=== PATIENT | male | born 1950 | race Caucasian/White ===

== ENCOUNTER 2024-07-09 11:35 | Outpatient (REF) | payer MEDICARE, SELFPAY ==
--- OUTSIDE RECORDS SUMMARY | 2024-07-09 14:03 | XMS_ITS ---
Author Organization [facility] Address [address] [place] [address] Care Team Providers Care Superintendent Board Mill Name Role Phone ReederGuanakito sherwood Primary Care Provider UnavailSujit López Unavailable [phone] Vaibhav Gordon Unavailable [phone] Allergies No Known Allergies REASON FOR VISIT Painful nail(s) aggrevated by shoes and causing difficulty standing/walking., Ingrown nail(s) Medications Medication SIG (Take, Route, Frequency, Duration) Notes Start Date End Date Status Doxycycline Calcium Active Digoxin 125 MCG Orally Acti ve Furosemide 20 MG as directed Orally Active Eliquis 5 MG Orally Active Atorvastatin Calcium 40 MG 1 tablet Oral ly Once a day for 30 day(s) Active Acetaminophen 2 capsules at bedtime Active Aspirin 81 MG 1 tablet Orally Once a day for 30 day(s) Active Vitamin D3 2000 [place] A [place] Amiodarone HCl 200 MG 1 tablet Orally On ce a day Active Tamsulosin HCl Activ e Metoprolol Succinate ER 25 MG 1 tablet Orally Once a day for 30 day(s) Active Losartan Potassium 25 MG 1 tablet Orally Once a day for 30 day(s) Active Probiotic Active Montelukast Sodium 10 MG 1 tablet Orally Once a day for 30 day(s) Active Social History Tobacco Use: Social History Observation Description Date Details (start date - stop date) Current Smoker NA - NA Tobacco Use/Smoking Question Answer Notes Are you a: current smoker How many cigarettes a day do you smoke? 21-30 Additional Findings: Tobacco Non-User Current no n-smoker Tobacco use other than smoking: Question Answer Notes Are you an other tobacco user? No Vital Signs Height 5ft 10in in 02/08/2024 Weight 250 lbs 02/08/2024 BMI 35.87 kg/m2 02/08/2024 Encounters Encounter Location Date Provider Diagnosis [facility] [address] [address] 02/08/2024 Vaibhav Gordon Pain in left foot M79.672 ; Pain in right foot M79.671 ; Ingrowing nail L60.0 ; Primary osteoarthritis, right ankle and foot M19.071 ; Tinea unguium B35.1 ; Pain in right toe(s) M79.674 ; Pain in left toe(s) M79.675 ; Other hammer toe(s) (acquired), left foot M20.42 and Atherosclerosis of artery of both lower extremities I70.203 Assessments Encounter Date Diagnosis (ICD Code) Assessment Notes Treatment Notes Treatment Clinical Notes Section Notes 02/08/2024 Pain in left foot (ICD-10 - M79.672) 02/08/2024 Pain in right foot (ICD-10 - M79.671) 02/08/2024 Ingrowing nail (ICD-10 - L60.0) 02/08/2024 Primary osteoarthritis, right ankle and foot (ICD-10 - M19.071) 02/08/2024 Tinea unguium (ICD-10 - B35.1) 02/08/2024 Pain in right toe(s) (ICD-10 - M79.674) 02/08/2024 Pain in left toe(s) (ICD-10 - M79.675) 02/08/2024 Other hammer toe(s) (acquired), left foot (ICD-10 - M20.42) 02/08/2024 Atherosclerosis of artery of both lower extremities (ICD-10 - I70.203) Plan Of Treatment Next Appt Details Follow Up: 3 Months, Reason: Provider Name:Sujit Main , 08/13/2024 01:00:00 PM, [address] [place] [address], [place] [address], [place], [address], Procedure Notes * Category Sub-Category Detail Notes Debride Nail 6-10 Nail debridement Nail debridem ent performed extensively to reduce/remove overall nail length and girth, subungual debris, and necrotic tissue, by manual and electrical means with use of a nail nipper and/or dremel, to more viable healthy nail plate or bed tissue 6-10. Silver nitrate used for any petechial bleeding as necessary. Patient chooses, no pharmaceutical tx (92004) Keratoma Treatment Parring or Cutting o f Benign Hyperkeratotic Lesion(s) 06735 ( 2-4 Lesions ) - The Benign hyperkeratotic lesions, as described above were pared, and/or cut utilizing a sterile 15 blade, tissue nippers, and/or dremel, Q8 Progress Notes * Willie EHNDERSON LDOB:[birth year] (73 yo M)Acc No.[id number]:02/08/2024 Progress Note Patient:?Willie Henderson Provider:?Vaibhav Gordon DPM :1950???Age:73 Y???Sex:Male Antonino e:02/08/2024 Address:[address] [place], [place] [id number] Pcp:Guanakito Reeder Subjective: * Chief Complaints: * ??? 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.?Foot Pain:?Nature:?aching, stiffness, swelling.?Location:?RIGHT, Rearfoot, Top, Outside.?Duration:?several years.?Onset:?pt recalls getting injury age 10 getting injured in spokes of tractor while planting cabbage with his father.?Aggravated:?especially toward the end of the day.?Treatments:?cortisone injection, improves condition.?Painful Nails:?Pt States Last PCP Visit:?Date:?10/19/2023 * ROS:?General/Constitutional:?Nausea?denies.?Vomiting?denies.?Hunger Thirst?denies.?Loss appetite?denies.?Chills?denies.?Fatigue?denies.?Fever?denies.?Night Sweats?denies.?Unexplained weight loss?denies.?Unexplained weight gain?denies.?HEENTM:?Dentures?denies.?Dizziness?denies.?Glasses/contacts?denies.?Retinopathy?de nies.?Blurred/double vision?denies.?TMJ?denies.?Discharge/drainage?denies.?Implants?denies.?Sore throat?denies.?Dental implants?denies.?Hard of hearing ?admits.?Difficulty chewing/swallowing/speaking?denies.?Nose bleeds?denies.?Sore mouth?denies.?Respiratory:?On Oxygen?denies.?Pneumonia/pleurisy?denies.?Bronchitis?denies.?Emphysema?denies.?C oughing?denies.?Cough blood?denies.?Shortness of breath?denies.?Wheezing?denies.?Cardiovascular:?Pacemaker?denies.?MVP?denies.?WPW?denies.?CHF?denies.?Heart attack?denies.?Septal defect?denies.?Rapid beat?denies.?Chest pain ?denies.?Atrial Fib.?admits.?Murmur/Palpitations?denies.?Gastrointestinal:?Hemorrhoids?denies.?Stomach/Abdominal pain?denies.?Dark blood stool?denies.?Irritable bowel ?denies.?Constipation?denies.?Diarrhea?denies.?Hematology:?Swelling?denies.?Clots?denies.?Varicose Veins?denies.?Bruising?denies.?Bleeding problem?denies.?Genitourinary:?Blood urine?denies.?Frequent/Painfu/urination/bladder control?denies.?Kidney stones?denies.?Infection (UTI)?denies.?Nephropathy?denies.?sex trans dis (STD)?denies.?Prostate?denies.?Musculoskeletal:?Hammertoes?denies.?Bunions?denies.?Back Pain?denies.?Muscle Cramps/ Resting?denies.?Muscle cramps / walking?denies.?Generalized aches and pains?denies.?Weakness?denies.?Integ.:?Brown?denies.?Scars?denies.?Corns/calluses?denies.?Ingrown nails?admits.?Painful nails?admits.?Open Sores?denies.?Rashes?denies.?Neurologic:?Difficulty sleeping?denies.?Brain disorder?denies.?Numbness?denies.?Balance trouble?denies.?Confusion?denies.?Fainting/blackouts?denies.?Tingling?denies.?Tr emors?denies.? * Medical History:? * Surgical History:?Blood clot 04/15/19Hematoma 04/16/19 * Hospitalization/Major Diagno stic Procedure:?[facility] Blood clot left leg 16 days 04/2019[facility] diverticulitis 09/2021[facility] chest xray 07/2023 * Family History:?Mother: dece ased, heart attack, poor circulation, diagnosed with Unspecified essential hypertension.?Father: , heart attack, poor circulation, diagnosed with Unspecified essential hypertension.?Spouse: alive.? * Social History:?Tobacco Use:?Tobacco Use/Smoking?Are you a:?current smoker ?How many cigarettes a day do you smoke??21-30 ?Additional Findings: Tobacco Non-User?Current non-smoker ?Tobacco use other than smoking?Are you an other tobacco user??No ???Miscellaneous:?Caffeine: yes, frequency:, 1-2 cups per day. ?Exercise: yes. ?Marital status: . ?Occupation: [employer]. * Medications:?TakingAcetamino phen 2 capsules at bedtimeAmiodarone HCl 200 MG Tablet 1 tablet Orally Once a dayAspirin 81 MG Tablet Chewable 1 tablet Orally Once a dayAtorvastatin Calcium 40 MG Tablet 1 tablet Orally Once a dayDigoxin 125 MCG Tablet Orally Doxycycline Calcium Eliquis 5 MG Tablet Orally Furosemide 20 MG Tablet as directed Orally Losartan Potassium 25 MG Tablet 1 tablet Orally Once a dayMetoprolol Succinate ER 25 MG Tablet Extended Release 24 Hour 1 tablet Orally Once a dayMontelukast Sodium 10 MG Tablet 1 tablet Orally Once a dayProbiotic Tamsulosin HCl Vitamin D3 1999 Medication List reviewed and reconciled with the patientTaking Acetaminophen 2 capsules at bedtimeTaking Amiodarone HCl 200 MG Tablet 1 tablet Orally Once a dayTaking Aspirin 81 MG Tablet Chewable 1 tablet Orally Once a dayTaking Atorvastatin Calcium 40 MG Tablet 1 tablet Orally Once a dayTaking Digoxin 125 MCG Tablet Orally Taking Doxycycline Calcium Taking Eliquis 5 MG Tablet Orally Taking Furosemide 20 MG Tablet as directed Orally Taking Losartan Potassium 25 MG Tablet 1 tablet Orally Once a dayTaking Metoprolol Succinate ER 25 MG Tablet Extended Release 24 Hour 1 tablet Orally Once a dayTaking Montelukast Sodium 10 MG Tablet 1 tablet Orally Once a dayTaking Probiotic Taking Tamsulosin HCl Taking Vitamin D3 1999 Medication List reviewed and reconciled with the patient * Allergies:?N.K.D.A.yes[Aller gies Verified] Objective: * Vitals:?Ht: 5ft 10in, Wt:250 , BMI:35.87, Shoe size:12. * Examination: ???General Examination: ?GENERAL APPEARANCE:?pleasant, alert, well nourished, well developed, well hydrated, with good attention to hygene/body habitus, and in no acute distress.?ORIENTED:?person,place, and time.?Neurological: ?SENSORY:?Neurological exam reveals intact sensorium, pain sensation normal, vibration sensation intact, pinprick sensation is normal in the lower extremities, Pt denies, anesthesia, burning, paresthesia, tingling, B/L, Neurological exam demonstrates pop anterior--lateral right ankle .?Vascular: ?DP PULSES:? 0/4, B/L.?PT PULSES:? 1/4, B/L.?CAPILLARY FILL TIME:? delayed, all digits, B/L.?SKIN TEMPERTURE GRADIENT OF THE LOWER EXTERMITIES:? decreased, cool to cold, proximal to distal, B/L.?HAIR GROWTH/TEXTURE/ELASTICITY/TURGOR:? decreased, B/L.?PIGMENTATION:? cyanotic, B/L.?EDEMA:? 1/4, B/L, Feet, Ankle(s), Leg(s).?Orthopedic: ?MUSCLE STRENGTH:?5/5 all groups in a symmetrical fashion , B/L.?Nails: ?NAILS are:?elongated,overgrown,dystrophic,greater than 3mm thick,discolored and friable with crumbly malodorous subungual debris, with pain on palpation, 1-5 B/L .?Dermatologic: ?SKIN FINDINGS:? Skin exam reveals Keratotic lesion(s) located at, Medial plantar, IPJ, TA, T5, Skin shows sign(s) of dried hematoma plm t5 ipj.? Assessment: * Assessment: 1.?Pain in left foot - M79.6 72?2.?Pain in right foot - M79.671?3.?Ingrowing nail - L60.0 (Primary)?4.?Primary osteoarthritis, right ankle and foot - M19.071?5.?Tinea unguium - B35.1?6.?Pain in right toe(s) - M79.674?7.?Pain in left toe(s) - M79.675?8.?Other hammer toe(s) (acquired), left foot - M20.42?9.?Atherosclerosis of artery of both lower extremities - I70.203? Plan: * Treatment: * Procedures:?Debride Nail 6-10:?Nail debridement?Nail debridement performed extensively to reduce/remove overall nail length and girth, subungual debris, and necrotic tissue, by manual and electrical means with use of a nail nipper and/or dremel, to more viable healthy nail plate or bed tissue 6-10. Silver nitrate used for any petechial bleeding as necessary. Patient chooses, no pharmaceutical tx (31574).?Keratoma Treatment:?Parring or Cutting of Benign Hyperkeratotic Lesion(s)?91920 ( 2-4 Lesions ) - The Benign hyperkeratotic lesions, as described above were pared, and/or cut utilizing a sterile 15 blade, tissue nippers, and/or dremel, Q8.? * Procedure Codes:?44743 DEBRI DE NAIL, 6 OR MORE, Modifiers: XS 49457 TRIM SKIN LESIONS, 2 TO 4, Modifiers: Q8 * Follow Up:?3 Months * Images: * Sign off status: Completed true * Provider:?Vaibhav Gordon DPM Date:? 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 Foot Pain Nature: aching, stiffness, swelling Location: RIGHT, Rearfoot, Top , Outside Duration: several years Onset: pt recalls getting i njury age 10 getting injured in spokes of tractor while planting cabbage with his father Aggravated: especially toward th e end of the day Treatments: cortisone injection, improves condition Examination Category Sub-Category Detail Notes Category Not es Neurological SENSORY: Neurological exa m reveals intact sensorium, pain sensation normal, vibration sensation intact, pinprick sensation is normal in the lower extremities, Pt denies, anesthesia, burning, paresthesia, tingling, B/L, Neurological exam demonstrates pop anterior--lateral right ankle Dermatologic SKIN FINDINGS: Skin exam reveal s Keratotic lesion(s) located at, Medial plantar, IPJ, TA, T5, Skin shows sign(s) of dried hematoma plm t5 ipj Orthopedic MUSCLE STRENGTH: 5/5 all groups in a symmetrical fashion , B/L General Examination GENERAL APPEARANCE: pleasant , alert, well nourished, well developed, well hydrated, with good attention to hygene/body habitus, and in no acute distress ORIENTED: person,place, and ti me Vascular DP PULSES (B): 0/4, B/L PT PULSES (B): 1/4, B/L CAPILLARY FILL TIME: delayed, all digits , B/L TEMPERTURE GRADIENT (C): decreased, cool to cold, proximal to distal, B/L TROPHIC CONDITION-TEXTURE/ELASTICITY/TURGOR/HAIR GROWTH (B): decreased, B/L EDEMA (C): 1/4, B/L, Feet, Ankl e(s), Leg(s) PIGMENTATION: cyanotic, B/L Nails NAILS are: elongated,overgr own,dystrophic,greater than 3mm thick,discolored and friable with crumbly malodorous subungual debris, with pain on palpation, 1-5 B/L
--- OUTSIDE RECORDS SUMMARY | 2024-07-09 14:03 | XMS_ITS | Clinical Summary ---
Author Organization [facility] Address [address] [place] [address] Care Team Providers Care Commodities Broker Name Role Phone Guankaito Reeder MD Primary Care Provider [phone] Allergies No known active allergies Medications Medication Sig Dispensed Refills Start Date End Date Status losartan (COZAAR) 100 MG tablet Take 100 mg by mouth daily. 0 Active dabigatran etexilate (PRADAXA) 150 MG capsu Take 150 mg by mouth 2 (two) times a day. 0 Active sildenafil (VIAGRA) 100 MG tablet Take 100 mg by mouth daily as needed for erectile dysfunction. 0 Active metoprolol succinate (TOPROL-XL) 24 hr tablet 50 mg Take by mouth daily. 0 Active simvastatin (ZOCOR) tablet 5 mg Take 5 mg by mouth every night at bedtime. 0 Active Active Problems No known active problems Social History Tobacco Use Types Packs/Day Years Used Date Smoking Tobacco: Every Day Cigarettes 1 Smokeless Tobacco: Never Alcohol Use Standard Drinks/Week Comments No 0 (1 standard drink = 0.6 oz pur e alcohol) Sex and Gender Information Value Date Recorded Sex Assigned at Male 02/27/2024 3:58 PM EDT Gender Identity Not on file Sexual Orientation Not on file Last Filed Vital Signs Vital Sign Reading Time Taken Comments Blood Pressure 150/81 04/30/2017 8:49 AM EST Pulse 56 04/30/2017 8:49 AM EST Temperature - - Respiratory Rate - - Oxygen Saturation - - Inhaled Oxygen Concentration - - Weight 128.5 kg (283 lb 3.2 oz) 04/30/2017 8:49 AM EST Height 172.7 cm (5' 8 ) 04/30/2017 8:49 AM EST Body Mass Index 43.06 04/30/2017 8:49 AM EST Plan of Treatment Health Maintenance Due Date Last Done Comments Hepatitis C Screening 1950 COVID-19 Vaccine (#1) 1950 Pneumococcal Vaccine (1 of 2 - PCV) 1956 Depression Screening 1962 Preventative Health Evaluation 1968 DTap / Tdap / Td (1 - Tdap) 1969 Colon Cancer Screening (Colonoscopy) 1995 Shingrix-Zoster Vaccine (1 of 2) 2000 Fall Risk Assessment 2015 Influenza Vaccine (#1) 2024 RSV Adult > 60+ Yrs or Pregn ant (1 - 1-dose 75+ series) 2025 Hepatitis B Vaccines Aged Out No long er eligible based on patient's age to complete this topic RSV Ped < 20 months Aged Out No longe r eligible based on patient's age to complete this topic Care Teams Commodities Broker Relationship Specialty Start Date End Date Guanakito Reeder MD PCP - General Internal Medicine 04/30/17
--- OUTSIDE RECORDS SUMMARY | 2024-07-09 14:04 | XMS_ITS | Continuity of Care Document ---
Author Organization [facility] Address [address] [place] [address]- Care Team Providers Care Aws Software Development Engineer Name Role Phone Varinder ALBA, Guanakito Sewell Primary Care Physician [place] [facility] [place] 06/02/24 - 07/02/24 [facility] [address] [place] [id number] Encounter Type: Triage Allergies, Adverse Reactions, Alerts No Known Medication Allergies Immunizations Given and Recorded Vaccine Date Status Refusal Reason Influenza Virus Vaccine (oldterm) 03/11/19 Recorde d Medications albuterol CFC free 90 mcg/inh inhalation aerosol 2, puffs, Inhalation, Every 6 hours, PRN, # 9 Gm, Refills 0, Maintenance, 04/17/19 7:19:46 PM EST, Aerosol Start Date: 04/17/19 Status: Ordered Quantity: 9.0 Unit: g Repeat number: 1 atorvastatin 40 mg oral tablet 1 tablet = 40 mg, By Mouth, Daily at bedtime, # 30 tablet, 0 Refills, Maintenance, 04/30/19 11:05:36 AM EST, Tablet, [id number] Start Date: 04/30/19 Status: Ordered Quantity: 30.0 Unit: tablet Repeat number: 1 digoxin 0.125 mg oral tablet 0.125 mg, 1, tablet, By Mouth, Daily, # 30 tablet, Refills 0, Tot. Refills 0, Maintenance, 04/30/1911:05:46 AM EST, Route to Pharmacy Electronically, [facility] #[id number] Start Date: 04/30/19 Status: Ordered Quantity: 30.0 Unit: tablet Repeat number: 1 Eliquis Starter Pack 5 mg oral tablet 1 tablet = 5 mg, By Mouth, 2 times a day, 0 Refills, Maintenance, 06/02/24 1:22:00 PM EST, Partial fill upon patient request if the prescription is for a schedule II opioid drug. Start Date: 06/02/24 Status: Ordered Repeat number: 1 losartan 25 mg oral tablet 25 mg, 1, tablet, By Mouth, Daily, Refills 0, Maintenance, 07/10/19 11:04:00 AM EST Start Date: 07/10/19 Status: Ordered Repeat number: 1 metoprolol 50 mg oral tablet 50 mg, 1, tablet, By Mouth, 2 times a day, # 60 tablet, Refills 0, Tot. Refills 0, Maintenance, 04/30/19 11:05:59 AM EST, Route to Pharmacy Electronically, [facility] #[id number] Start Date: 04/30/19 Status: Ordered Quantity: 60.0 Unit: tablet Repeat number: 1 montelukast 10 mg oral tablet 10 mg, 1, tablet, By Mouth, Daily, Refills 0, Maintenance, 01/16/18 7:23:05 AM EDT Start Date: 01/16/18 Status: Ordered Repeat number: 1 Pantoprazole Daily, 0 Refills, Maintenance, 06/02/24 1:22:00 PM EST Start Date: 06/02/24 Status: Ordered Repeat number: 1 Probiotic Formula By Mouth, Daily, 0 Refills, Maintenance, 07/10/19 11:05:00 AM EST Start Date: 07/10/19 Status: Ordered Repeat number: 1 Tamsulosin 0.4 mg, By Mouth, Daily, Refills 0, Maintenance, 06/02/24 1:23:00 PM EST, Partial fill upon patientrequest if the prescription is for a schedule II opioid drug. Start Date: 06/02/24 Status: Ordered Repeat number: 1 Vitamin D3 = 2,000 International_Units, By Mouth, Daily, 0 Refills, Maintenance, 07/10/19 11:05:00 AM EST Start Date: 07/10/19 Status: Ordered Repeat number: 1 Problem List Condition Confirmation Course Effective Dates Status Health St atus Informant Obese class II Confirmed Active Social History Social History Type Response Smoking Status Former smoker, quit more than 30 days ago entered on: 07/10/19 Sex Sex Representation Male (finding) Patient Care team information Care Team Personnel Name: Ephraim Mendez RN Position: [facility] RN Member Role: Primary Care Nurse Name: Adry Avelar RN Position: [facility] AMB Nurse Member Role: Primary Care Nurse Name: Joslyn Butt NP Position: [facility] PCO Associate Professional Member Role: Primary Care Nurse Address: [address] [place] [address]- [place] [employer]: Name: Guanakito Reeder MD Position: [facility] Physician - Primary Care Member Role: PCP Address: [address], [address] Primary Care [place] [address]- [place] [employer]: Name: Amira Esteban RN Position: [facility] RN Member Role: Primary Care Nurse Name: Shannon Bnigham RN Position: [facility] ED RN W/OE and Tasks Member Role: Primary Care Nurse Name: Saray Grant Position: [facility] Outreach Member Role: Lifetime Consulting Physician Name: Gogo Barajas RN Position: [facility] Onco RN Member Role: Primary Care Nurse Name: Lavinia Hazel RN Position: [facility] RN Member Role: Primary Care Nurse Care Team Related Persons Name: BENNETT HENDERSON Name: LIOR HENDERSON Insurance Providers Guarantor name: ISABELLA HENDERSON Health Plan Information #: 1 Payer: MEDICARE PART B OUTPT Member Number: NA Policy Number: NA Group Number: NA Health Plan Information #: 2 Payer: MEDEX Member Number: NA Policy Number: NA Group Number: NA
--- OUTSIDE RECORDS SUMMARY | 2024-07-09 14:04 | XMS_ITS ---
Author Organization [facility] Address [address] [place] [address] Care Team Providers Care Magazine Writer Name Role Phone BRIDGET BENITEZ Primary Care Provider THANIA BAILEY Unavailable [phone] REASON FOR VISIT labs Encounters Encounter Location Date Provider Diagnosis [facility] [address] [address] 05/15/2024 THANIA LYNN Low platelet count D 69.6 and Elevated rheumatoid factor R76.8 ASSESSMENTS Encounter Date Diagnosis Assessment Notes Treatment Notes Treatment Clinical Notes Section Notes 05/15/2024 Low platelet count (ICD-10 - D69.6) 05/15/2024 Elevated rheumatoid factor (ICD-10 - R76.8) PLAN OF TREATMENT Pending Test Test Name Order Date LIPID PANEL, STANDARD 05/15/2024 COMPREHENSIVE METABOLIC PANEL 05/15/2024 BASIC METABOLIC PANEL 05/15/2024 CBC (INCLUDES DIFF/PLT) 05/15/2024 C-REACTIVE PROTEIN 05/15/2024 VITAMIN B12 05/15/2024 VITAMIN D,25-OH,TOTAL,IA 05/15/2024 DIGOXIN 05/15/2024 Next Appt Details Provider Name:THANIA BAILEY, 01:00:00 PM, [address] , [place], [address], Progress Notes * ISABELLA HENDERSON LDOB:[birth year] (74 yo M)Acc No.[id number]:05/15/2024 Patient:??ISABELLA HENDERSON :1950?Age:74 Y?Sex:Kristen springer Address:[address], [place] [address] Subjective: * Chief Complaints: * ?Labs * Medical History:?? * Surgical History:?? * Hospitalization/Major Diagno stic Procedure:?? * Medications:?? Objective: Assessment: * Assessment: 1.??Low platelet count - D69 .6??2.??Elevated rheumatoid factor - R76.8?? Plan: * Treatment: 2.??Elevated rheumatoid fact or?LAB: LIPID PANEL, STANDARD ?LAB: COMPREHENSIVE METABOLIC PANEL ?LAB: BASIC METABOLIC PANEL ?LAB: CBC (INCLUDES DIFF/PLT) ?LAB: C-REACTIVE PROTEIN ?LAB: VITAMIN B12 ?LAB: VITAMIN D,25-OH,TOTAL,IA ?LAB: DIGOXIN * Procedure Codes:?? * true * Date:??
--- OUTSIDE RECORDS SUMMARY | 2024-07-09 14:04 | XMS_ITS | Continuity of Care Document ---
Author Organization [facility] Address [address] [place] [address]- Care Team Providers Care Manager Infusion Name Role Phone Varinder ALBA, Guanakito Sewell Primary Care Physician [phone] [place] [facility] [place]): [place]19/24 - 06/18/24 [facility] [address] [place] [id number] Attending Physician: Ladarius Lr Admitting Physician: Ladarius Lr Referring Physician: Admtr ArFelicia Encounter Type: Triage Allergies, Adverse Reactions, Alerts [...] Refills, Maintenance, 04/30/19 11:05:36 AM EST, Tablet, [facility] #[id number] Start Date: 04/30/19 Status: Ordered Quantity: 30.0 Unit: tablet Repeat number: 1 digoxin 0.125 mg oral tablet 0.125 mg, 1, tablet, By Mouth, Daily, # 30 tablet, Refills 0, Tot. Refills 0, Maintenance, 04/30/1911:05:46 AM EST, Route to Pharmacy Electronically, [facility] #[id number] Start Date: 04/30/19 Status: Ordered Quantity: 30.0 [...] 11:05:59 AM EST, Route to Pharmacy Electronically, [facility] #[id number] Start Date: 04/30/19 Status: Ordered Quantity: 60.0 [...] Team Personnel Name: Ephraim Mendez RN Position: [facility] RN Member Role: Primary Care Nurse Name: Adry Avelar RN Position: [facility] AMB Nurse Member Role: Primary Care Nurse Name: Joslyn Butt NP Position: [facility] PCO Associate Professional Member Role: Primary Care Nurse Address: [address] [place] [id number]: Name: Guanakito Reeder MD Position: [facility] Physician - Primary Care Member Role: PCP Address: [address] [place] [address], [address] [facility] [place] [address]- [employer]: Name: Amira Esteban RN Position: [facility] RN Member Role: Primary Care Nurse Name: Shannon Bingham RN Position: [facility] ED RN W/OE and Tasks Member Role: Primary Care Nurse Name: aSray Grant Position: [facility] Outreach Member Role: Lifetime Consulting Physician Name: Lavinia Hazel RN Position: [facility] RN Member Role: Primary Care Nurse Care [...]
--- OUTSIDE RECORDS SUMMARY | 2024-07-09 14:04 | XMS_ITS ---
Author Organization [employer] [facility] [place] [place] [address] Care Team Providers Care Obstetrics And Gynecology Professor Name Role Phone BRIDGET BENITEZ Primary Care Provider THANIA BAILEY Unavailable [phone] REASON FOR VISIT abnormal results MEDICATIONS Medication SIG (Take, Route, Frequency, Duration) Notes Start Date End Date Status Atorvastatin Calcium 40 MG TAKE 1 TABLET BY MOUTH EVERY DAY for 90 Active Breo Ellipta 100-25 MCG/INH 1 Puff inhal ation once daily for 30 days PRN Active Digoxin 125 MCG TAKE 1 TABLET BY BANDAR TH EVERY DAY for 90 Active traMADol HCl 50 MG 1 tablet as needed Orally twice a day for 30 days PRN 01/30/2022 Unknown Gabapentin 300 MG TAKE 1 CAPSULE BY MO UTH EVERY DAY AT BEDTIME for 30 Unknown Montelukast Sodium 10 MG TAKE 1 TABLET B Y MOUTH EVERY EVENING for 90 Active Albuterol Sulfate HFA 108 (90 Base) MCG/ACT 1-2 puff as needed for sob Inhalation every 6 hrs for 30 days Active Sildenafil Citrate 100 MG 1 tablet as ne eded for sex Orally Once a day for 30 days 10/31/2023 Active Tamsulosin HCl 0.4 MG TAKE 1 CAPSULE BY MOUTH EVERY DAY for 90 Active Metoprolol Tartrate 50 MG 1 tablet with food Orally Twice a day for 90 days Active Eliquis 5 MG TAKE 1 TABLET BY BANDAR TH TWICE DAILY for 90 Active Pantoprazole Sodium 40 MG TAKE 1 TABLET BY MOUTH EVERY DAY for 90 Active Losartan Potassium 25 MG TAKE 1 TABLET B Y MOUTH EVERY DAY for 90 Active PROBLEMS Problem Type ICD Code Onset Dates Problem Status W/U Status Risk SNOMED Code Notes Problem Erythrocytosis (D75.1) Active confirmed 355140855 Problem Mixed hyperlipidemia (E78.2) Active confirmed 458173494 Problem Essential hypertension (I10) Active confirmed [id number] Encounters Encounter Location Date Provider Diagnosis [facility] [address] [place] [address] 05/15/2024 THANIA BAILEY Paroxysmal atrial fibrillation I48.0 ; Heart failure, unspecified I50.9 ; Thrombocytopenia D69.6 ; Hand pain, left M79.642 ; Hand pain, right M79.641 ; Erythrocytosis D75.1 ; Mixed hyperlipidemia E78.2 and Essential hypertension I10 ASSESSMENTS Encounter Date Diagnosis Assessment Notes Treatment Notes Treatment Clinical Notes Section Notes 05/15/2024 Paroxysmal atrial fibrillation (ICD-10 - I48.0) Emir is a pleasant 74-year-old medically complex male who presents via telehealth in regards to his abnormal lab results that were ordered by , a hand surgeon. #vascular surgery note from [facility]: Date of service 08/12/2020, plan stated he is a non-smoker he is on aspirin and apixaban as well as a statin. There has been no progression of the carotid plaque or symptoms, based on imaging end-diastolic velocity appears less than 80%. 11/03/2021 vascular note states, continue medical therapy, asymptomatic moderate right carotid stenosis, recommendation was to repeat scan in 1 year. At follow-up question why patient did not choose to follow-up with vascular. Patient would benefit from a repeat scan to assess patency of bilateral carotid arteries #Last hematology note: Patient was last seen by [facility] hematology on 07/30/2019, this states that the patient was hospitalized in April 2019 with sudden onset left foot pain with diminished pulses, patient was on Pradaxa at that time. Presented with a hemoglobin of 18.1 and hematocrit of 55.8, heparin drip was initiated and the patient went to the OR for surgical management. At this time testing during this hospitalization revealed an elevated erythropoietin level, negative JAK2 mutation and negative hypercoagulable panel. Imaging did not show hepatosplenomegaly, and the patient was discharged on warfarin but switched to apixaban. #Secondary erythrocytosis: Note from 2019 hematology suggests that this erythrocytosis is secondary to extensive smoking and suspected sleep apnea. #CBC conducted on 04/22/2024 demonstrated a red blood cell count of 6.14, H&H values of 18.9 and 57.6. Additionally platelet count demonstrated a decrease with a value of 50. Patient aware of these concerning findings at this time, and is in agreement to see hematology. Hematology referral will be placed. #Elevated rheumatoid factor: Rheumatoid factor ordered on 04/22/2024 demonstrated a value of 165, referral placed for rheumatology at this time. #Chronic A-fib on anticoagulation: Eliquis 5 mg p.o. twice daily on digoxin. Dig level should be obtained for follow-up visit in July. #Essential hypertension: Continue taking losartan, will reevaluate at the patient's follow-up. #Chronic tobacco use: Will discuss tobacco cessation at the follow-up visit, patient does admit to smoking daily. #Peripheral vascular disease: Consider referral to vascular surgery if the patient has any complaints about leg pain #Hyperlipidemia: Continue atorvastatin 40 mg tablets All questions have been answered to patient's satisfaction. Patient verbalized understanding of diagnosis and treatments explained. Advised to call sooner prior to next visit it any questions/concerns arise. Case discussed with Anna ALBA who reviewed the assessment and plan. Chart, medications, labs, vital signs reviewed. Dictation was accomplished with the use of [employer] voice recognition software, which is prone to medical misidentifications and grammatical errors. This are unintentional and the practitioner does try to identify and correct these, but some could still be present. Please do not hesitate to contact practitioner for clarification. 05/15/2024 Heart failure, unspecified (ICD-10 - I50.9) Emir is a pleasant 74-year-old medically complex male who presents via telehealth in regards to his abnormal lab results that were ordered by , a hand surgeon. #vascular surgery note from [facility]: Date of service 08/12/2020, plan stated he is a non-smoker he is on aspirin and apixaban as well as a statin. There has been no progression of the carotid plaque or symptoms, based on imaging end-diastolic velocity appears less than 80%. 11/03/2021 vascular note states, continue medical therapy, asymptomatic moderate right carotid stenosis, recommendation was to repeat scan in 1 year. At follow-up question why patient did not choose to follow-up with vascular. Patient would benefit from a repeat scan to assess patency of bilateral carotid arteries #Last hematology note: Patient was last seen by [facility] hematology on 07/30/2019, this states that the patient was hospitalized in April 2019 with sudden onset left foot pain with diminished pulses, patient was on Pradaxa at that time. Presented with a hemoglobin of 18.1 and hematocrit of 55.8, heparin drip was initiated and the patient went to the OR for surgical management. At this time testing during this hospitalization revealed an elevated erythropoietin level, negative JAK2 mutation and negative hypercoagulable panel. Imaging did not show hepatosplenomegaly, and the patient was discharged on warfarin but switched to apixaban. #Secondary erythrocytosis: Note from 2019 hematology suggests that this erythrocytosis is secondary to extensive smoking and suspected sleep apnea. #CBC conducted on 04/22/2024 demonstrated a red blood cell count of 6.14, H&H values of 18.9 and 57.6. Additionally platelet count demonstrated a decrease with a value of 50. Patient aware of these concerning findings at this time, and is in agreement to see hematology. Hematology referral will be placed. #Elevated rheumatoid factor: Rheumatoid factor ordered on 04/22/2024 demonstrated a value of 165, referral placed for rheumatology at this time. #Chronic A-fib on anticoagulation: Eliquis 5 mg p.o. twice daily on digoxin. Dig level should be obtained for follow-up visit in July. #Essential hypertension: Continue taking losartan, will reevaluate at the patient's follow-up. #Chronic tobacco use: Will discuss tobacco cessation at the follow-up visit, patient does admit to smoking daily. #Peripheral vascular disease: Consider referral to vascular surgery if the patient has any complaints about leg pain #Hyperlipidemia: Continue atorvastatin 40 mg tablets All questions have been answered to patient's satisfaction. Patient verbalized understanding of diagnosis and treatments explained. Advised to call sooner prior to next visit it any questions/concerns arise. Case discussed with Anna ALBA who reviewed the assessment and plan. Chart, medications, labs, vital signs reviewed. Dictation was accomplished with the use of [employer] voice recognition software, which is prone to medical misidentifications and grammatical errors. This are unintentional and the practitioner does try to identify and correct these, but some could still be present. Please do not hesitate to contact practitioner for clarification. 05/15/2024 Thrombocytopenia (ICD-10 - D69.6) Emir is a pleasant 74-year-old medically complex male who presents via telehealth in regards to his abnormal lab results that were ordered by , a hand surgeon. #vascular surgery note from [facility]: Date of service 08/12/2020, plan stated he is a non-smoker he is on aspirin and apixaban as well as a statin. There has been no progression of the carotid plaque or symptoms, based on imaging end-diastolic velocity appears less than 80%. 11/03/2021 vascular note states, continue medical therapy, asymptomatic moderate right carotid stenosis, recommendation was to repeat scan in 1 year. At follow-up question why patient did not choose to follow-up with vascular. Patient would benefit from a repeat scan to assess patency of bilateral carotid arteries #Last hematology note: Patient was last seen by [facility] hematology on 07/30/2019, this states that the patient was hospitalized in April 2019 with sudden onset left foot pain with diminished pulses, patient was on Pradaxa at that time. Presented with a hemoglobin of 18.1 and hematocrit of 55.8, heparin drip was initiated and the patient went to the OR for surgical management. At this time testing during this hospitalization revealed an elevated erythropoietin level, negative JAK2 mutation and negative hypercoagulable panel. Imaging did not show hepatosplenomegaly, and the patient was discharged on warfarin but switched to apixaban. #Secondary erythrocytosis: Note from 2019 hematology suggests that this erythrocytosis is secondary to extensive smoking and suspected sleep apnea. #CBC conducted on 04/22/2024 demonstrated a red blood cell count of 6.14, H&H values of 18.9 and 57.6. Additionally platelet count demonstrated a decrease with a value of 50. Patient aware of these concerning findings at this time, and is in agreement to see hematology. Hematology referral will be placed. #Elevated rheumatoid factor: Rheumatoid factor ordered on 04/22/2024 demonstrated a value of 165, referral placed for rheumatology at this time. #Chronic A-fib on anticoagulation: Eliquis 5 mg p.o. twice daily on digoxin. Dig level should be obtained for follow-up visit in July. #Essential hypertension: Continue taking losartan, will reevaluate at the patient's follow-up. #Chronic tobacco use: Will discuss tobacco cessation at the follow-up visit, patient does admit to smoking daily. #Peripheral vascular disease: Consider referral to vascular surgery if the patient has any complaints about leg pain #Hyperlipidemia: Continue atorvastatin 40 mg tablets All questions have been answered to patient's satisfaction. Patient verbalized understanding of diagnosis and treatments explained. Advised to call sooner prior to next visit it any questions/concerns arise. Case discussed with Anna ALBA who reviewed the assessment and plan. Chart, medications, labs, vital signs reviewed. Dictation was accomplished with the use of [employer] voice recognition software, which is prone to medical misidentifications and grammatical errors. This are unintentional and the practitioner does try to identify and correct these, but some could still be present. Please do not hesitate to contact practitioner for clarification. 05/15/2024 Hand pain, left (ICD-10 - M79.642) Emir is a pleasant 74-year-old medically complex male who presents via telehealth in regards to his abnormal lab results that were ordered by , a hand surgeon. #vascular surgery note from [facility]: Date of service 08/12/2020, plan stated he is a non-smoker he is on aspirin and apixaban as well as a statin. There has been no progression of the carotid plaque or symptoms, based on imaging end-diastolic velocity appears less than 80%. 11/03/2021 vascular note states, continue medical therapy, asymptomatic moderate right carotid stenosis, recommendation was to repeat scan in 1 year. At follow-up question why patient did not choose to follow-up with vascular. Patient would benefit from a repeat scan to assess patency of bilateral carotid arteries #Last hematology note: Patient was last seen by [facility] hematology on 07/30/2019, this states that the patient was hospitalized in April 2019 with sudden onset left foot pain with diminished pulses, patient was on Pradaxa at that time. Presented with a hemoglobin of 18.1 and hematocrit of 55.8, heparin drip was initiated and the patient went to the OR for surgical management. At this time testing during this hospitalization revealed an elevated erythropoietin level, negative JAK2 mutation and negative hypercoagulable panel. Imaging did not show hepatosplenomegaly, and the patient was discharged on warfarin but switched to apixaban. #Secondary erythrocytosis: Note from 2019 hematology suggests that this erythrocytosis is secondary to extensive smoking and suspected sleep apnea. #CBC conducted on 04/22/2024 demonstrated a red blood cell count of 6.14, H&H values of 18.9 and 57.6. Additionally platelet count demonstrated a decrease with a value of 50. Patient aware of these concerning findings at this time, and is in agreement to see hematology. Hematology referral will be placed. #Elevated rheumatoid factor: Rheumatoid factor ordered on 04/22/2024 demonstrated a value of 165, referral placed for rheumatology at this time. #Chronic A-fib on anticoagulation: Eliquis 5 mg p.o. twice daily on digoxin. Dig level should be obtained for follow-up visit in July. #Essential hypertension: Continue taking losartan, will reevaluate at the patient's follow-up. #Chronic tobacco use: Will discuss tobacco cessation at the follow-up visit, patient does admit to smoking daily. #Peripheral vascular disease: Consider referral to vascular surgery if the patient has any complaints about leg pain #Hyperlipidemia: Continue atorvastatin 40 mg tablets All questions have been answered to patient's satisfaction. Patient verbalized understanding of diagnosis and treatments explained. Advised to call sooner prior to next visit it any questions/concerns arise. Case discussed with Anna ALBA who reviewed the assessment and plan. Chart, medications, labs, vital signs reviewed. Dictation was accomplished with the use of [employer] voice recognition software, which is prone to medical misidentifications and grammatical errors. This are unintentional and the practitioner does try to identify and correct these, but some could still be present. Please do not hesitate to contact practitioner for clarification. 05/15/2024 Hand pain, right (ICD-10 - M79.641) Emir is a pleasant 74-year-old medically complex male who presents via telehealth in regards to his abnormal lab results that were ordered by , a hand surgeon. #vascular surgery note from [facility]: Date of service 08/12/2020, plan stated he is a non-smoker he is on aspirin and apixaban as well as a statin. There has been no progression of the carotid plaque or symptoms, based on imaging end-diastolic velocity appears less than 80%. 11/03/2021 vascular note states, continue medical therapy, asymptomatic moderate right carotid stenosis, recommendation was to repeat scan in 1 year. At follow-up question why patient did not choose to follow-up with vascular. Patient would benefit from a repeat scan to assess patency of bilateral carotid arteries #Last hematology note: Patient was last seen by [facility] hematology on 07/30/2019, this states that the patient was hospitalized in April 2019 with sudden onset left foot pain with diminished pulses, patient was on Pradaxa at that time. Presented with a hemoglobin of 18.1 and hematocrit of 55.8, heparin drip was initiated and the patient went to the OR for surgical management. At this time testing during this hospitalization revealed an elevated erythropoietin level, negative JAK2 mutation and negative hypercoagulable panel. Imaging did not show hepatosplenomegaly, and the patient was discharged on warfarin but switched to apixaban. #Secondary erythrocytosis: Note from 2019 hematology suggests that this erythrocytosis is secondary to extensive smoking and suspected sleep apnea. #CBC conducted on 04/22/2024 demonstrated a red blood cell count of 6.14, H&H values of 18.9 and 57.6. Additionally platelet count demonstrated a decrease with a value of 50. Patient aware of these concerning findings at this time, and is in agreement to see hematology. Hematology referral will be placed. #Elevated rheumatoid factor: Rheumatoid factor ordered on 04/22/2024 demonstrated a value of 165, referral placed for rheumatology at this time. #Chronic A-fib on anticoagulation: Eliquis 5 mg p.o. twice daily on digoxin. Dig level should be obtained for follow-up visit in July. #Essential hypertension: Continue taking losartan, will reevaluate at the patient's follow-up. #Chronic tobacco use: Will discuss tobacco cessation at the follow-up visit, patient does admit to smoking daily. #Peripheral vascular disease: Consider referral to vascular surgery if the patient has any complaints about leg pain #Hyperlipidemia: Continue atorvastatin 40 mg tablets All questions have been answered to patient's satisfaction. Patient verbalized understanding of diagnosis and treatments explained. Advised to call sooner prior to next visit it any questions/concerns arise. Case discussed with Anna ALBA who reviewed the assessment and plan. Chart, medications, labs, vital signs reviewed. Dictation was accomplished with the use of [employer] voice recognition software, which is prone to medical misidentifications and grammatical errors. This are unintentional and the practitioner does try to identify and correct these, but some could still be present. Please do not hesitate to contact practitioner for clarification. 05/15/2024 Erythrocytosis (ICD-10 - D75.1) Emir is a pleasant 74-year-old medically complex male who presents via telehealth in regards to his abnormal lab results that were ordered by , a hand surgeon. #vascular surgery note from [facility]: Date of service 08/12/2020, plan stated he is a non-smoker he is on aspirin and apixaban as well as a statin. There has been no progression of the carotid plaque or symptoms, based on imaging end-diastolic velocity appears less than 80%. 11/03/2021 vascular note states, continue medical therapy, asymptomatic moderate right carotid stenosis, recommendation was to repeat scan in 1 year. At follow-up question why patient did not choose to follow-up with vascular. Patient would benefit from a repeat scan to assess patency of bilateral carotid arteries #Last hematology note: Patient was last seen by [facility] hematology on 07/30/2019, this states that the patient was hospitalized in April 2019 with sudden onset left foot pain with diminished pulses, patient was on Pradaxa at that time. Presented with a hemoglobin of 18.1 and hematocrit of 55.8, heparin drip was initiated and the patient went to the OR for surgical management. At this time testing during this hospitalization revealed an elevated erythropoietin level, negative JAK2 mutation and negative hypercoagulable panel. Imaging did not show hepatosplenomegaly, and the patient was discharged on warfarin but switched to apixaban. #Secondary erythrocytosis: Note from 2019 hematology suggests that this erythrocytosis is secondary to extensive smoking and suspected sleep apnea. #CBC conducted on 04/22/2024 demonstrated a red blood cell count of 6.14, H&H values of 18.9 and 57.6. Additionally platelet count demonstrated a decrease with a value of 50. Patient aware of these concerning findings at this time, and is in agreement to see hematology. Hematology referral will be placed. #Elevated rheumatoid factor: Rheumatoid factor ordered on 04/22/2024 demonstrated a value of 165, referral placed for rheumatology at this time. #Chronic A-fib on anticoagulation: Eliquis 5 mg p.o. twice daily on digoxin. Dig level should be obtained for follow-up visit in July. #Essential hypertension: Continue taking losartan, will reevaluate at the patient's follow-up. #Chronic tobacco use: Will discuss tobacco cessation at the follow-up visit, patient does admit to smoking daily. #Peripheral vascular disease: Consider referral to vascular surgery if the patient has any complaints about leg pain #Hyperlipidemia: Continue atorvastatin 40 mg tablets All questions have been answered to patient's satisfaction. Patient verbalized understanding of diagnosis and treatments explained. Advised to call sooner prior to next visit it any questions/concerns arise. Case discussed with Anna ALBA who reviewed the assessment and plan. Chart, medications, labs, vital signs reviewed. Dictation was accomplished with the use of [employer] voice recognition software, which is prone to medical misidentifications and grammatical errors. This are unintentional and the practitioner does try to identify and correct these, but some could still be present. Please do not hesitate to contact practitioner for clarification. 05/15/2024 Mixed hyperlipidemia (ICD-10 - E78.2) Emir is a pleasant 74-year-old medically complex male who presents via telehealth in regards to his abnormal lab results that were ordered by , a hand surgeon. #vascular surgery note from [facility]: Date of service 08/12/2020, plan stated he is a non-smoker he is on aspirin and apixaban as well as a statin. There has been no progression of the carotid plaque or symptoms, based on imaging end-diastolic velocity appears less than 80%. 11/03/2021 vascular note states, continue medical therapy, asymptomatic moderate right carotid stenosis, recommendation was to repeat scan in 1 year. At follow-up question why patient did not choose to follow-up with vascular. Patient would benefit from a repeat scan to assess patency of bilateral carotid arteries #Last hematology note: Patient was last seen by [facility] hematology on 07/30/2019, this states that the patient was hospitalized in April 2019 with sudden onset left foot pain with diminished pulses, patient was on Pradaxa at that time. Presented with a hemoglobin of 18.1 and hematocrit of 55.8, heparin drip was initiated and the patient went to the OR for surgical management. At this time testing during this hospitalization revealed an elevated erythropoietin level, negative JAK2 mutation and negative hypercoagulable panel. Imaging did not show hepatosplenomegaly, and the patient was discharged on warfarin but switched to apixaban. #Secondary erythrocytosis: Note from 2019 hematology suggests that this erythrocytosis is secondary to extensive smoking and suspected sleep apnea. #CBC conducted on 04/22/2024 demonstrated a red blood cell count of 6.14, H&H values of 18.9 and 57.6. Additionally platelet count demonstrated a decrease with a value of 50. Patient aware of these concerning findings at this time, and is in agreement to see hematology. Hematology referral will be placed. #Elevated rheumatoid factor: Rheumatoid factor ordered on 04/22/2024 demonstrated a value of 165, referral placed for rheumatology at this time. #Chronic A-fib on anticoagulation: Eliquis 5 mg p.o. twice daily on digoxin. Dig level should be obtained for follow-up visit in July. #Essential hypertension: Continue taking losartan, will reevaluate at the patient's follow-up. #Chronic tobacco use: Will discuss tobacco cessation at the follow-up visit, patient does admit to smoking daily. #Peripheral vascular disease: Consider referral to vascular surgery if the patient has any complaints about leg pain #Hyperlipidemia: Continue atorvastatin 40 mg tablets All questions have been answered to patient's satisfaction. Patient verbalized understanding of diagnosis and treatments explained. Advised to call sooner prior to next visit it any questions/concerns arise. Case discussed with Anna ALBA who reviewed the assessment and plan. Chart, medications, labs, vital signs reviewed. Dictation was accomplished with the use of [employer] voice recognition software, which is prone to medical misidentifications and grammatical errors. This are unintentional and the practitioner does try to identify and correct these, but some could still be present. Please do not hesitate to contact practitioner for clarification. 05/15/2024 Essential hypertension (ICD-10 - I10) Emir is a pleasant 74-year-old medically complex male who presents via telehealth in regards to his abnormal lab results that were ordered by , a hand surgeon. #vascular surgery note from [facility]: Date of service 08/12/2020, plan stated he is a non-smoker he is on aspirin and apixaban as well as a statin. There has been no progression of the carotid plaque or symptoms, based on imaging end-diastolic velocity appears less than 80%. 11/03/2021 vascular note states, continue medical therapy, asymptomatic moderate right carotid stenosis, recommendation was to repeat scan in 1 year. At follow-up question why patient did not choose to follow-up with vascular. Patient would benefit from a repeat scan to assess patency of bilateral carotid arteries #Last hematology note: Patient was last seen by [facility] hematology on 07/30/2019, this states that the patient was hospitalized in April 2019 with sudden onset left foot pain with diminished pulses, patient was on Pradaxa at that time. Presented with a hemoglobin of 18.1 and hematocrit of 55.8, heparin drip was initiated and the patient went to the OR for surgical management. At this time testing during this hospitalization revealed an elevated erythropoietin level, negative JAK2 mutation and negative hypercoagulable panel. Imaging did not show hepatosplenomegaly, and the patient was discharged on warfarin but switched to apixaban. #Secondary erythrocytosis: Note from 2019 hematology suggests that this erythrocytosis is secondary to extensive smoking and suspected sleep apnea. #CBC conducted on 04/22/2024 demonstrated a red blood cell count of 6.14, H&H values of 18.9 and 57.6. Additionally platelet count demonstrated a decrease with a value of 50. Patient aware of these concerning findings at this time, and is in agreement to see hematology. Hematology referral will be placed. #Elevated rheumatoid factor: Rheumatoid factor ordered on 04/22/2024 demonstrated a value of 165, referral placed for rheumatology at this time. #Chronic A-fib on anticoagulation: Eliquis 5 mg p.o. twice daily on digoxin. Dig level should be obtained for follow-up visit in July. #Essential hypertension: Continue taking losartan, will reevaluate at the patient's follow-up. #Chronic tobacco use: Will discuss tobacco cessation at the follow-up visit, patient does admit to smoking daily. #Peripheral vascular disease: Consider referral to vascular surgery if the patient has any complaints about leg pain #Hyperlipidemia: Continue atorvastatin 40 mg tablets All questions have been answered to patient's satisfaction. Patient verbalized understanding of diagnosis and treatments explained. Advised to call sooner prior to next visit it any questions/concerns arise. Case discussed with Anna ALBA who reviewed the assessment and plan. Chart, medications, labs, vital signs reviewed. Dictation was accomplished with the use of [employer] voice recognition software, which is prone to medical misidentifications and grammatical errors. This are unintentional and the practitioner does try to identify and correct these, but some could still be present. Please do not hesitate to contact practitioner for clarification. PLAN OF TREATMENT Next Appt Details Provider Name:THANIA LYNN, 01:00:00 PM, [address], [place], [address], Progress Notes * ISABELLA HENDERSON LDOB:[birth year] (74 yo M)Acc No.[id number]:05/15/2024 Patient:??ISABELLA HENDERSON Provider:??THANIA BAILEY PA-C :1950?Age:74 Y?Sex:Kristen le Date:05/15/2024 Address:[address] , [facility] Pcp:BRIDGET BENITEZ Subjective: * Chief Complaints: * ?1. Abnormal results. * HPI: ?Constitutional:? Emir is a pleasant 74-year-old complex male, with a past medical history significant for atrial fibrillation on anticoagulation, hypertension, hyperlipidemia, GERD, asthma, heart failure, prediabetes, obesity, PVD, nicotine abuse who presents via telehealth in regards to lab work that was ordered by a referring physician. Patient was seen recently by Dr. Patricio, who works in hand surgery through [facility]. Patient CBC demonstrated a red blood cell count of 6.14, H&H 18.9 and 57.6 as well as a platelet count of 50. His previous CBC demonstrated an red blood cell count of 6.17, hemoglobin and hematocrit of 19.6 and 59.3 as well as a platelet count of 70. Due to the platelet count decreasing by 20 at this time patient agrees to be seen by hematology for his chronic thrombocytopenia. Additionally the patient's Lyme panel notable for an abnormal IgG panel, as well as a rheumatoid factor with a value of 165. At this time the patient is in agreement to see rheumatology, for further evaluation of his consistent bilateral hand pain. * ROS:?Constitutional: Patient denies any excessive fatigue with exercise, no weight loss, no fever and no night sweats ???Eyes: No eye discharge, no itching, no redness. Advised the significance of regular eye exams to screen for glaucoma and other eye problems ???Ear nose throat: No sore throat, postnasal drip, runny nose, Sneezing ???Cardiovascular: No chest pain, no shortness of breath, no dyspnea on exertion, no PND, no orthopnea, no irregular pulse ???Respiratory: No chronic cough, no hemoptysis, no sputum, no wheezing ???GI, no diarrhea, no constipation no blood in the stools, no pain associated with eating, no indigestion ???Genitourinary: No painful urination no hesitancy no blood in the urine ???Musculoskeletal, + bilateral hand pain ,no limitations to walking and running, no joint deformity,no chronic back pain, no noise with joint movement ???Integumentary, no new skin rash. No new changes in skin moles ???Neurological: No history of seizures, memory loss, No language dysfunction, No inability to concentrate, no localized weakness, no sensation loss, no confusion ???Psychiatric: No depression, no suicidal thoughts, no anxiety ???Endocrine: No polyuria no polyphagia or polydipsia, no heat intolerance no cold intolerance ???Hematological: No easy bruising or Lymph node swelling. * Medical History:?? * Medications:??Taking Eliquis 5 MG Tablet TAKE 1 TABLET BY MOUTH TWICE DAILY , Taking Losartan Potassium 25 MG Tablet TAKE 1 TABLET BY MOUTH EVERY DAY , Taking Pantoprazole Sodium 40 MG Tablet Delayed Release TAKE 1 TABLET BY MOUTH EVERY DAY , Taking Sildenafil Citrate 100 MG Tablet 1 tablet as needed for sex Orally Once a day , Taking Albuterol Sulfate HFA 108 (90 Base) MCG/ACT Aerosol Solution 1-2 puff as needed for sob Inhalation every 6 hrs , Taking Metoprolol Tartrate 50 MG Tablet 1 tablet with food Orally Twice a day , Taking Tamsulosin HCl 0.4 MG Capsule TAKE 1 CAPSULE BY MOUTH EVERY DAY , Taking Montelukast Sodium 10 MG Tablet TAKE 1 TABLET BY MOUTH EVERY EVENING , Taking Atorvastatin Calcium 40 MG Tablet TAKE 1 TABLET BY MOUTH EVERY DAY , Taking Digoxin 125 MCG Tablet TAKE 1 TABLET BY MOUTH EVERY DAY , Taking Breo Ellipta 100-25 MCG/INH Aerosol Powder Breath Activated 1 Puff inhalation once daily , Notes to Pharmacist: PRN, Unknown traMADol HCl 50 MG Tablet 1 tablet as needed Orally twice a day , Notes to Pharmacist: PRN, Unknown Gabapentin 300 MG Capsule TAKE 1 CAPSULE BY MOUTH EVERY DAY AT BEDTIME Objective: * Examination: ?General Examination: ?Unable to perform. Assessment: * Assessment: 1.??Paroxysmal atrial fibril lation - I48.0 (Primary)??2.??Heart failure, unspecified - I50.9??3.??Thrombocytopenia - D69.6??4.??Hand pain, left - M79.642??5.??Hand pain, right - M79.641??6.??Erythrocytosis - D75.1??7.??Mixed hyperlipidemia - E78.2??8.??Essential hypertension - I10?? Emir is a pleasant 74-ye ar-old medically complex male who presents via telehealth in regards to his abnormal lab results that were ordered by , a hand surgeon. #vascular surgery note from [facility]: Date of service 08/12/2020, plan stated he is a non-smoker he is on aspirin and apixaban as well as a statin. There has been no progression of the carotid plaque or symptoms, based on imaging end-diastolic velocity appears less than 80%. 11/03/2021 vascular note states, continue medical therapy, asymptomatic moderate right carotid stenosis, recommendation was to repeat scan in 1 year. At follow-up question why patient did not choose to follow-up with vascular. Patient would benefit from a repeat scan to assess patency of bilateral carotid arteries #Last hematology note: Patient was last seen by [facility] hematology on 07/30/2019, this states that the patient was hospitalized in April 2019 with sudden onset left foot pain with diminished pulses, patient was on Pradaxa at that time. Presented with a hemoglobin of 18.1 and hematocrit of 55.8, heparin drip was initiated and the patient went to the OR for surgical management. At this time testing during this hospitalization revealed an elevated erythropoietin level, negative JAK2 mutation and negative hypercoagulable panel. Imaging did not show hepatosplenomegaly, and the patient was discharged on warfarin but switched to apixaban. #Secondary erythrocytosis: Note from 2019 hematology suggests that this erythrocytosis is secondary to extensive smoking and suspected sleep apnea. #CBC conducted on 04/22/2024 demonstrated a red blood cell count of 6.14, H&H values of 18.9 and 57.6. Additionally platelet count demonstrated a decrease with a value of 50. Patient aware of these concerning findings at this time, and is in agreement to see hematology. Hematology referral will be placed. #Elevated rheumatoid factor: Rheumatoid factor ordered on 04/22/2024 demonstrated a value of 165, referral placed for rheumatology at this time. #Chronic A-fib on anticoagulation: Eliquis 5 mg p.o. twice daily on digoxin. Dig level should be obtained for follow-up visit in July. #Essential hypertension: Continue taking losartan, will reevaluate at the patient's follow-up. #Chronic tobacco use: Will discuss tobacco cessation at the follow-up visit, patient does admit to smoking daily. #Peripheral vascular disease: Consider referral to vascular surgery if the patient has any complaints about leg pain #Hyperlipidemia: Continue atorvastatin 40 mg tablets All questions have been answered to patient's satisfaction. Patient verbalized understanding of diagnosis and treatments explained. Advised to call sooner prior to next visit it any questions/concerns arise. Case discussed with Anna ALBA who reviewed the assessment and plan. Chart, medications, labs, vital signs reviewed. Dictation was accomplished with the use of Jew[employer] voice recognition software, which is prone to medical misidentifications and grammatical errors. This are unintentional and the practitioner does try to identify and correct these, but some could still be present. Please do not hesitate to contact practitioner for clarification. Plan: * Treatment: * Images: Billing Information: * Visit Code:?? 73224 Office Visit, Est Pt., Level 4. Modifiers: GT * Procedure Codes:?? * Sign off status: Completed true * Provider:??THANIA BAILEY PA-C Date:??05/15 History and Physical Notes * HPI (History of Present Illness) Category Sub-Category Detail Notes Category Not es Constitutional Emir is a pleasant 74-year-old complex male, with a past medical history significant for atrial fibrillation on anticoagulation, hypertension, hyperlipidemia, GERD, asthma, heart failure, prediabetes, obesity, PVD, nicotine abuse who presents via telehealth in regards to lab work that was ordered by a referring physician. Patient was seen recently by Dr. Patricio, who works in hand surgery through [facility]. Patient CBC demonstrated a red blood cell count of 6.14, H&H 18.9 and 57.6 as well as a platelet count of 50. His previous CBC demonstrated an red blood cell count of 6.17, hemoglobin and hematocrit of 19.6 and 59.3 as well as a platelet count of 70. Due to the platelet count decreasing by 20 at this time patient agrees to be seen by hematology for his chronic thrombocytopenia. Additionally the patient's Lyme panel notable for an abnormal IgG panel, as well as a rheumatoid factor with a value of 165. At this time the patient is in agreement to see rheumatology, for further evaluation of his consistent bilateral hand pain. Examination Category Sub-Category Detail Notes Category Not es General Examination Unable t o perform
--- OUTSIDE RECORDS SUMMARY | 2024-07-09 14:04 | XMS_ITS | Patient Health Record ---
Author Organization [facility] Address [address] [place] [address] Care Team Providers Care Houseman Name Role Phone Guanakito Reeder Primary Care Provider Sujit Abdul Unavailable [phone] Vaibhav Gordon Unavailable [phone] Allergies No Known Allergies Reason For Referral No Information Medications Medication SIG (Take, Route, Frequency, Duration) Notes Start Date End Date Status Vitamin D3 1999 [place] A [place] Atorvastatin Calcium 40 MG 1 tablet Oral ly Once a day for 30 day(s) Active Montelukast Sodium 10 MG 1 tablet Orally Once a day for 30 day(s) Active Acetaminophen 2 capsules at bedtime Active Probiotic Active Losartan Potassium 25 MG 1 tablet Orally Once a day for 30 day(s) Active Metoprolol Succinate ER 25 MG 1 tablet Orally Once a day for 30 day(s) Active Eliquis 5 MG Orally Active Furosemide 20 MG as directed Orally Active Digoxin 125 MCG Orally Acti ve Doxycycline Calcium Active Amiodarone HCl 200 MG 1 tablet Orally On ce a day Active Tamsulosin HCl Activ e Aspirin 81 MG 1 tablet Orally Once a day for 30 day(s) Active Immunizations Vaccine Route Administration Date Status Comme nts COVID-19 Pfizer BioNTech Vaccine Unknown 03/30/2021 Administered 08/13/20, 09/03/20 Social History Tobacco Use: Social History Observation Description Date Details (start date - stop date) Current Smoker NA - NA Tobacco Use/Smoking Question Answer Notes Are you a: current smoker How many cigarettes a day do you smoke? - Additional Findings: Tobacco Non-User Current no n-smoker Alcohol Screen Question Answer Notes Did you have a drink containing alcohol in the p ast year? No Points 0 Interpretation Negative Tobacco use other than smoking: Question Answer Notes Are you an other tobacco user? No Problems Problem Type SNOMED Code ICD Code Onset Dates Problem Status W/U Status Risk Notes Problem Atherosclerosis of yuhaaviatam arteries of the extremities ([id number]) Atherosclerosis of yuhaaviatam artery of both lower extremities, with unspecified presence of clinical manifestation (I70.203) Active confirmed Q7(A), Q8(2B), Q9(1B,2 C) Vital Signs Height 5ft 10 in in 05/05/2024 Weight 260 lbs 05/05/2024 BMI 37.3 kg/m2 05/05/2024 Procedures Procedure Date Ordered Date Performed Result Body Sit e , J0702- INJECT or DRAI N, JOINT/BURSA 11/09/2023 N/A [id number] NAIL, 6 OR MORE 05/05/2024 N/A 42924-QHID SKIN LESIONS, OVER 4 05/05/2024 N/A Encounters Encounter Location Date Provider Diagnosis [address] [address] 08/10/2023 Vaibhav Grodon Pain in left foot M79.672 ; Pain in right foot M79.671 ; Ingrowing nail L60.0 ; Primary osteoarthritis, right ankle and foot M19.071 ; Tinea unguium B35.1 ; Pain in right toe(s) M79.674 ; Pain in left toe(s) M79.675 ; Other hammer toe(s) (acquired), left foot M20.42 and Atherosclerosis of artery of both lower extremities I70.[address] [address] 11/09/2023 Vaibhav Gordon Pain in left foot M79.672 ; Pain in right foot M79.671 ; Ingrowing nail L60.0 ; Primary osteoarthritis, right ankle and foot M19.071 ; Tinea unguium B35.1 ; Pain in right toe(s) M79.674 ; Pain in left toe(s) M79.675 ; Other hammer toe(s) (acquired), left foot M20.42 and Atherosclerosis of artery of both lower extremities I70.[address] [place] [address] 02/08/2024 Vaibhav Gordon Pain in left foot M79.672 ; Pain in right foot M79.671 ; Ingrowing nail L60.0 ; Primary osteoarthritis, right ankle and foot M19.071 ; Tinea unguium B35.1 ; Pain in right toe(s) M79.674 ; Pain in left toe(s) M79.675 ; Other hammer toe(s) (acquired), left foot M20.42 and Atherosclerosis of artery of both lower extremities I70.[address] [address] 05/05/2024 Sujit Main Atherosclerosis of yuhaaviatam artery of both lower extremities, with unspecified presence of clinical manifestation I70.203 ; Tinea unguium B35.1 ; Pain in right toe(s) M79.674 and Pain in left toe(s) M79.[address] [facility] [address] 05/05/2024 Sujit Main Assessments Encounter Date Diagnosis (ICD Code) Assessment Notes Treatment Notes Treatment Clinical Notes Section Notes 08/10/2023 Pain in left foot (ICD-10 - M79.672) 11/09/2023 Pain in left foot (ICD-10 - M79.672) 02/08/2024 Pain in left foot (ICD-10 - M79.672) 05/05/2024 Atherosclerosis of yuhaaviatam artery of both lower extremities, with unspecified presence of clinical manifestation (ICD-10 - I70.203) Q7(A), Q8(2B), Q9(1B,2C) 05/05/2024 Tinea unguium (ICD-10 - B35.1) 02/08/2024 Pain in right foot (ICD-10 - M79.671) 11/09/2023 Pain in right foot (ICD-10 - M79.671) 08/10/2023 Pain in right foot (ICD-10 - M79.671) 08/10/2023 Ingrowing nail (ICD-10 - L60.0) 11/09/2023 Ingrowing nail (ICD-10 - L60.0) 08/10/2023 Primary osteoarthritis, right ankle and foot (ICD-10 - M19.071) 02/08/2024 Ingrowing nail (ICD-10 - L60.0) 05/05/2024 Pain in right toe(s) (ICD-10 - M79.674) 02/08/2024 Primary osteoarthritis, right ankle and foot (ICD-10 - M19.071) 05/05/2024 Pain in left toe(s) (ICD-10 - M79.675) 02/08/2024 Tinea unguium (ICD-10 - B35.1) 11/09/2023 Primary osteoarthritis, right ankle and foot (ICD-10 - M19.071) 08/10/2023 Tinea unguium (ICD-10 - B35.1) 08/10/2023 Pain in right toe(s) (ICD-10 - M79.674) 02/08/2024 Pain in right toe(s) (ICD-10 - M79.674) 11/09/2023 Tinea unguium (ICD-10 - B35.1) 11/09/2023 Pain in right toe(s) (ICD-10 - M79.674) 02/08/2024 Pain in left toe(s) (ICD-10 - M79.675) 08/10/2023 Pain in left toe(s) (ICD-10 - M79.675) 11/09/2023 Pain in left toe(s) (ICD-10 - M79.675) 08/10/2023 Other hammer toe(s) (acquired), left foot (ICD-10 - M20.42) 02/08/2024 Other hammer toe(s) (acquired), left foot (ICD-10 - M20.42) 02/08/2024 Atherosclerosis of artery of both lower extremities (ICD-10 - I70.203) 08/10/2023 Atherosclerosis of artery of both lower extremities (ICD-10 - I70.203) 11/09/2023 Other hammer toe(s) (acquired), left foot (ICD-10 - M20.42) 11/09/2023 Atherosclerosis of artery of both lower extremities (ICD-10 - I70.203) Plan Of Treatment Pending Test Test Name Order Date X ray : Foot, left 3V 07/22/2021 [id number] NAIL, 6 OR MORE 05/05/2024, J0702- INJECT or DRAIN, JOINT/BUR SA 05/11/2023, J0702- INJECT or DRAIN, JOINT/BUR SA 11/09/2023, J0702- INJECT or DRAIN, JOINT/BUR SA 11/04/2021, J0702- INJECT or DRAIN, JOINT/BUR SA 07/05/2021 [id number] SKIN LESIONS, OVER 4 05/05/20 24 25100-[id number] SKIN LESIONS, 2 TO 4 02/03/20 X ray : Ankle, right 3V 11/25/2019 Next Appt Details Provider Name:Sujit Main , 08/13/2024 01:00:00 PM, [address] [facility], [address], [place], [address], Insurance Providers Payer Name Payer Address Payer Phone Subscriber Number Group Number Insured Name Patient Relationship to Insured Coverage Start Date Coverage End Date Medicare National Govt [employer] [address] [place] [address] [id number] Willie Morrison Self - patient is the insured [employer] [address] [place] [address] [id number] Willie Morrison Self - patient is the insured Medical (General) History Medical History History ICD Code Arthritis Back,Hip,and Knee pain CAD (Cholesterol) Heart disease Vascular phlebitis (clots) Chicken pox Transfusions AFib 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
--- OUTSIDE RECORDS SUMMARY | 2024-07-09 14:04 | XMS_ITS ---
Author Organization [facility] Address [address] [place] [address] Care Team Providers Care Manager Project Management Name Role Phone Guanakito Reeder Primary Care Provider Unavailnaomi wade Sujit Main Unavailable [phone] REASON FOR VISIT At Risk Footcare, Painful Nail(s) aggravated by shoes and causing difficulty standing/walking. Medications Medication SIG (Take, Route, Frequency, Duration) Notes Start Date End Date Status Vitamin D3 1999 UT A ctive Tamsulosin HCl Activ e Montelukast Sodium 10 MG 1 tablet Orally Once a day for 30 day(s) Active Probiotic Active Metoprolol Succinate ER 25 MG 1 tablet Orally Once a day for 30 day(s) Active Losartan Potassium 25 MG 1 tablet Orally Once a day for 30 day(s) Active Eliquis 5 MG Orally Active Furosemide 20 MG as directed Orally Active Digoxin 125 MCG Orally Acti ve Doxycycline Calcium Active Atorvastatin Calcium 40 MG 1 tablet Oral ly Once a day for 30 day(s) Active Amiodarone HCl 200 MG 1 tablet Orally On ce a day Active Aspirin 81 MG 1 tablet Orally Once a day for 30 day(s) Active Acetaminophen 2 capsules at bedtime Active Social History Tobacco Use: Social History [...] W/U Status Risk Notes Problem Atherosclerosis of [place] arteries of the extremities ([id number]) Atherosclerosis of [place] artery of both lower extremities, with unspecified presence of clinical manifestation (I70.203) Active confirmed Q7(A), Q8(2B), Q9(1B,2 C) Vital Signs Height 5ft 10 in in 05/05/2024 Weight 260 lbs 05/05/2024 BMI 37.3 kg/m2 05/05/2024 Procedures Procedure Date Ordered Date Performed Result Body Sit e 43585-YLRLFUD NAIL, 6 OR MORE 05/05/2024 N/A 51092-WSDE SKIN LESIONS, OVER 4 05/05/2024 N/A Encounters Encounter Location Date Provider Diagnosis [facility] [place] [address] [place] [phone] 05/05/2024 Sujit Main Atherosclerosis of [place] artery of both lower extremities, with unspecified presence of clinical manifestation I70.203 ; Tinea unguium B35.1 ; Pain in right toe(s) M79.674 and Pain in left toe(s) M79.675 Assessments Encounter Date Diagnosis (ICD Code) Assessment Notes Treatment Notes Treatment Clinical Notes Section Notes 05/05/2024 Atherosclerosis of [place] artery of both lower extremities, with unspecified presence of clinical manifestation (ICD-10 - I70.203) Q7(A), Q8(2B), Q9(1B,2C) 05/05/2024 Tinea unguium (ICD-10 - B35.1) 05/05/2024 Pain in right toe(s) (ICD-10 - M79.674) 05/05/2024 Pain in left toe(s) (ICD-10 - M79.675) Plan Of Treatment Pending Test Test Name Order Date 42026-QVBQOPJ NAIL, 6 OR MORE 05/05/2024 47749-GDXD SKIN LESIONS, OVER 4 05/05/20 24 Next Appt Details Follow Up: prn, Reason: Provider Name:Sujit Main , 08/13/2024 01:00:00 PM, [address] [facility], [address] [facility], [place], [address], Procedure Notes * Category Sub-Category Detail Notes Debride Nail 6-10 Nail debridement Performance o f this nail treatment by a nonprofessional would put this patients foot and overall health at risk. Therefore, debridement to affected nail(s), as described in exam, was performed extensively to reduce/remove overall nail length, girth, thickness, subungual debris, and necrotic tissue, by manual and/or electrical means through the use of a nail nipper and/or dremel-type spice grinder, to a more viable healthy nail plate or bed tissue 6-10 nails in total. Silver nitrate was used for any petechial bleeding as necessary. Definitive antifungal treatment options, both pharmaceutical and surgical, have been reviewed and discussed with the patient. The patient solely prefers the use of intermittent/as needed professional debridement services for their nail condition and understands the need for additional periodic treatments to maintain effectiveness in symptomatic relief - 79698 Keratoma Treatment Parring or Cutting o f Benign Hyperkeratotic Lesion(s) (-57) More than 4 Lesions - The Benign hyperkeratotic lesions, ( 6) in total, locations as stated and described in exam, were pared, and/or cut utilizing a sterile 15 blade, tissue nippers, and/or power dremel instrumentation - 29056, Q8 Progress Notes * Willie HENDERSON LDOB:[birth year] (74 yo M)Acc No.[id number]:05/05/2024 Progress Note Patient:?Willie HENDERSON Provider:?Sujit Main DPM :1950???Age:74 Y???Sex:Male Antonino e:05/05/2024 Address:[address] [place], [place] [id number] Pcp:Guanakito Reeder Subjective: * Chief Complaints: * ???At Risk FootcarePainful N ail(s) aggravated by shoes and causing difficulty standing/walking. * HPI: ???At Risk footcare:?Pt States Last PCP Visit:?Date?04/14/2024 * ROS:?General/Constitutional:?Nausea?denies.?Vomiting?denies.?Hunger Thirst?denies.?Loss appetite?denies.?Chills?denies.?Fatigue?denies.?Fever?denies.?Night Sweats?denies.?Unexplained weight loss?denies.?Unexplained weight gain?denies.?HEENTM:?Dentures?denies.?Dizziness?denies.?Glasses/contacts?denies.?Retinopathy?de nies.?Blurred/double vision?denies.?TMJ?denies.?Discharge/drainage?denies.?Implants?denies.?Sore throat?denies.?Dental implants?denies.?Hard of hearing ?admits.?Difficulty chewing/swallowing/speaking?denies.?Nose bleeds?denies.?Sore mouth?denies.?Respiratory:?On Oxygen?denies.?Pneumonia/pleurisy?denies.?Bronchitis?denies.?Emphysema?denies.?C oughing?denies.?Cough blood?denies.?Shortness of breath?denies.?Wheezing?denies.?Cardiovascular:?Pacemaker?denies.?MVP?denies.?WPW?denies.?CHF?denies.?Heart attack?denies.?Septal defect?denies.?Rapid beat?denies.?Chest pain ?denies.?Atrial Fib.?admits.?Murmur/Palpitations?denies.?Gastrointestinal:?Hemorrhoids?denies.?Stomach/Abdominal pain?denies.?Dark blood stool?denies.?Irritable bowel ?denies.?Constipation?denies.?Diarrhea?denies.?Hematology:?Swelling?denies.?Clots?denies.?Varicose Veins?denies.?Bruising?denies.?Bleeding problem?denies.?Genitourinary:?Blood urine?denies.?Frequent/Painfu/urination/bladder control?denies.?Kidney stones?denies.?Infection (UTI)?denies.?Nephropathy?denies.?sex trans dis (STD)?denies.?Prostate?denies.?Musculoskeletal:?Hammertoes?denies.?Bunions?denies.?Back Pain?denies.?Muscle Cramps/ Resting?denies.?Muscle cramps / walking?denies.?Generalized aches and pains?denies.?Weakness?denies.?Integ.:?Brown?denies.?Scars?denies.?Corns/calluses?admits.?Ingrown nails?admits.?Painful nails?admits.?Open Sores?denies.?Rashes?denies.?Neurologic:?Difficulty sleeping?denies.?Brain disorder?denies.?Numbness?denies.?Balance trouble?denies.?Confusion?denies.?Fainting/blackouts?denies.?Tingling?denies.?Tr emors?denies.? [...] than smoking?Are you an other tobacco user??No ???Drugs/Alcohol:?Drugs?Have you used drugs other than those for medical reasons in the past 12 months??No ?Alcohol Screen?Did you have a drink containing alcohol in the past year??No ?Points?0 ?Interpretation?Negative ???Miscellaneous:?Caffeine: yes, frequency:, 1-2 cups per day. ?Exercise: yes. ?Marital status: . ?Occupation: [employer]. * Medications:?TakingAcetamino phen 2 capsules at bedtime Amiodarone HCl 200 MG Tablet 1 tablet Orally Once a day Aspirin 81 MG Tablet Chewable 1 tablet Orally Once a day Atorvastatin Calcium 40 MG Tablet 1 tablet Orally Once a day Digoxin 125 MCG Tablet Orally Doxycycline Calcium Eliquis 5 MG Tablet Orally Furosemide 20 MG Tablet as directed Orally Losartan Potassium 25 MG Tablet 1 tablet Orally Once a day Metoprolol Succinate ER 25 MG Tablet Extended Release 24 Hour 1 tablet Orally Once a day Montelukast Sodium 10 MG Tablet 1 tablet Orally Once a day Probiotic Tamsulosin HCl Vitamin D3 1999 Medication List reviewed and reconciled with the patientTaking Acetaminophen 2 capsules at bedtime Taking Amiodarone HCl 200 MG Tablet 1 tablet Orally Once a day Taking Aspirin 81 MG Tablet Chewable 1 tablet Orally Once a day Taking Atorvastatin Calcium 40 MG Tablet 1 tablet Orally Once a day Taking Digoxin 125 MCG Tablet Orally Taking Doxycycline Calcium Taking Eliquis 5 MG Tablet Orally Taking Furosemide 20 MG Tablet as directed Orally Taking Losartan Potassium 25 MG Tablet 1 tablet Orally Once a day Taking Metoprolol Succinate ER 25 MG Tablet Extended Release 24 Hour 1 tablet Orally Once a day Taking Montelukast Sodium 10 MG Tablet 1 tablet Orally Once a day Taking Probiotic Taking Tamsulosin HCl Taking Vitamin D3 1999 Medication List reviewed and reconciled with the patient * Allergies:?yes[Allergies Truong ified] Objective: * Vitals:?Ht:5ft 10 in, Wt:260 , BMI:37.3, Shoe size:12, Ht-cm: 177.8 cm, Wt-k.93 kg. * Examination: ???Vascular: ?DP PULSES(B):? 0/4, B/L.?PT PULSES(B):? 0/4, B/L.?CAPILLARY FILL TIME:? delayed, all digits, B/L.?TROPHIC CONDITION-TEXTURE/ELASTICITY/TURGOR/HAIR GROWTH(B):? decreased, fragile, thin, shiny skin, with sparse to absent hair growth, B/L.?TEMPERTURE GRADIENT(C):? decreased, cool to cool, proximal to distal, B/L.?PIGMENTATION:?cyanotic, B/L.?EDEMA(C):?1/4, non-pitting, without aching pain, Leg(s), Ankle(s), Foot, B/L.?CLAUDICATION(C):?denies, B/L.?REST PAIN:?denies, B/L.?PARESTHESIA(C):?absent, B/L.?BURNING(C):?absent, B/L.?Nails: ?NAILS are:? Elongated, overgrown, dystrophic, lytic, greater than 3mm thick, discolored and friable with crumbly malodorous subungual debris, with pain on palpation,1-5 B/L.?Dermatologic: ?SKIN FINDINGS:?Skin exam reveals Keratotic lesion(s) located at, SUB MTH (s), 1, B/L, SUB MTH (s), 5, B/L, Plantar Heel(s), B/L.?Orthopedic: ?MUSCLE STRENGTH:?5/5 all groups in a symmetrical fashion, B/L.?Neurological: ?SENSORY:?Neurological exam reveals intact sensorium, pain sensation normal, vibration sensation intact, pinprick sensation is normal in the lower extremities, Pt denies, anesthesia, burning, paresthesia, tingling, B/L.?General Examination: ?GENERAL APPEARANCE:?Reveals a pleasant, alert, well nourished, well- developed, well hydrated individual, who demonstrates proper attention to hygiene/body habitus, and is in no acute distress, Pt serves as own historian for office visit today.?ORIENTED:?person, place, and time.? Assessment: * Assessment: 1.?Atherosclerosis of [place] artery of both lower extremities, with unspecified presence of clinical manifestation - I70.203 (Primary)???Notes :Q7(A), Q8(2B), Q9(1B,2C)???2.?Tinea unguium - B35.1???3.?Pain in right toe(s) - M79.674???4.?Pain in left toe(s) - M79.675??? Plan: * Treatment: 2.?Tinea unguium?Procedure: 37091-KDIRTVC NAIL, 6 OR MORE * Procedures:?Debride Nail 6-10:?Nail debridement?Performance of this nail treatment by a nonprofessional would put this patients foot and overall health at risk. Therefore, debridement to affected nail(s), as described in exam, was performed extensively to reduce/remove overall nail length, girth, thickness, subungual debris, and necrotic tissue, by manual and/or electrical means through the use of a nail nipper and/or dremel-type spice grinder, to a more viable healthy nail plate or bed tissue 6-10 nails in total. Silver nitrate was used for any petechial bleeding as necessary. Definitive antifungal treatment options, both pharmaceutical and surgical, have been reviewed and discussed with the patient. The patient solely prefers the use of intermittent/as needed professional debridement services for their nail condition and understands the need for additional periodic treatments to maintain effectiveness in symptomatic relief - 17199.?Keratoma Treatment:?Parring or Cutting of Benign Hyperkeratotic Lesion(s)?(-57) More than 4 Lesions - The Benign hyperkeratotic lesions, ( 6) in total, locations as stated and described in exam, were pared, and/or cut utilizing a sterile 15 blade, tissue nippers, and/or power dremel instrumentation - 38497, Q8.? * Procedure Codes:?73020 DEBRI DE NAIL, 6 OR MORE, Modifiers: XS 75109 TRIM SKIN LESIONS, OVER 4, Modifiers: XS , Q8 * Preventive Medicine:? ??Counseling:?Tobacco use:?Type of Tobacco Use Cessation Counseling provided?Smoking effects education I gotta have something. My 2 years ago and I don't drink * Follow Up:?prn * Images: * Sign off status: Completed true * Provider:?Sujit Main DPM Date:?2023 Generated for Ayaka parrish/Kimberly/Sumaya on:?07/09/2024 02:04 PM EST History and Physical Notes * HPI (History of Present Illness) Category Sub-Category Detail Notes Category Not es At Risk footcare Pt States Last PCP Visit: Date: 4 Examination Category Sub-Category Detail Notes Category Not es Neurological SENSORY: Neurological exa m reveals intact sensorium, pain sensation normal, vibration sensation intact, pinprick sensation is normal in the lower extremities, Pt denies, anesthesia, burning, paresthesia, tingling, B/L Dermatologic SKIN FINDINGS: Skin exam reveal s Keratotic lesion(s) located at, SUB MTH (s), 1, B/L, SUB MTH (s), 5, B/L, Plantar Heel(s), B/L Orthopedic MUSCLE STRENGTH: 5/5 all groups in a symmetrical fashion, B/L General Examination GENERAL APPEARANCE: Reveals a pleasant, alert, well nourished, well-developed, well hydrated individual, who demonstrates proper attention to hygiene/body habitus, and is in no acute distress, Pt serves as own historian for office visit today ORIENTED: person, place, and t rdyer Vascular DP PULSES (B): 0/4, B/L PT PULSES (B): 0/4, B/L CAPILLARY FILL TIME: delayed, all digits , B/L TEMPERTURE GRADIENT (C): decreased, cool to cool, proximal to distal, B/L TROPHIC CONDITION-TEXTURE/ELASTICITY/TURGOR/HAIR GROWTH (B): decreased, fragile, thin, shiny skin, wi th sparse to absent hair growth, B/L EDEMA (C): 1/4, non-pitting, wi thout aching pain, Leg(s), Ankle(s), Foot, B/L CLAUDICATION (C): denies, B/L REST PAIN: denies, B/L PIGMENTATION: cyanotic, B/L PARESTHESIA (C): absent, B/L BURNING (C): absent, B/L Nails NAILS are: Elongated, overg rown, dystrophic, lytic, greater than 3mm thick, discolored and friable with crumbly malodorous subungual debris, with pain on palpation,1-5 B/L
--- OUTSIDE RECORDS SUMMARY | 2024-07-09 14:05 | XMS_ITS ---
Author Organization [facility] Address [address] [place] [phone] Care Team Providers Care Direct Marketing Coordinator Name Role Phone Guanakito Reeder Primary Care Provider Sujit Abdul Unavailable [phone] REASON FOR VISIT ns 1pm 05/05 Encounters Encounter Location Date Provider Diagnosis [address] [phone] 05/05/2024 Sujit Main Plan Of Treatment Next Appt Details Provider Name:Sujit Main , 08/13/2024 01:00:00 PM, [address] [facility], [address], [phone], Progress Notes * Willie HENDERSON LDOB:[birth year] (74 yo M)Acc No.[id number]:05/05/2024 Patient:?Willie HENDERSON :1950???Age:74 Y???Sex:Male Address:[address] [place] [address], [phone] * true * Date:? Generated for Ayaka parrish/Kimberly/eTransmitting on:?07/09/2024 02:04 PM EST
--- OUTSIDE RECORDS SUMMARY | 2024-07-09 14:05 | XMS_ITS ---
Author Organization [facility] Address [address] [place] [address] Care Team Providers Care Pick Up Driver Name Role Phone BRIDGET BENITEZ Primary Care Provider [phone] THANIA BAILEY Unavailable [phone] REASON FOR VISIT CCM Encounters Encounter Location Date Provider Diagnosis [facility] [address] [address] 05/23/2024 BRIDGET BENITEZ PLAN OF TREATMENT Next Appt Details Provider Name:THANIA BAILEY, 01:00:00 PM, [address], [place], [address], Progress Notes * ISABELLA HENDERSON LDOB:[birth year] (74 yo M)Acc No.[id number]:05/23/2024 Patient:??ISABELLA HENDERSON :1950?Age:74 Y?Sex:Kristen racheal Address:[address], [place] [address] * true * Date:??
== END 2024-07-09 11:36 | disposition home or self-care (01) ==
LOC: HO.BBR 11:35
PROVIDERS: Visit Provider Physician Assistant Medical
DX: D75.1 Secondary polycythemia (principal)
CPT/HCPCS: 85014; 85018; 99195

== ENCOUNTER 2024-10-09 11:32 | Outpatient (REF) | payer MEDICARE, SELFPAY ==
--- OUTSIDE RECORDS SUMMARY | 2024-10-09 13:41 | XMS_ITS ---
Author Organization [facility] [place] Address [address] [place] [address] Care Team Providers Care [employer] Teacher Name Role Phone Reeder, Husseinkm Primary Care Provider Sujit Abdul Unavailable [phone] Allergies No Known Allergies REASON FOR VISIT At Risk Footcare, Painful Nail(s) aggravated by shoes and causing difficulty standing/walking, Toe Irritation Medications Medication SIG (Take, Route, Frequency, Duration) Notes Start Date End Date Status Montelukast Sodium 10 MG 1 tablet Orally Once a day for 30 day(s) Active Probiotic Active Tamsulosin HCl Activ e Vitamin D3 2000 UT A ctive metFORMIN HCl ER 500 MG TAKE 2 TABLETS B Y MOUTH DAILY IN THE EVENING Oral for 90 Days Active Eliquis 5 MG Orally Active Furosemide 20 MG as directed Orally Active Losartan Potassium 25 MG 1 tablet Orally Once a day for 30 day(s) Active Extra Depth Orthopedic Shoes, (1) Pair With (3) Pair Custom Heat Molded Multidensity Innersoles Dx: NIDDM/PVD(E11.51), Hammertoe Foot Deformity(M20.41,M20.42), Preulcerative Skin Lesion(s)(L85.1) Wear Daily for 365 days 08/13/2024 Active Metoprolol Succinate ER 25 MG 1 tablet Orally Once a day for 30 day(s) Active Amiodarone HCl 200 MG 1 tablet Orally Once a day Active Aspirin 81 MG 1 tablet Orally Once a day for 30 day(s) Active Atorvastatin Calcium 40 MG 1 tablet Oral ly Once a day for 30 day(s) Active Digoxin 125 MCG Orally Acti ve Doxycycline Calcium Active Acetaminophen 2 capsules at bedtime Active Social History Tobacco Use: Social History Observation Description Date Details (start date - stop date) Current Smoker 08/18/2014 - NA Tobacco use other than smoking: Question Answer Notes Are you an other tobacco user? No Tobacco Control (Standard) Question Answer Notes Tobacco use: Current smoker When did you start smoking? 08/18/2014 How often do you smoke cigarettes? Every day How many cigarettes a day do you smoke? 6-10 How soon after you wake up d o you smoke your first cigarette? After 60 minutes Are you interested in quitting? Not ready to obed t Additional Findings: Tobacco user Modera te cigarette smoker (10-19 cigs/day) AUDIT-C (Standard) Question Answer Notes Did you have a drink contain ing alcohol in the past year? Yes How often did you have a dri nk containing alcohol in the past year? Monthly or less (1 point) How many drinks did you have on a typical day when you were drinking in the past year? 1 or 2 drinks (0 point) How often did you have six o r more drinks on one occasion in the past year? Less than monthly (1 point) Points 2 Interpretation Negative Problems Problem Type SNOMED Code ICD Code Onset Dates Problem Status W/U Status Risk Notes Problem Type 2 diabetes mellitus with peripheral angiopathy (331286487) Type 2 diabetes mellitus with diabetic peripheral angiopathy without gangrene (E11.51) Active confirmed Q7(A), Q8(2B), Q9(1B,2C) Problem Acquired hammer toe of right foot (7812917767299 105) Other hammer toe(s) (acquired), right foot (M20.41) Active confirmed Problem Acquired hammer toe of left foot (8095642930470 103) Other hammer toe(s) (acquired), left foot (M20.42) Active confirmed Vital Signs Height 5ft 10in in 08/13/2024 Weight 260 lbs 08/13/2024 BMI 37.3 kg/m2 08/13/2024 Blood pressure systolic 133 mm Hg 08/14/19 25 Blood pressure diastolic 65 mm Hg 025 Procedures Procedure Date Ordered Date Performed Result Body Sit e 65068-PKJDIFN NAIL, 6 OR MORE 08/13/2024 N/A 26374-SDUD SKIN LESIONS, OVER 4 08/13/2024 N/A Encounters Encounter Location Date Provider Diagnosis [facility] [place] [address] [place] [address] 08/13/2024 Sujit Main Type 2 diabetes mellitus with diabetic peripheral angiopathy without gangrene E11.51 ; Tinea unguium B35.1 ; Pain in right toe(s) M79.674 ; Pain in left toe(s) M79.675 ; Other hammer toe(s) (acquired), left foot M20.42 and Other hammer toe(s) (acquired), right foot M20.41 Assessments Encounter Date Diagnosis (ICD Code) Assessment Notes Treatment Notes Treatment Clinical Notes Section Notes 08/13/2024 Type 2 diabetes mellitus with diabetic peripheral angiopathy without gangrene (ICD-10 - E11.51) Q7(A), Q8(2B), Q9(1B,2C) 08/13/2024 Tinea unguium (ICD-10 - B35.1) 08/13/2024 Pain in right toe(s) (ICD-10 - M79.674) 08/13/2024 Pain in left toe(s) (ICD-10 - M79.675) 08/13/2024 Other hammer toe(s) (acquired), left foot (ICD-10 - M20.42) 08/13/2024 Other hammer toe(s) (acquired), right foot (ICD-10 - M20.41) Patient Educated with: DIABETIC FOOT CARE INSTRUCTIONS.p df (DIABETIC FOOT CARE INSTRUCTIONS.p df) Plan Of Treatment Medication Medication Name Sig Start Date Stop Date Notes Extra Depth Orthopedic Shoes , (1) Pair With (3) Pair Custom Heat Molded Multidensity Innersoles Dx: NIDDM/PVD(E11.51), Hammertoe Foot Deformity(M20.41,M20.42), Preulcerative Skin Lesion(s)(L85.1) Wear Daily for 365 days 08/13/2024 Treatment Notes Assessment Notes Other hammer toe(s) (acquired), right fo ot Patient Educated with: DIABETIC FOOT CARE INSTRUCTIONS.pdf (DIABETIC FOOT CARE INSTRUCTIONS.pdf) Pending Test Test Name Order Date 01649-AIHRBRC NAIL, 6 OR MORE 08/13/2024 30468-VWMK SKIN LESIONS, OVER 4 08/14/19 Next Appt Details Follow Up: prn, Reason: Provider Name:uSjit Main , 11/13/2024 01:00:00 PM, [address] , [address], [place], [address], Procedure Notes * Category Sub-Category Detail Notes Debride Nail 6-10 Nail debridement Due to the cl inical pathology outlined in the exam findings, performance of this nail treatment is medically necessary as its management by an unskilled/untrained nonprofessional would put this patients foot and overall health at risk. Therefore, debridement to affected nail(s), as described in exam ( TA, T1, T2, T3, T4, T5, T6, T7, T8, T9 ), was performed exclusively by the physician of record to reduce/remove overall nail length, girth, thickness, subungual debris, and necrotic tissue, by manual and/or electrical means through the use of a nail nipper and/or dremel-type tool grinder set up operator gear, to a more viable healthy nail plate [...] to maintain effectiveness in symptomatic relief - 11150 Keratoma Treatment Parring or Cutting o f Benign Hyperkeratotic Lesion(s) (-57) More than 4 Lesions - Due to the at risk nature of the patients medical condition as documented in the exam findings, performance of this keratoderma treatment is medically necessary as its management by an unskilled/untrained nonprofessional would put this patients foot and overall health at risk. Therefore, the benign hyperkeratotic lesions, ( 6 ) in total, locations as stated and described in the exam ( SUB MTH (s), 1, B/L, SUB MTH (s), 5, B/L, Plantar Heel(s), B/L ), were pared, and/or cut utilizing a sterile 15 blade, tissue nippers, and/or power dremel instrumentation by the physician of record - 23147, Q8 Progress Notes * Willie HENDERSON LDOB:[birth year] (74 yo M)Acc No.[id number]:08/13/2024 Progress Note Patient:?Willie HENDERSON Provider:?Sujit Main DPM :1950???Age:74 Y???Sex:Male Antonino e:08/13/2024 Address:[address] [place], [place] [id number] Pcp:Guanakito Reeder Subjective: * Chief Complaints: * ???At Risk FootcarePainful N ail(s) aggravated by shoes and causing difficulty standing/walkingToe Irritation * HPI: ???At Risk footcare:?Pt States Last PCP Visit:?Date?07/16/2024 ???Toe pain:?Location:?B/L feet.?Duration:?several years.?Course:?worse.?Aggravated by:?shoes, any pressure.?Treatments:?change in shoes.? * ROS:?General/Constitutional:?Nausea?denies.?Vomiting?denies.?Hunger Thirst?denies.?Loss appetite?denies.?Chills?denies.?Fatigue?denies.?Fever?denies.?Night Sweats?denies.?Unexplained weight loss?denies.?Unexplained weight gain?denies.?HEENTM:?Dentures?denies.?Dizziness?denies.?Glasses/contacts?denies.?Retinopathy?den ies.?Blurred/double vision?denies.?TMJ?denies.?Discharge/drainage?denies.?Implants?denies.?Sore throat?denies.?Dental implants?denies.?Hard of hearing ?admits.?Difficulty chewing/swallowing/speaking?denies.?Nose bleeds?denies.?Sore mouth?denies.?Respiratory:?On O xygen?denies.?Pneumonia/pleurisy?denies.?Bronchitis?denies.?Emphysema?denies.?Co ughing?denies.?Cough blood?denies.?Shortness of breath?denies.?Wheezing?denies.?Cardiovascular:?Pacemaker?denies.?MVP?denies.?WPW?denies.?CHF?denies.?Heart attack?denies.?Septal defect?denies.?Rapid beat?denies.?Chest pain ?denies.?Atrial Fib.?admits.?Murmur/Palpitations?denies.?Gastrointestinal:?Hemorrhoids?denies.?Stomach/Abdominal pain?denies.?Dark blood stool?denies.?Irritable bowel ?denies.?Constipation?denies.?Diarrhea?denies.?Hematology:?Swelling?denies.?Clots?denies.?Varicose Veins?denies.?Bruising?denies.?Bleeding problem?denies.?Genitourinary:?Blood urine?denies.?Frequent/Painfu/urination/bladder control?denies.?Kidney stones?denies.?Infection (UTI)?denies.?Nephropathy?denies.?sex trans dis (STD)?denies.?Prostate?denies.?Musculoskeletal:?Hammertoes?admits.?Bunions?denies.?Back Pain?denies.?Muscle Cramps/ Resting?denies.?Muscle cramps / walking?denies.?Generalized aches and pains?denies.?Weakness?denies.?Integ.:?Brown?denies.?Scars?denies.?Corns/calluses?admits.?Ingrown nails?admits.?Painful nails?admits.?Open Sores?denies.?Rashes?denies.?Neurologic:?Difficulty sleeping?denies.?Brain disorder?denies.?Numbness?denies.?Balance t rouble?denies.?Confusion?denies.?Fainting/blackouts?denies.?Tingling?denies.?Kleber mors?denies.? * Medical History:? * Surgical History:?Blood clot 04/15/19Hematoma 04/16/19 * Hospitalization/Major Diagno stic Procedure:?[facility] Blood clot left leg 16 days 04/2019[facility]- diverticulitis 09/2021[facility]- chest xray 07/2023 * Family History:?Mother: dece ased, heart attack, poor circulation, diagnosed with Unspecified essential hypertension.?Father: , heart attack, poor circulation, diagnosed with Unspecified essential hypertension.?Spouse: alive.? * Social History:?Tobacco Use:?Tobacco use other than smoking?Are you an other tobacco user??No ?Tobacco Control (Standard)?Tobacco use:?Current smoker ?When did you start smoking??08/18/2014 ?How often do you smoke cigarettes??Every day ?How many cigarettes a day do you smoke??6-10 ?How soon after you wake up do you smoke your first cigarette??After 60 minutes ?Are you interested in quitting??Not ready to quit ?Additional Findings: Tobacco user?Moderate cigarette smoker (10-19 cigs/day) ???Drugs/Alcohol:?Drugs?Have you used drugs other than those for medical reasons in the past 12 months??No ???Miscellaneous:?Caffeine: yes, frequency:, 1-2 cups per day. ?Exercise: yes. ?Marital status: . ?Occupation: [employer]. ???Drug/Alcohol:?AUDIT-C (Standard)?Did you have a drink containing alcohol in the past year??Yes ?How often did you have a drink containing alcohol in the past year??Monthly or less (1 point) ?How many drinks did you have on a typical day when you were drinking in the past year??1 or 2 drinks (0 point) ?How often did you have six or more drinks on one occasion in the past year??Less than monthly (1 point) ?Points?2 ?Interpretation?Negative * Medications:?TakingAcetamino phen 2 capsules at bedtime [...] a day Probiotic Tamsulosin HCl Vitamin D3 2000 UT metFORMIN HCl ER 500 MG Tablet Extended Release 24 Hour TAKE 2 TABLETS BY MOUTH DAILY IN THE EVENING Oral Medication List reviewed and reconciled with the [...] Probiotic Taking Tamsulosin HCl Taking Vitamin D3 2000 UT Taking metFORMIN HCl ER 500 MG Tablet Extended Release 24 Hour TAKE 2 TABLETS BY MOUTH DAILY IN THE EVENING Oral Medication List reviewed and reconciled with the patient * Allergies:?N.K.D.A.yes[Aller gies Verified] Objective: * Vitals:?Ht: 5ft 10in, Wt:260 , BMI:37.3, Shoe size: 12, BP:133/65mm Hg, BS: not taken, Ht-cm: 177.8 cm, Wt-k.94 kg. * ???Past Orders: ???Lab:HEMOGLOBIN A1C (GLYCO HEMOGLOBIN) (Order Date - 03/07/2024) (Collection Date & Time - 03/10/2024 01:12 PM) ? Value Reference Range ?HEMOGLOBIN A1C % (HH) 7.0 * Examination: ???Ophthalmology Referral: ?DIABETES EYE EXAM?Procedure Performed:?Yes ?Date of Exam Performed?07/22/2024 ?Diabetic Retinopathy Screening:?Yes ?Retinal Screening Performed:?Yes ?Findings of Diabetic Eye Exam:?no retinopathy?Vascular: ?DP PULSES (B):? 0/4, B/L.?PT PULSES (B):? 0/4, B/L.?CAPILLARY FILL TIME:? delayed, all digits, B/L.?TROPHIC CONDITION-TEXTURE/ELASTICITY/TURGOR/HAIR GROWTH (B):? decreased, fragile, thin, shiny skin, with sparse to absent hair growth, B/L.?TEMPERTURE GRADIENT (C):? decreased, cool to cool, proximal to distal, B/L.?PIGMENTATION:?cyanotic, B/L.?EDEMA (C):?1/4, non-pitting, without aching pain, Leg(s), Ankle(s), Foot, B/L.?CLAUDICATION (C):?denies, B/L.?REST PAIN:?denies, B/L.?PARESTHESIA (C):?absent, B/L.?BURNING (C):?absent, B/L.?Nails: ?NAILS are:? Elongated, overgrown, dystrophic, lytic, greater than 3mm thick, discolored and friable with crumbly malodorous subungual debris, with pain on palpation, TA, T1, T2, T3, T4, T5, T6, T7, T8, T9.?Dermatologic: ?SKIN FINDINGS:?Skin exam reveals Keratotic lesion(s) located at, SUB MTH (s), 1, B/L, SUB MTH (s), 5, B/L, Plantar Heel(s), B/L.?Orthopedic: ?MUSCLE STRENGTH:?5/5 all groups in a symmetrical fashion, B/L.?FOOT MORPHOLOGY:?Pes Cavus structure, (-) Charcot collapse/destruction noted at MTJ.?DIGITAL DEFORMITIES:?Digital contracture, PIPJ, 2-5 B/L, incompl-reducible to push-up test, no over, nor underlapping,?there is?evidence of shoe producing skin irritation.?FOOTWEAR:?worn, non-supportive, shoe gear properties exacerbate patient's foot/toe deformity.?Neurological: ?SENSORY:?Neurological exam reveals intact sensorium, pain sensation normal, vibration sensation intact, pinprick sensation is normal in the lower extremities, 5.07 monofilament test performed at plantar aspects of 5 varied sites per foot shows sensation, normal, B/L, Pt denies, anesthesia, burning, paresthesia, tingling, B/L.?General Examination: ?GENERAL APPEARANCE:?Reveals a pleasant, alert, well nourished, well- developed, well hydrated individual, who demonstrates proper attention to hygiene/body habitus, and is in no acute distress, Pt serves as own historian for office visit today.?ORIENTED:?person, place, and time.?FOOT EXAM:?Lower Extremity Neurological Exam performed:?Yes Date ?Visual exam of foot performed:?Yes ?Date?08/13/2024 ?Footwear Evaluation?Footwear Evaluation performed:?Yes??? Assessment: * Assessment: 1.?Type 2 diabetes mellitus with diabetic peripheral angiopathy without gangrene - E11.51???Notes :Q7(A), Q8(2B), Q9(1B,2C)???2.?Tinea unguium - B35.1???3.?Pain in right toe(s) - M79.674???4.?Pain in left toe(s) - M79.675???5.?Other hammer toe(s) (acquired), left foot - M20.42???Specify :Chronic problem, Worse (4),Rx Management (4)???6.?Other hammer toe(s) (acquired), right foot - M20.41 (Primary)???Specify :Chronic problem, Worse (4),Rx Management (4)??? Plan: * Treatment: 2.?Type 2 diabetes mellitus with diabetic peripheral angiopathy without gangrene?Procedure: 43955-RMZP SKIN LESIONS, OVER 4 3.?Tinea unguium?Procedure: 73866-YNXAOIH NAIL, 6 OR MORE * Procedures:?Debride Nail 6-10:?Nail debridement?Due to the clinical pathology outlined in the exam findings, performance of this nail treatment is medically necessary as its management by an unskilled/untrained nonprofessional would put this patients foot and overall health at risk. Therefore, debridement to affected nail(s), as described in exam (??TA, T1, T2, T3, T4, T5, T6, T7, T8, T9?), was performed exclusively by the physician of record to reduce/remove overall nail length, girth, thickness, subungual debris, and necrotic tissue, by manual and/or electrical means through the use of a nail nipper and/or dremel-type tool grinder set up operator gear, to a more viable healthy nail plate or bed tissue 6- 10 nails in total. Silver nitrate was used for any petechial bleeding as necessary. Definitive antifungal treatment options, both pharmaceutical and surgical, have been reviewed and discussed with the patient. The patient solely prefers the use of intermittent/as needed professional debridement services for their nail condition and understands the need for additional periodic treatments to maintain effectiveness in symptomatic relief - 69996.?Keratoma Treatment:?Parring or Cutting of Benign Hyperkeratotic Lesion(s)?(-57) More than 4 Lesions - Due to the at risk nature of the patients medical condition as documented in the exam findings, performance of this keratoderma treatment is medically necessary as its management by an unskilled/untrained nonprofessional would put this patients foot and overall health at risk. Therefore, the benign hyperkeratotic lesions, ( 6 ) in total, locations as stated and described in the exam (??SUB MTH (s),?1,?B/L,?SUB MTH (s),?5,?B/L,?Plantar Heel(s),?B/L?), were pared, and/or cut utilizing a sterile 15 blade, tissue nippers, and/or power dremel instrumentation by the physician of record - 88669, Q8.? * Procedure Codes:?90047 DEBRI DE NAIL, 6 OR MORE, Modifiers: XS 92597 TRIM SKIN LESIONS, OVER 4, Modifiers: XS , Q8 * Preventive Medicine:? ??Counseling:?Tobacco use:?Patient counseled on the dangers of smoking and urged to quit:?08/13/2024 ?Discussion:?-14: Office or other outpatient visit for the evaluation and management of an established patient, which required a medically appropriate history and/or examination and MODERATE level of DECISION MAKING for: 1 OR MORE CHRONIC PROBLEM(S) THATS WORSENING, 2 STABLE CHRONIC PROBLEMS, A NEWLY DIAGNOSED PROBLEM WITH UNCERTAIN PROGNOSIS, AN ACUTE COMPLICATED INJURY WITH MULTIPLE TREATMENT OPTIONS, OR AN ACUTE PROBLEM WITH ACCOMPANYING SYSTEMIC SYMPTOMS, THAT POSE(S) A MODERATE RISK OF MORBIDITY. THIS CONDITION MAY ALSO INCLUDE RX DRUG MANAGEMENT, OR A DECISON FOR MINOR SURGERY. The visit on the day of the encounter encompassed interpreting the data and educating the patient as to the nature of their condition, treatment options available according to their individual PMH, meds, allergies, and overall health/living conditions, as well as any potential risks or complications that may occur from a failure to adhere to, and participate in, the recommended course of therapy. The discussion included a complete verbal, and/or written explanation of the examination results, any x-rays taken, the proposed diagnosis, and outline of the treatment plan. A schedule for future care needs was also explained. The patient verbalized an understanding of the instructions at this time and agreed to be an active participant in their treatment. If the patient should think of any questions or concerns after the visit, I have encouraged the patient to call the office.?Digital Surgery:?Digital surgery was discussed with the patient, We elected to try conservative treatment at the present time, due to the patients medical history and increased asssociated post-operative risks.?Digital Treatment:?HT- I explained to the patient the possible etiologies of Hammertoes, including genetics/foot type/shoegear/activity level/exercise routine and the risks/benefits of all the different treatment options for their pain including: No treatment at all, Rest, Ice, New/supportive/wider/deeper Shoegear, Digital Padding/Strapping/Taping/Bracing/Gel protective sleeves, Foot/Ankle AFO Bracing, Stretching exercises, Deep Tissue Massage, Arch support/shoe inserts with splay metatarsal padding, and Custom orthoses. I insisted that any digital devices be removed daily and not worn overnight for safety. The patient is to carefully examine the toes daily for any skin irritation while using any splinting or padding device. The advantages and disadvantages of each option were discussed and the patients questions re: shoegear, padding, custom vs prefabricated inserts, activity level, and consistency in home treatment regimens for optimal success were answered to their verbally confirmed satisfaction.?Shoe Gear Counseling:?SHOE Rx - The patient was counseled in great detail on their muscoloskeletal foot and toe deformities which coincided with the dermatological presentations visualized on exam. We discussed how their deformities put the integrity of their feet at risk for potential pedal complications which makes the accomidative diabetic shoes and cutomizable inserts medically necessary. We discussed the different shoe and insert treatment types and options, as well as the important advantages for adhering to regularly wearing these accomidative devices daily. The patient was made aware of the fact that a failure to abide by these recommedations may be deleterious to their foot health as they are able to prevent many pedal complications such as skin irritation, skin ulceration, infection, and even loss of toe/foot/leg/or life. Time was also spent with the patient dispensing and discussing proper diabetic footcare techniques including daily skin moisturization, daily foot inspection for any interruption in skin integrity including open lesions, or sign of infection such as redness/malodor/drainage/swelling. Also discussed and recommended were procedures regarding daily shoe inspection for the presence of internal foreign bodies as well as any visualized irregular shoe or insert wear. Patient questions re: shoes, inserts, and self foot inspections were answered to their satisfaction as the patient verbally confirmed a full understanding of the above information. A Rx for Extra Depth Orthopedic Shoes with 3 pair of custom heat-molded inserts was dispensed.? ??Screening/Special Tests:?Fall Risk?Screening:?No falls in the past year ?FALLS: Screening for Future Fall Risk?Have you had any falls with injury in the past year??No * Follow Up:?prn * Images: * Sign off status: Completed true * Provider:?Sujit Main DPM Date:?2024 Generated for Ayaka parrish/Kimberly/Edytasmmert on:?10/09/2024 01:40 PM EDT History and Physical Notes * HPI (History of Present Illness) Category Sub-Category Detail Notes Category Not es Toe pain Location: B/L feet Duration: several years Course: worse Aggravated by: shoes, any pressure Treatments: change in shoes At Risk footcare Pt States Last PCP Visit: Date: Examination Category Sub-Category Detail Notes Category Not es Neurological SENSORY: Neurological exa m reveals intact sensorium, pain sensation normal, vibration sensation intact, pinprick sensation is normal in the lower extremities, 5.07 monofilament test performed at plantar aspects of 5 varied sites per foot shows sensation, normal, B/L, Pt denies, anesthesia, burning, paresthesia, tingling, B/L Dermatologic SKIN FINDINGS: Skin exam reveal s Keratotic lesion(s) located at, SUB MTH (s), 1, B/L, SUB MTH (s), 5, B/L, Plantar Heel(s), B/L Orthopedic FOOT MORPHOLOGY: Pes Cavus struc ture, (-) Charcot collapse/destruction noted at MTJ FOOTWEAR EVALUATION: worn, non-supportiv e, shoe gear properties exacerbate patient's foot/toe deformity DIGITAL DEFORMITIES: Digital contracture , PIPJ, 2-5 B/L, incompl-reducible to push-up test, no over, nor underlapping, there is evidence of shoe producing skin irritation MUSCLE STRENGTH: 5/5 all groups in a symmetrical fashion, B/L General Examination GENERAL APPEARANCE: Reveals a pleasant, alert, well nourished, well-developed, well hydrated individual, who demonstrates proper attention to hygiene/body habitus, and is in no acute distress, Pt serves as own historian for office visit today FOOT EXAM: Lower Extremity Neurological Exa m performed:: Yes Date Visual exam of foot performed:: Yes Date: 08/13/2024 ORIENTED: person, place, and t ryder Footwear Evaluation Footwear Evaluation performe d:: Yes Ophthalmology Referral DIABETES EYE EXAM Procedure Perform ed:: Yes ?Date of Exam Performed: 07/22/2024 Diabetic Retinopathy Screening:: Yes Retinal Screening Performed:: Yes Findings of Diabetic Eye Exam:: no retin opathy Vascular DP PULSES (B): 0/4, B/L PT [...] malodorous subungual debris, with pain on palpation, TA, T1, T2, T3, T4, T5, T6, T7, T8, T9
--- OUTSIDE RECORDS SUMMARY | 2024-10-09 13:42 | XMS_ITS | Clinical Summary ---
Author Organization [facility] Address [address] [place] [address] Care Team Providers Care Hand Alterations Tailor Name Role Phone Guanakito Reeder MD Primary Care Provider [phone] Allergies No known active allergies Medications Medication [...] age to complete this topic Care Teams Hand Alterations Tailor Relationship Specialty Start Date End Date Guanakito Reeder MD PCP - General Internal Medicine 04/30/17
--- OUTSIDE RECORDS SUMMARY | 2024-10-09 13:43 | XMS_ITS ---
Author Organization [facility] Address [address] [place] [address] Care Team Providers Care Culinary Art Teacher Name Role Phone MICHELLE BAILEYIA Unavailable [phone] BRIDGET BENITEZ Unavailable [phone] REASON FOR VISIT CCM - colo, dexa Encounters Encounter Location Date Provider Diagnosis [facility] [address] [place] [address] 08/29/2024 BRIDGET BENITEZ Screening for osteoporosis Z13.820 and Osteopenia, unspecified location M85.80 ASSESSMENTS Encounter Date Diagnosis Assessment Notes Treatment Notes Treatment Clinical Notes Section Notes 08/29/2024 Screening for osteoporosis (ICD-10 - Z13.820) 08/29/2024 Osteopenia, unspecified location (ICD-10 - M85.80) PLAN OF TREATMENT Pending Test Test Name Order Date DEXA 08/29/2024 Next Appt Details Provider Name:THANIA ROMANR, 01:45:00 PM, [address] [place], [address], Provider Name:THANIA LYNN, 01:00:00 PM, [address] [place], [address], Progress Notes * ISABELLA HENDERSON LDOB:[birth year] (74 yo M)Acc No.[id number]:08/29/2024 Patient:??ISABELLA HENDERSON :1950?Age:74 Y?Sex:Kristen springer Address:[address], [place] [address] Subjective: * Chief Complaints: * ?CCM - colo, dexa * Medical History:?? * Surgical History:?? * Hospitalization/Major Diagno stic Procedure:?? * Medications:?? Objective: Assessment: * Assessment: 1.??Screening for osteoporos is - Z13.820??2.??Osteopenia, unspecified location - M85.80?? Plan: * Treatment: 2.??Osteopenia, unspecified location?Imaging: DEXA * Procedure Codes:?? * true * Date:??
--- OUTSIDE RECORDS SUMMARY | 2024-10-09 13:43 | XMS_ITS | Patient Health Record ---
Author Organization [facility] Address [address] [place] [address] Care Team Providers Care Pharmaceutical Scientist Name Role Phone THANIA BAILEY Unavailable [phone] GUANAKITO REEDER Unavailable [phone] ALLERGIES No Known Allergies RESULTS Component Value Reference Range Notes Hemoglobin [id number] Reviewed date:03/16/2024 09:26:37 PM Interpretation: Performing Lab:[facility], [address] [place] [address], Phone - [phone], Director - Maria Luisay Notes/Report: Hemoglobin A1c 7.2 4.8-5.6 % . Prediabetes: 5.7 - 6.4 Diabetes: >6.4 Glycemic control for adults with diabetes: <7.0 Rachell Gaspar CMP14 Default A hand-written panel/profile was received from your office. In accordance with the [facility] Amb[facility] Code Policy dated December 2002, we have completed your order by using the closest currently or formerly recognized AMA panel. We have assigned Comprehensive Metabolic Panel (14), Test Code #[id number] to this request. If this is not the testing you wished to receive on this specimen, please contact the [facility] Client Inquiry/Technical Services Department to clarify the test order. We appreciate your business. Urinalysis, Complete-[id number] Reviewed date:03/16/2024 08:44:36 PM Interpretation: Performing Lab:[facility], [address] [facility], [place], Phone - [phone], Director - MDJodry Notes/Report: Specific [place] 1.024 1.005-1.030 pH 6.5 5.0-7.5 Urine-Color Yellow Yellow Appearance Clear Clear WBC Esterase Negative Negative Protein Trace Negative/Trace Glucose Negative Negative Ketones Negative Negative Occult Blood Negative Negative Bilirubin Negative Negative Urobilinogen,Semi-Qn 1.0 0.2-1.0 mg/dL Nitrite, Urine Negative Negative Microscopic Examination Micr oscopic follows if indicated. Microscopic Examination See below: Micr oscopic was indicated and was performed. WBC None seen 0 - 5 /hpf RBC 0-2 0 - 2 /hpf Epithelial Cells (non renal) None seen 0 - 10 /hpf Epithelial Cells (renal) Casts None seen None seen /lpf Cast Type Crystals Crystal Type Mucus Threads Bacteria None seen None seen/Few Yeast Trichomonas Comment CBC With Differential/Platel et-[id number] Reviewed date:03/16/2024 09:27:02 PM Interpretation: Performing Lab:[facility], [address] [facility], [place], Phone - [phone], Director - Alia Notes/Report: WBC 7.3 3.4-10.8 x10E3/uL RBC 6.17 4.14-5.80 x10E6/uL Hemoglobin 19.6 13.0-17.7 g/dL Hematocrit 59.3 37.5-51.0 % MCV 96 79-97 fL MCH 31.8 26.6-33.0 pg MCHC 33.1 31.5-35.7 g/dL RDW 13.5 11.6-15.4 % Platelets 70 150-450 x10E3/uL Neutrophils 69 Not Estab. % Lymphs 19 Not Estab. % Monocytes 6 Not Estab. % Eos 4 Not Estab. % Basos 2 Not Estab. % Immature Cells Neutrophils (Absolute) 5.0 1.4-7.0 x10E3/uL Lymphs (Absolute) 1.4 0.7-3.1 x10E3/uL Monocytes(Absolute) 0.4 0.1-0.9 x10E3/uL Eos (Absolute) 0.3 0.0-0.4 x10E3/uL Baso (Absolute) 0.1 0.0-0.2 x10E3/uL Immature Granulocytes Immature Grans (Abs) NRBC Hematology Comments: Note: Manual differential was performed. Lipid Panel-[id number] Reviewed date:03/16/2024 09:26:42 PM Interpretation: Performing Lab:[facility] Salazar, [address] [facility], [place], Phone - [phone], Director - MDJodry Notes/Report: Cholesterol, Total 137 100-199 mg/dL Triglycerides 94 0-149 mg/dL HDL Cholesterol 35 >39 mg/dL VLDL Cholesterol [place] 18 5-40 mg/dL LDL Chol Calc ([facility]) 84 0-99 mg/dL LDL Calc Comment: Comp. Metabolic Panel (14)-3 Reviewed date:03/16/2024 09:26:50 PM Interpretation: Performing [facility], [address] [facility], Phone - [phone], Director - MDJigary Notes/Report: Glucose 152 70-99 mg/dL BUN 20 8-27 mg/dL Creatinine 1.31 0.76-1.27 mg/dL eGFR 57 >59 mL/min/1.73 BUN/Creatinine Ratio 15 10-24 Sodium 140 134-144 mmol/L Potassium 4.6 3.5-5.2 mmol/L Chloride 101 96-106 mmol/L Carbon Dioxide, Total 21 20-29 mmol/L Calcium 9.2 8.6-10.2 mg/dL Protein, Total 7.1 6.0-8.5 g/dL Albumin 4.0 3.8-4.8 g/dL Globulin, Total 3.1 1.5-4.5 g/dL Bilirubin, Total 0.8 0.0-1.2 mg/dL Alkaline Phosphatase 78 44-121 IU/L AST (SGOT) 48 0-40 IU/L ALT (SGPT) 47 0-44 IU/L Rachell Gaspar LP Default Reviewed date:03/16/2024 09:26:23 PM Interpretation: Performing Lab:[facility], [address] [facility], [place], Phone - [phone], Director - FLLivan Notes/Report: Rachell Gaspar LP Default A hand-written panel/profile was received from your office. In accordance with the [facility] Ambiguous Test Code Policy dated December 2002, we have completed your order by using the closest currently or formerly recognized AMA panel. We have assigned Lipid Panel, Test Code #091339 to this request. If this is not the testing you wished to receive on this specimen, please contact the [facility] Client Inquiry/Technical Services Department to clarify the test order. We appreciate your business. BD BONE DENSITY DXA AXIAL SK [facility] Reviewed date:10/06/2024 03:57:27 PM Interpretation: Performing Lab: Notes/Report: Note See Note [facility], a member of [employer] Patient Name: ISABELLA HENDERSON Date of : 1950 Reason for Exam: OSTEOPENIA OSTEOPOROSIS SCREENING Exam Date: 09/30/2024 [id number] EST Report Status: Final Ordering Provider: GUANAKITO REEDER PCP: GUANAKITO REEDER History: 74-year-old white male with arthritis. Current smoker. Comparison: No comparison study at this institution. Findings: Bone densitometry is performed utilizing dual energy x-ray absorptiometry (DXA) in the [employer] unit. The lumbar spine and proximal femora are evaluated in the AP projection. The FRAX questionaire was completed. The results indicate a Z score of -0.2 (left total femur), indicating bone mineral density within the range of normal for age. The detailed DEXA report will be mailed to the referring physician's office. DualFemur FRAX: 10-y ear Probability of Fracture: Major Osteoporotic 5.1 percent Hip 1.7 percent. IMPRESSION: Bone mineral density within the range of normal for age. [place] ([id number]) -------- FINAL REPOR T -------- Dictated By: Eli Quintanilla i Dictated Date: 09/30/2024 15:59 ET Assigned Physician: Eli Meléndez Reviewed and Electronically Signed By: Eli Meléndez Signed Date: 025 16:00 ET Workstation ID: [id number] Transcribed By: Self Edit Transcribed Date: 09/30/2024 15:59 ET REASON FOR REFERRAL Reason Polycythemia with Dr Max Garcia Diagnosis 1 Polycythemia (D75.1) Referral Organization [facility] Referring Provider First Name GUANAKITO Referring Provider Last Name EMMANUEL Referring Provider Speciality Internal M edicine Referred Provider Specialty Hematology General Notes [facility], [address] [place], [place] [address], P , F [phone] Clinical Notes Saray Grant 2023 10:53:06 AM >all referral info sent to Dr. Garcia, Juan Mckinley 02/04/2024 03:53:05 PM > Talked to Nitrisha and she asked to send over the patient demographics, insurance, last 3 notes: history and physical, and last 3 sets of labs., Saray Grant 02/14/2024 02:45:05 PM > Referral info including notes, labs, insurance, and demo faxed to [facility]. TY., Juan Mckinley 02/19/2024 01:55:34 PM > No referral received - Beat[facility]. Refaxed today twice., Juan Mckinley 02/26/2024 03:19:59 PM > LVM to new patient coordinator., Juan Mckinley 02/28/2024 02:00:48 PM >LVM to new patient coordinator again, Saray Grnat 02/29/2024 09:22:09 AM >Note from Dr. Garcia's office states pt declined appt and will Fu with TK. Referral Priority Routine Reason Dr pollard Diagnosis 1 Low platelet count ( D69.6) Referral Organization [facility] Referring Provider First Name THANIA Referring Provider Last Name LYNN Referring Provider Speciality Internal M edicine Referred Provider Jose Bain Referred Provider Specialty Hematology General Notes ZOË HARTLEY 1 07/15/2023 01:39:52 PM >[address] [facility] [address], 2 mi from Patient's Address, [phone], [phone] Clinical Notes Michelle Torres 03:12:41 PM > Patient was seen on 06/02/24 Referral Priority Routine Reason [facility] Diagnosis 1 Elevated rheumatoid factor (R76.8) Referral Organization [facility] Referring Provider First Name THANIA Referring Provider Last Name LYNN Referring Provider Speciality Internal M edicine Referred Provider Specialty Rheumatology General Notes [address] [facility], [facility] [address], 4 [address] from Patient's Address, [phone], [phone] Clinical Notes ZOË HARTLEY 0 07/15/2024 01:07:19 PM >Patient has not heard anything from dr veras office- Will try to send this over to ODILIA MENJIVAR KIERSTEN 07/15/2024 01:08:16 PM >faxed over [phone] fax: [phone], Michelle Torres 07/18/2024 04:08:44 PM > Scheduled for 11/04 at 1 pm. Pt aware Referral Priority Routine MEDICATIONS Medication SIG (Take, Route, Frequency, Duration) Notes Start Date End Date Status Eliquis 5 MG TAKE 1 TABLET BY BANDAR TH TWICE DAILY for 90 Active Montelukast Sodium 10 MG TAKE 1 TABLET B Y MOUTH EVERY EVENING for 90 Active Tamsulosin HCl 0.4 MG TAKE 1 CAPSULE BY MOUTH EVERY DAY Orally Once a day for 90 days Active Atorvastatin Calcium 40 MG TAKE 1 TABLET BY MOUTH EVERY DAY Orally Once a day for 90 days Active metFORMIN HCl ER 500 MG TAKE 2 TABLETS B Y MOUTH DAILY IN THE EVENING for 90 Active Digoxin 125 MCG TAKE 1 TABLET BY BANDAR TH EVERY DAY Orally Once a day for 90 days Active Losartan Potassium 25 MG TAKE 1 TABLET B Y MOUTH EVERY DAY for 90 Active Breo Ellipta 100-25 MCG/INH 1 Puff inhal ation once daily for 30 days PRN Active Albuterol Sulfate HFA 108 (90 Base) MCG/ACT 1-2 puff as needed for sob Inhalation every 6 hrs for 30 days Active Metoprolol Tartrate 50 MG 1 tablet with food Orally Twice a day for 90 days Active Pantoprazole Sodium 40 MG TAKE 1 TABLET BY MOUTH EVERY DAY for 90 Active Sildenafil Citrate 100 MG 1 tablet as ne eded for sex Orally Once a day for 30 days 10/31/2023 Active IMMUNIZATIONS Vaccine Route Administration Date Status Comme nts influenza IM Intramuscular 03/03/2021 Administered Influenza, high dose seasonal IM Intramuscular 03/19/2019 Administered Influenza, high dose seasonal IM Intramuscular 03/26/2023 Administered SOCIAL HISTORY Tobacco Use: Social History Observation Description Date Details (start date - stop date) Current Smoker NA - NA Sex Assigned At : Social History Observation Description Sex Assigned At Unknown Tobacco Use/Smoking Question Answer Notes Are you a current smoker How often do you smoke cigarettes? every day How many cigarettes a day do you smoke? 6-10 PROBLEMS Problem Type ICD Code Onset Dates Problem Status W/U Status Risk SNOMED Code Notes Problem Type 2 diabetes mellitus with unspecified complications (E11.8) Active confirmed 70770544 Problem Mixed hyperlipidemia (E78.2) Active confirmed 498693035 Problem Essential (primary) hypertension (I10) Active confirmed Essential hypertension (32205774) Problem Paroxysmal atrial fibrillation (I48.0) Active confirmed Paroxys mal atrial fibrillation (708574310) Problem Heart failure, unspecified (I50.9) Active confirmed Heart fa ilure (06474108) Problem Occlusion and stenosis of unspecified carotid artery (I65.29) Active confirmed Carotid perry ry occlusion (158276569) Problem Chronic sinusitis, unspecified (J32.9) Active confirmed Chronic sinusitis (35498423) Problem Encounter for genera l adult medical examination without abnormal findings (Z00.00) Active confirmed 739687588 Problem Essential hypertension (I10) Active confirmed 38703935 Problem Diverticulitis (K57.92) Active confirmed 024312385 Problem Type 2 diabetes mellitus with complication, unspecified whether intermodal dispatcher insulin use (E11.8) Active confirmed Disorder due to type 2 diabetes mellitus (332872829) Problem Acquired hyperlipoproteinemia (E78.5) Active confirmed Hyperlipoprotei nemia (8440499) Problem Pneumonia of lower lobe due to infectious organism, unspecified laterality (J18.9) Active confirmed 675413630 Problem Obesity (BMI 30-39.9 ) (E66.9) Active confirmed Obesity (527105478) Problem Cigarette nicotine dependence with nicotine-induced disorder (F17.219) Active confirmed 11807911 Problem Thrombocytopenia (D69.6) Active confirmed 187094741 Problem Adult-onset obesity (E66.9) Active confirmed 865567588 Problem Cough (R05.9) Active confirmed Cough (4 6182591) Problem Low platelet count (D69.6) Active confirmed 204223072 Problem Erythrocytosis (D75.1) Active confirmed 898321650 VITAL SIGNS Heart Rate 76 /min 07/15/2024 Blood pressure diastolic 80 mm Hg 07/15/2024 Oximetry 98 % 07/15/2024 Height 67 in 07/15/2024 Blood pressure systolic 128 mm Hg 07/15/2024 Weight 271.4 lbs 07/15/2024 BMI 42.5 kg/m2 07/15/2024 Encounters Encounter Location Date Provider Diagnosis [facility] [address] [place] [address] 10/31/2023 GUANAKITO REEDER Paroxysmal atrial fibrillation I48.0 ; Essential (primary) hypertension I10 ; Chronic sinusitis, unspecified J32.9 ; Acquired hyperlipoproteinemia E78.5 ; Heart failure, unspecified I50.9 ; Type 2 diabetes mellitus with complication, unspecified whether alf insulin use E11.8 ; Cough R05 and Cigarette nicotine dependence with nicotine-induced disorder F17.219 [facility] [address] [place] [address] 03/12/2024 THANIA LYNN Adult-onset obesity E66.9 ; Medicare annual wellness visit, subsequent Z00.00 ; Depression screening Z13.31 ; Encounter for screening for other disorder Z13.89 ; Advance care planning Z71.89 ; Paroxysmal atrial fibrillation I48.0 ; Essential (primary) hypertension I10 ; Heart failure, unspecified I50.9 and Cough R05.9 [facility] [address] [place] [address] 04/21/2024 THANIA LYNN Paroxysmal atrial fibrillation I48.0 ; Cough R05.9 ; Essential (primary) hypertension I10 and Heart failure, unspecified I50.9 [facility] [address] [place] [address] 05/15/2024 THANIA LYNN Paroxysmal atrial fibrillation I48.0 ; Heart failure, unspecified I50.9 ; Thrombocytopenia D69.6 ; Hand pain, left M79.642 ; Hand pain, right M79.641 ; Erythrocytosis D75.1 ; Mixed hyperlipidemia E78.2 and Essential hypertension I10 [facility] [address] [place] [address] 07/15/2024 THANIA LYNN Type 2 diabetes janey itus with unspecified complications E11.8 ; Paroxysmal atrial fibrillation I48.0 ; Cough R05.9 ; Essential (primary) hypertension I10 and Heart failure, unspecified I50.[address] [facility] [address] [place] [address] 11/02/2023 TALLUZ REEDER [facility] [address] [place] [address] 01/25/20[facility] [address] [facility] [address] [place] [address] 02/13/20[facility] [address] [place] [address] 03/21/2024 GUANAKITO REEDER [facility] [address] [place] [address] 03/25/2024 [facility]O [facility]ED[facility] [address] [address] 05/14/2024 THANIA LYNN [facility] [address] [address] 05/15/2024 THANIA LYNN Low platelet count D 69.6 and Elevated rheumatoid factor R76.8 [facility] [address] 05/23/2024 GUANAKITO REEDER [facility] [address] [place] [address] 08/29/2024 GUANAKITO REEDER Screening for osteop orosis Z13.820 and Osteopenia, unspecified location M85.80 [facility] [address] [place] [phone] 09/18/2024 THANIA LYNN ASSESSMENTS Encounter Date Diagnosis Assessment Notes Treatment Notes Treatment Clinical Notes Section Notes 10/31/2023 Essential (primary) hypertension (ICD-10 - I10) Discussed patien t's labs from 06/2023 with him. For the most part labs are looking good however CBC is showing increased production of RBCs which could be due to primary or secondary polcythemia. We will continue to monitor these levels however should they consider to rise we may have to do more testing or have patient return to doing periodic phlebotomy. Will consult with Dr. Garcia who is a specialist regarding this. Patient states he is otherwise doing ok. We will send in a script for a Sildenafil refill to his pharmacy of choice. F/u in February of 2024. Patient aware and agreeable to assessment and plan. Patient given opportunity to ask any questions. All questions answered to patient's satisfaction. 10/31/2023 Paroxysmal atrial fibrillation (ICD-10 - I48.0) Discussed patien t's labs from 06/2023 with him. For the most part labs are looking good however CBC is showing increased production of RBCs which could be due to primary or secondary polcythemia. We will continue to monitor these levels however should they consider to rise we may have to do more testing or have patient return to doing periodic phlebotomy. Will consult with Dr. Garcia who is a specialist regarding this. Patient states he is otherwise doing ok. We will send in a script for a Sildenafil refill to his pharmacy of choice. F/u in February of 2024. Patient aware and agreeable to assessment and plan. Patient given opportunity to ask any questions. All questions answered to patient's satisfaction. 03/12/2024 Medicare annual wellness visit, subsequent (ICD-10 - Z00.00) Wellness visit: # Erythrocytosis: : CBC conducted in June 2023 that showed a red blood cell count of 6.65 and a hemoglobin of 20.9, hematocrit was 60.4 and platelet count of 45. Recent labs on 03/08 CBC showed RBC of 6.17, Hemoglobin of 19.6, hematocrit of 59.3 and platelet count of 70. Patient declined hematology referral placed. Suspect possible secondary polycythemia due to COPD. # Chronic A Fib. On NOAC , Eliquis 5 mg po BID. On Digoxin. Level not obtained. Will obtain EKG at next visit. Dig level will also be checked. #Immunzation: In office recommended obtaining the Prevnar 20 vaccine, flu vaccine and COVID booster # Chronic Cough: Suspect underlying COPD. Patient presents the office with a productive white sputum cough for the past month. Spoke to the patient about potential lung cancer surveillance with ordering a CT scan, patient admits he will think about this and we will discuss this at follow-up visit in 1 month. At this time a chest x-ray has been ordered to rule out any potential respiratory infections, due to rhonci heard on exam. Will treat accordingly to the chest x-ray results. Patient is to continue to utilize his inhaler daily. # Essential HTN:Blood pressure in office today is 156/76. Patient is to continue taking his losartan, will recheck blood pressure at follow-up visit in 1 month. May need to increase Losartan dose, or add on Ca channel ngoc. Cessation with smoking, low salt diet and weight loss would also benefit in antihypertensive treatment # Hyperlipidemia: Only abnormal value found on the labs from 03/08 was an HDL cholesterol of 35. Patient is to continue with his current cholesterol medications that include atorvastatin 40 mg. Will continue to monitor patient and encourage healthier fats in the diet. # Peripheral vascular disease: Patient is to call the office if there are any significant changes to his legs bilaterally. Patient notes that his left lower leg the scar is slowly healing and he applies moisturizer on it daily # Nicotine abuse: Patient has no interest in smoking cessation today. He admits that he continues to smoke 1 pack daily. Will discuss lung cancer surveillance at follow-up as he has been educated on the benefits of performing a CT scan. # Screenings: Declines colon cancer screening Physical Men Patient seen and examined. Comprehensive discussion was done on the following. 1. Nutrition: It is important to follow a healthy diet based on lots of vegetables and legumes and good fat. Avoid processed food and processed carbohydrates. Learn to prepare your own meals. Learn to read labels and avoid high fructose corn syrup, processed chemicals added to increase shelf life and preprepared meals. Avoid fast foods. Learn to eat slowly and plan meals for a week. Try to count calories and be mindful off daily calorie intake. Get into the habit of keeping an eye on your weight by using an appropriate scale. Learn to log exercise and discussed fitness Apps like [employer] which can help keep log off calories taken versus calories burned. Local food should be preferred. Discussed Dirty Dozen Versus Clean Fifteen. Discussed healthy supplements like fish oil, Tumeric, Curcumin, Melatonin, Resveratrol, Probiotics, Vitamin-D, Alpha-Lipoic acid, Vitamin-D and coconut oil. 2. It is important to exercise regularly. Is a good habit to walk at least 30-45 minutes a day. Gentle weightlifting with standard precautions to protect the back. Finding activity like cycling or hiking and get into the habit of engaging in it. Stretching before and after the exercises important. It is also important to contact me if there are any problems like shortness of breath, chest pain, back pain and joint or muscle pain associated with the exercise. 3. Discussed age appropriate screening guidelines. Colonoscopy needs to start at age 50 with stool for occult blood as appropriate. There is a new test that can test for genetic abnormalities in the stool sample. This would not replace a colonoscopy but could be used as a screening tool for patients who do not want a colonoscopy. We discussed the importance of early detection of colon cancer. 4. Discussed current PSA screening. PSA screening can be done in most patients between age 50 and 65. However early detection of prostate cancer needs to carefully be balanced with complications with treatment. These include incontinence, impotence etc. Each patient should decide if they would like to have this test. 5. Discussed safe driving and no use of smart phone while driving 6. Age-appropriate immunizations were discussed. A tetanus booster is needed every 10 years. Flu vaccine is recommended every year just before the start of the flu season. Shingles vaccine is recommended after age 50 but not all insurances cover it. Pneumonia vaccine is given after age 65 unless there are certain comorbidities for which it is started earlier. 7. Diagnostic labs were discussed. These could include CBC CMP and lipids with fasting blood glucose and insulin levels. Vitamin D and hemoglobin A1c testing might be appropriate. Patient is here for a Medicare wellness visit. Complete paperwork was reviewed and updated and has been filed and scan. Depression screen completed. Alcohol AUDIT SCREEN completed. Obesity screen completed. Cardiovascular risk stratification screen completed. Cognition assessed and within reasonable limits Fall risk assessed Discussed healthcare proxy. Discussed [place] order for life sustaining treatment, end-of-life issues, intubation and resuscitation dialysis artificial nutrition and hydration is appropriate. Case was discussed with Dr. Guanakito Reeder. Please note, that there may be dictation errors. All questions were answered to the patient's satisfaction. 03/12/2024 Adult-onset obesity (ICD-10 - E66.9) Wellness visit: # Erythrocytosis: : CBC conducted in June 2023 that showed a red blood cell count of 6.65 and a hemoglobin of 20.9, hematocrit was 60.4 and platelet count of 45. Recent labs on 03/08 CBC showed RBC of 6.17, Hemoglobin of 19.6, hematocrit of 59.3 and platelet count of 70. Patient declined hematology referral placed. Suspect possible secondary polycythemia due to COPD. # Chronic A Fib. On NOAC , Eliquis 5 mg po BID. On Digoxin. Level not obtained. Will obtain EKG at next visit. Dig level will also be checked. #Immunzation: In office recommended obtaining the Prevnar 20 vaccine, flu vaccine and COVID booster # Chronic Cough: Suspect underlying COPD. Patient presents the office with a productive white sputum cough for the past month. Spoke to the patient about potential lung cancer surveillance with ordering a CT scan, patient admits he will think about this and we will discuss this at follow-up visit in 1 month. At this time a chest x-ray has been ordered to rule out any potential respiratory infections, due to rhonci heard on exam. Will treat accordingly to the chest x-ray results. Patient is to continue to utilize his inhaler daily. # Essential HTN:Blood pressure in office today is 156/76. Patient is to continue taking his losartan, will recheck blood pressure at follow-up visit in 1 month. May need to increase Losartan dose, or add on Ca channel ngoc. Cessation with smoking, low salt diet and weight loss would also benefit in antihypertensive treatment # Hyperlipidemia: Only abnormal value found on the labs from 03/08 was an HDL cholesterol of 35. Patient is to continue with his current cholesterol medications that include atorvastatin 40 mg. Will continue to monitor patient and encourage healthier fats in the diet. # Peripheral vascular disease: Patient is to call the office if there are any significant changes to his legs bilaterally. Patient notes that his left lower leg the scar is slowly healing and he applies moisturizer on it daily # Nicotine abuse: Patient has no interest in smoking cessation today. He admits that he continues to smoke 1 pack daily. Will discuss lung cancer surveillance at follow-up as he has been educated on the benefits of performing a CT scan. # Screenings: Declines colon cancer screening Physical Men Patient seen and examined. Comprehensive discussion was done on the following. 1. Nutrition: It is important to follow a healthy diet based on lots of vegetables and legumes and good fat. Avoid processed food and processed carbohydrates. Learn to prepare your own meals. Learn to read labels and avoid high fructose corn syrup, processed chemicals added to increase shelf life and preprepared meals. Avoid fast foods. Learn to eat slowly and plan meals for a week. Try to count calories and be mindful off daily calorie intake. Get into the habit of keeping an eye on your weight by using an appropriate scale. Learn to log exercise and discussed fitness Apps like [employer] which can help keep log off calories taken versus calories burned. Local food should be preferred. Discussed Dirty Dozen Versus Clean Fifteen. Discussed healthy supplements like fish oil, Tumeric, Curcumin, Melatonin, Resveratrol, Probiotics, Vitamin-D, Alpha-Lipoic acid, Vitamin-D and coconut oil. 2. It is important to exercise regularly. Is a good habit to walk at least 30-45 minutes a day. Gentle weightlifting with standard precautions to protect the back. Finding activity like cycling or hiking and get into the habit of engaging in it. Stretching before and after the exercises important. It is also important to contact me if there are any problems like shortness of breath, chest pain, back pain and joint or muscle pain associated with the exercise. 3. Discussed age appropriate screening guidelines. Colonoscopy needs to start at age 50 with stool for occult blood as appropriate. There is a new test that can test for genetic abnormalities in the stool sample. This would not replace a colonoscopy but could be used as a screening tool for patients who do not want a colonoscopy. We discussed the importance of early detection of colon cancer. 4. Discussed current PSA screening. PSA screening can be done in most patients between age 50 and 65. However early detection of prostate cancer needs to carefully be balanced with complications with treatment. These include incontinence, impotence etc. Each patient should decide if they would like to have this test. 5. Discussed safe driving and no use of smart phone while driving 6. Age-appropriate immunizations were discussed. A tetanus booster is needed every 10 years. Flu vaccine is recommended every year just before the start of the flu season. Shingles vaccine is recommended after age 50 but not all insurances cover it. Pneumonia vaccine is given after age 65 unless there are certain comorbidities for which it is started earlier. 7. Diagnostic labs were discussed. These could include CBC CMP and lipids with fasting blood glucose and insulin levels. Vitamin D and hemoglobin A1c testing might be appropriate. Patient is here for a Medicare wellness visit. Complete paperwork was reviewed and updated and has been filed and scan. Depression screen completed. Alcohol AUDIT SCREEN completed. Obesity screen completed. Cardiovascular risk stratification screen completed. Cognition assessed and within reasonable limits Fall risk assessed Discussed healthcare proxy. Discussed [place] order for life sustaining treatment, end-of-life issues, intubation and resuscitation dialysis artificial nutrition and hydration is appropriate. Case was discussed with Dr. Guanakito Reeder. Please note, that there may be dictation errors. All questions were answered to the patient's satisfaction. 04/21/2024 Paroxysmal atrial fibrillation (ICD-10 - I48.0) Emir is a pleasant 74-year-old male who presents today for a 1 month follow-up, patient had a chronic cough at last visit, x-ray was clear of any abnormalities. States that he is overall feeling well, states that he coughs at baseline however is not interested in smoking cessation at this time. # Erythrocytosis: : CBC conducted in June 2023 that showed a red blood cell count of 6.65 and a hemoglobin of 20.9, hematocrit was 60.4 and platelet count of 45. Recent labs on 03/08 CBC showed RBC of 6.17, Hemoglobin of 19.6, hematocrit of 59.3 and platelet count of 70. Patient declined hematology referral placed. Suspect possible secondary polycythemia due to COPD. # Chronic A Fib. On NOAC , Eliquis 5 mg po BID. On Digoxin. Level not obtained. Dig level should be obtained. #Immunzation: Obtained the recommended obtaining the Prevnar 20 vaccine, flu vaccine and COVID booster # Chronic Cough: Suspect underlying COPD. Patient presents the office with a productive white sputum cough for the past month. Spoke to the patient about potential lung cancer surveillance with ordering a CT scan, patient admits he will think about this. At this time a chest x-ray is negative, potential respiratory infections, due to rhonci heard on exam. Patient is to continue to utilize his inhaler daily. # Essential HTN: Patient is to continue taking his losartan. May need to increase Losartan dose, or add on Ca channel ngoc. Cessation with smoking, low salt diet and weight loss would also benefit in antihypertensive treatment # Hyperlipidemia: Only abnormal value found on the labs from 03/08 was an HDL cholesterol of 35. Patient is to continue with his current cholesterol medications that include atorvastatin 40 mg. Will continue to monitor patient and encourage healthier fats in the diet. # Peripheral vascular disease: Patient is to call the office if there are any significant changes to his legs bilaterally. Patient notes that his left lower leg the scar is slowly healing and he applies moisturizer on it daily # Nicotine abuse: Patient has no interest in smoking cessation today. He admits that he continues to smoke 1 pack daily. Will discuss lung cancer surveillance at follow-up as he has been educated on the benefits of performing a CT scan. # Screenings: Declines colon cancer screening All questions have been answered to patient's satisfaction. Patient verbalized understanding of diagnosis and treatments explained. Advised to call sooner prior to next visit it any questions/concerns arise. Case discussed with Vick ALBA who reviewed the assessment and plan. Chart, medications, labs, vital signs reviewed. Dictation was accomplished with the use of [employer] voice recognition software, which is prone to medical misidentifications and grammatical errors. This are unintentional and the practitioner does try to identify and correct these, but some could still be present. Please do not hesitate to contact practitioner for clarification. 04/21/2024 Cough (ICD-10 - R05.9) Emir is a pleasant 74-year-old male who presents today for a 1 month follow-up, patient had a chronic cough at last visit, x-ray was clear of any abnormalities. States that he is overall feeling well, states that he coughs at baseline however is not interested in smoking cessation at this time. # Erythrocytosis: : CBC conducted in June 2023 that showed a red blood cell count of 6.65 and a hemoglobin of 20.9, hematocrit was 60.4 and platelet count of 45. Recent labs on 03/08 CBC showed RBC of 6.17, Hemoglobin of 19.6, hematocrit of 59.3 and platelet count of 70. Patient declined hematology referral placed. Suspect possible secondary polycythemia due to COPD. # Chronic A Fib. On NOAC , Eliquis 5 mg po BID. On Digoxin. Level not obtained. Dig level should be obtained. #Immunzation: Obtained the recommended obtaining the Prevnar 20 vaccine, flu vaccine and COVID booster # Chronic Cough: Suspect underlying COPD. Patient presents the office with a productive white sputum cough for the past month. Spoke to the patient about potential lung cancer surveillance with ordering a CT scan, patient admits he will think about this. At this time a chest x-ray is negative, potential respiratory infections, due to rhonci heard on exam. Patient is to continue to utilize his inhaler daily. # Essential HTN: Patient is to continue taking his losartan. May need to increase Losartan dose, or add on Ca channel ngoc. Cessation with smoking, low salt diet and weight loss would also benefit in antihypertensive treatment # Hyperlipidemia: Only abnormal value found on the labs from 03/08 was an HDL cholesterol of 35. Patient is to continue with his current cholesterol medications that include atorvastatin 40 mg. Will continue to monitor patient and encourage healthier fats in the diet. # Peripheral vascular disease: Patient is to call the office if there are any significant changes to his legs bilaterally. Patient notes that his left lower leg the scar is slowly healing and he applies moisturizer on it daily # Nicotine abuse: Patient has no interest in smoking cessation today. He admits that he continues to smoke 1 pack daily. Will discuss lung cancer surveillance at follow-up as he has been educated on the benefits of performing a CT scan. # Screenings: Declines colon cancer screening All questions have been answered to patient's satisfaction. Patient verbalized understanding of diagnosis and treatments explained. Advised to call sooner prior to next visit it any questions/concerns arise. Case discussed with Vick ALBA who reviewed the assessment and plan. Chart, medications, labs, vital signs reviewed. Dictation was accomplished with the use of [employer] voice recognition software, which is prone to medical misidentifications and grammatical errors. This are unintentional and the practitioner does try to identify and correct these, but some could still be present. Please do not hesitate to contact practitioner for clarification. 05/15/2024 Paroxysmal atrial fibrillation (ICD-10 - I48.0) Emir is a pleasant 74-year-old medically complex male who presents via telehealth in regards to his abnormal lab results that were ordered by , a hand surgeon. #vascular surgery note from [facility]: Date of service 08/12/2020, plan stated [...] hematology note: Patient was last seen by [facility] hematology on 07/30/2019, this states that [...] Dictation was accomplished with the use of [employer] voice recognition software, which is prone to [...] a hand surgeon. #vascular surgery note from [facility]: Date of service 08/12/2020, plan stated [...] hematology note: Patient was last seen by [facility] hematology on 07/30/2019, this states that [...] Dictation was accomplished with the use of [employer] voice recognition software, which is prone to medical misidentifications and grammatical errors. This are unintentional and the practitioner does try to identify and correct these, but some could still be present. Please do not hesitate to contact practitioner for clarification. 05/15/2024 Low platelet count (ICD-10 - D69.6) 07/15/2024 Type 2 diabetes mellitus with unspecified complications (ICD-10 - E11.8) Emir is a pleasant 74-year-old male who presents today for a follow up. #Diabetes: Metformin 500 BID added to regimen today #Recent hematology note: 74-year-old male with erythrocytosis last seen in our office in 2019. Patient states he used to have phlebotomy, stopped going for 5 years ago. Smokes a pack of cigarettes a day, has asthma, question COPD, has inhalers but does not use them. Patient did have a CT of the abdomen and pelvis with IV contrast on June 18, 2024 that demonstrated spleen is normal in size and appearance, possible aneurysmal dilation of the left circumflex coronary artery, correlation with cardiac imaging is suggested. The overall assessment was to order a carboxyhemoglobin, CBC with differential,'s citrated platelet count, JAK2, reticulocyte count. Plan is to obtain lab work, patient will start phlebotomy at [facility], obtaining smear for further evaluation of thrombocytopenia. 3-month follow-up recommended. # Erythrocytosis: : CBC conducted in June 2023 that showed a red blood cell count of 6.65 and a hemoglobin of 20.9, hematocrit was 60.4 and platelet count of 45. Recent labs on 03/08 CBC showed RBC of 6.17, Hemoglobin of 19.6, hematocrit of 59.3 and platelet count of 70. # Chronic A Fib. On NOAC , Eliquis 5 mg po BID. On Digoxin, Digoxin level should be obtained. #Immunzation: Obtained the recommended obtaining the Prevnar 20 vaccine, flu vaccine and COVID booster # Chronic Cough: Suspect underlying COPD. Patient presents the office with a productive white sputum cough for the past month. Spoke to the patient about potential lung cancer surveillance with ordering a CT scan, patient admits he will think about this. At this time a chest x-ray is negative, potential respiratory infections, due to rhonci heard on exam. Patient is to continue to utilize his inhaler daily. # Essential HTN: Patient is to continue taking his losartan. May need to increase Losartan dose, or add on Ca channel ngoc. Cessation with smoking, low salt diet and weight loss would also benefit in antihypertensive treatment # Hyperlipidemia: Only abnormal value found on the labs from 03/08 was an HDL cholesterol of 35. Patient is to continue with his current cholesterol medications that include atorvastatin 40 mg. Will continue to monitor patient and encourage healthier fats in the diet. # Peripheral vascular disease: Patient is to call the office if there are any significant changes to his legs bilaterally. Patient notes that his left lower leg the scar is slowly healing and he applies moisturizer on it daily # Nicotine abuse: Patient has no interest in smoking cessation today. He admits that he continues to smoke 1 pack daily. Will discuss lung cancer surveillance at follow-up as he has been educated on the benefits of performing a CT scan. # Screenings: Declines colon cancer screening All questions have been answered to patient's satisfaction. Patient verbalized understanding of diagnosis and treatments explained. Advised to call sooner prior to next visit it any questions/concerns arise. Case discussed with Vick ALBA who reviewed the assessment and plan. Chart, medications, labs, vital signs reviewed. Dictation was accomplished with the use of [employer] voice recognition software, which is prone to medical misidentifications and grammatical errors. This are unintentional and the practitioner does try to identify and correct these, but some could still be present. Please do not hesitate to contact practitioner for clarification. 08/29/2024 Screening for osteoporosis (ICD-10 - Z13.820) 08/29/2024 Osteopenia, unspecified location (ICD-10 - M85.80) 07/15/2024 Paroxysmal atrial fibrillation (ICD-10 - I48.0) Emir is a pleasant 74-year-old male who presents today for a follow up. #Diabetes: Metformin 500 BID added to regimen today #Recent hematology note: 74-year-old male with erythrocytosis last seen in our office in 2019. Patient states he used to have phlebotomy, stopped going for 5 years ago. Smokes a pack of cigarettes a day, has asthma, question COPD, has inhalers but does not use them. Patient did have a CT of the abdomen and pelvis with IV contrast on June 18, 2024 that demonstrated spleen is normal in size and appearance, possible aneurysmal dilation of the left circumflex coronary artery, correlation with cardiac imaging is suggested. The overall assessment was to order a carboxyhemoglobin, CBC with differential,'s citrated platelet count, JAK2, reticulocyte count. Plan is to obtain lab work, [facility] obtaining smear for further evaluation of thrombocytopenia. 3-month follow-up recommended. # Erythrocytosis: : CBC conducted in June 2023 that showed a red blood cell count of 6.65 and a hemoglobin of 20.9, hematocrit was 60.4 and platelet count of 45. Recent labs on 03/08 CBC showed RBC of 6.17, Hemoglobin of 19.6, hematocrit of 59.3 and platelet count of 70. # Chronic A Fib. On NOAC , Eliquis 5 mg po BID. On Digoxin, Digoxin level should be obtained. #Immunzation: Obtained the recommended obtaining the Prevnar 20 vaccine, flu vaccine and COVID booster # Chronic Cough: Suspect underlying COPD. Patient presents the office with a productive white sputum cough for the past month. Spoke to the patient about potential lung cancer surveillance with ordering a CT scan, patient admits he will think about this. At this time a chest x-ray is negative, potential respiratory infections, due to rhonci heard on exam. Patient is to continue to utilize his inhaler daily. # Essential HTN: Patient is to continue taking his losartan. May need to increase Losartan dose, or add on Ca channel ngoc. Cessation with smoking, low salt diet and weight loss would also benefit in antihypertensive treatment # Hyperlipidemia: Only abnormal value found on the labs from 03/08 was an HDL cholesterol of 35. Patient is to continue with his current cholesterol medications that include atorvastatin 40 mg. Will continue to monitor patient and encourage healthier fats in the diet. # Peripheral vascular disease: Patient is to call the office if there are any significant changes to his legs bilaterally. Patient notes that his left lower leg the scar is slowly healing and he applies moisturizer on it daily # Nicotine abuse: Patient has no interest in smoking cessation today. He admits that he continues to smoke 1 pack daily. Will discuss lung cancer surveillance at follow-up as he has been educated on the benefits of performing a CT scan. # Screenings: Declines colon cancer screening All questions have been answered to patient's satisfaction. Patient verbalized understanding of diagnosis and treatments explained. Advised to call sooner prior to next visit it any questions/concerns arise. Case discussed with Vick ALBA who reviewed the assessment and plan. Chart, medications, labs, vital signs reviewed. Dictation was accomplished with the use of [employer] voice recognition software, which is prone to medical misidentifications and grammatical errors. This are unintentional and the practitioner does try to identify and correct these, but some could still be present. Please do not hesitate to contact practitioner for clarification. 05/15/2024 Elevated rheumatoid factor (ICD-10 - R76.8) 05/15/2024 Thrombocytopenia (ICD-10 - D69.6) Emir is a pleasant 74-year-old medically complex male who presents via telehealth in regards to his abnormal lab results that were ordered by , a hand surgeon. #vascular surgery note from [facility]: Date of service 08/12/2020, plan stated [...] hematology note: Patient was last seen by [facility] hematology on 07/30/2019, this states that [...] Dictation was accomplished with the use of [employer] voice recognition software, which is prone to medical misidentifications and grammatical errors. This are unintentional and the practitioner does try to identify and correct these, but some could still be present. Please do not hesitate to contact practitioner for clarification. 03/12/2024 Depression screening (ICD-10 - Z13.31) Wellness visit: # Erythrocytosis: : CBC conducted in June 2023 that showed a red blood cell count of 6.65 and a hemoglobin of 20.9, hematocrit was 60.4 and platelet count of 45. Recent labs on 03/08 CBC showed RBC of 6.17, Hemoglobin of 19.6, hematocrit of 59.3 and platelet count of 70. Patient declined hematology referral placed. Suspect possible secondary polycythemia due to COPD. # Chronic A Fib. On NOAC , Eliquis 5 mg po BID. On Digoxin. Level not obtained. Will obtain EKG at next visit. Dig level will also be checked. #Immunzation: In office recommended obtaining the Prevnar 20 vaccine, flu vaccine and COVID booster # Chronic Cough: Suspect underlying COPD. Patient presents the office with a productive white sputum cough for the past month. Spoke to the patient about potential lung cancer surveillance with ordering a CT scan, patient admits he will think about this and we will discuss this at follow-up visit in 1 month. At this time a chest x-ray has been ordered to rule out any potential respiratory infections, due to rhonci heard on exam. Will treat accordingly to the chest x-ray results. Patient is to continue to utilize his inhaler daily. # Essential HTN:Blood pressure in office today is 156/76. Patient is to continue taking his losartan, will recheck blood pressure at follow-up visit in 1 month. May need to increase Losartan dose, or add on Ca channel ngoc. Cessation with smoking, low salt diet and weight loss would also benefit in antihypertensive treatment # Hyperlipidemia: Only abnormal value found on the labs from 03/08 was an HDL cholesterol of 35. Patient is to continue with his current cholesterol medications that include atorvastatin 40 mg. Will continue to monitor patient and encourage healthier fats in the diet. # Peripheral vascular disease: Patient is to call the office if there are any significant changes to his legs bilaterally. Patient notes that his left lower leg the scar is slowly healing and he applies moisturizer on it daily # Nicotine abuse: Patient has no interest in smoking cessation today. He admits that he continues to smoke 1 pack daily. Will discuss lung cancer surveillance at follow-up as he has been educated on the benefits of performing a CT scan. # Screenings: Declines colon cancer screening Physical Men Patient seen and examined. Comprehensive discussion was done on the following. 1. Nutrition: It is important to follow a healthy diet based on lots of vegetables and legumes and good fat. Avoid processed food and processed carbohydrates. Learn to prepare your own meals. Learn to read labels and avoid high fructose corn syrup, processed chemicals added to increase shelf life and preprepared meals. Avoid fast foods. Learn to eat slowly and plan meals for a week. Try to count calories and be mindful off daily calorie intake. Get into the habit of keeping an eye on your weight by using an appropriate scale. Learn to log exercise and discussed fitness Apps like [employer] which can help keep log off calories taken versus calories burned. Local food should be preferred. Discussed [employer] Versus [employer]teen. Discussed healthy supplements like fish oil, Tumeric, Curcumin, Melatonin, Resveratrol, Probiotics, Vitamin-D, Alpha-Lipoic acid, Vitamin-D and coconut oil. 2. It is important to exercise regularly. Is a good habit to walk at least 30-45 minutes a day. Gentle weightlifting with standard precautions to protect the back. Finding activity like cycling or hiking and get into the habit of engaging in it. Stretching before and after the exercises important. It is also important to contact me if there are any problems like shortness of breath, chest pain, back pain and joint or muscle pain associated with the exercise. 3. Discussed age appropriate screening guidelines. Colonoscopy needs to start at age 50 with stool for occult blood as appropriate. There is a new test that can test for genetic abnormalities in the stool sample. This would not replace a colonoscopy but could be used as a screening tool for patients who do not want a colonoscopy. We discussed the importance of early detection of colon cancer. 4. Discussed current PSA screening. PSA screening can be done in most patients between age 50 and 65. However early detection of prostate cancer needs to carefully be balanced with complications with treatment. These include incontinence, impotence etc. Each patient should decide if they would like to have this test. 5. Discussed safe driving and no use of smart phone while driving 6. Age-appropriate immunizations were discussed. A tetanus booster is needed every 10 years. Flu vaccine is recommended every year just before the start of the flu season. Shingles vaccine is recommended after age 50 but not all insurances cover it. Pneumonia vaccine is given after age 65 unless there are certain comorbidities for which it is started earlier. 7. Diagnostic labs were discussed. These could include CBC CMP and lipids with fasting blood glucose and insulin levels. Vitamin D and hemoglobin A1c testing might be appropriate. Patient is here for a Medicare wellness visit. Complete paperwork was reviewed and updated and has been filed and scan. Depression screen completed. Alcohol AUDIT SCREEN completed. Obesity screen completed. Cardiovascular risk stratification screen completed. Cognition assessed and within reasonable limits Fall risk assessed Discussed healthcare proxy. Discussed [place] order for life sustaining treatment, end-of-life issues, intubation and resuscitation dialysis artificial nutrition and hydration is appropriate. Case was discussed with Dr. Guanakito Reeder. Please note, that there may be dictation errors. All questions were answered to the patient's satisfaction. 04/21/2024 Essential (primary) hypertension (ICD-10 - I10) Emir is a pleasant 74-year-old male who presents today for a 1 month follow-up, patient had a chronic cough at last visit, x-ray was clear of any abnormalities. States that he is overall feeling well, states that he coughs at baseline however is not interested in smoking cessation at this time. # Erythrocytosis: : CBC conducted in June 2023 that showed a red blood cell count of 6.65 and a hemoglobin of 20.9, hematocrit was 60.4 and platelet count of 45. Recent labs on 03/08 CBC showed RBC of 6.17, Hemoglobin of 19.6, hematocrit of 59.3 and platelet count of 70. Patient declined hematology referral placed. Suspect possible secondary polycythemia due to COPD. # Chronic A Fib. On NOAC , Eliquis 5 mg po BID. On Digoxin. Level not obtained. Dig level should be obtained. #Immunzation: Obtained the recommended obtaining the Prevnar 20 vaccine, flu vaccine and COVID booster # Chronic Cough: Suspect underlying COPD. Patient presents the office with a productive white sputum cough for the past month. Spoke to the patient about potential lung cancer surveillance with ordering a CT scan, patient admits he will think about this. At this time a chest x-ray is negative, potential respiratory infections, due to rhonci heard on exam. Patient is to continue to utilize his inhaler daily. # Essential HTN: Patient is to continue taking his losartan. May need to increase Losartan dose, or add on Ca channel ngoc. Cessation with smoking, low salt diet and weight loss would also benefit in antihypertensive treatment # Hyperlipidemia: Only abnormal value found on the labs from 03/08 was an HDL cholesterol of 35. Patient is to continue with his current cholesterol medications that include atorvastatin 40 mg. Will continue to monitor patient and encourage healthier fats in the diet. # Peripheral vascular disease: Patient is to call the office if there are any significant changes to his legs bilaterally. Patient notes that his left lower leg the scar is slowly healing and he applies moisturizer on it daily # Nicotine abuse: Patient has no interest in smoking cessation today. He admits that he continues to smoke 1 pack daily. Will discuss lung cancer surveillance at follow-up as he has been educated on the benefits of performing a CT scan. # Screenings: Declines colon cancer screening All questions have been answered to patient's satisfaction. Patient verbalized understanding of diagnosis and treatments explained. Advised to call sooner prior to next visit it any questions/concerns arise. Case discussed with Vick ALBA who reviewed the assessment and plan. Chart, medications, labs, vital signs reviewed. Dictation was accomplished with the use of [employer] voice recognition software, which is prone to medical misidentifications and grammatical errors. This are unintentional and the practitioner does try to identify and correct these, but some could still be present. Please do not hesitate to contact practitioner for clarification. 10/31/2023 Chronic sinusitis, unspecified (ICD-10 - J32.9) Discussed patien t's labs from 06/2023 with him. For the most part labs are looking good however CBC is showing increased production of RBCs which could be due to primary or secondary polcythemia. We will continue to monitor these levels however should they consider to rise we may have to do more testing or have patient return to doing periodic phlebotomy. Will consult with Dr. Garcia who is a specialist regarding this. Patient states he is otherwise doing ok. We will send in a script for a Sildenafil refill to his pharmacy of choice. F/u in February of 2024. Patient aware and agreeable to assessment and plan. Patient given opportunity to ask any questions. All questions answered to patient's satisfaction. 10/31/2023 Acquired hyperlipoproteinemia (ICD-10 - E78.5) Discussed renay diann's labs from 06/2023 with him. For the most part labs are looking good however CBC is showing increased production of RBCs which could be due to primary or secondary polcythemia. We will continue to monitor these levels however should they consider to rise we may have to do more testing or have patient return to doing periodic phlebotomy. Will consult with Dr. Garcia who is a specialist regarding this. Patient states he is otherwise doing ok. We will send in a script for a Sildenafil refill to his pharmacy of choice. F/u in February of 2024. Patient aware and agreeable to assessment and plan. Patient given opportunity to ask any questions. All questions answered to patient's satisfaction. 03/12/2024 Encounter for screening for other disorder (ICD-10 - Z13.89) Wellness visit: # Erythrocytosis: : CBC conducted in June 2023 that showed a red blood cell count of 6.65 and a hemoglobin of 20.9, hematocrit was 60.4 and platelet count of 45. Recent labs on 03/08 CBC showed RBC of 6.17, Hemoglobin of 19.6, hematocrit of 59.3 and platelet count of 70. Patient declined hematology referral placed. Suspect possible secondary polycythemia due to COPD. # Chronic A Fib. On NOAC , Eliquis 5 mg po BID. On Digoxin. Level not obtained. Will obtain EKG at next visit. Dig level will also be checked. #Immunzation: In office recommended obtaining the Prevnar 20 vaccine, flu vaccine and COVID booster # Chronic Cough: Suspect underlying COPD. Patient presents the office with a productive white sputum cough for the past month. Spoke to the patient about potential lung cancer surveillance with ordering a CT scan, patient admits he will think about this and we will discuss this at follow-up visit in 1 month. At this time a chest x-ray has been ordered to rule out any potential respiratory infections, due to rhonci heard on exam. Will treat accordingly to the chest x-ray results. Patient is to continue to utilize his inhaler daily. # Essential HTN:Blood pressure in office today is 156/76. Patient is to continue taking his losartan, will recheck blood pressure at follow-up visit in 1 month. May need to increase Losartan dose, or add on Ca channel ngoc. Cessation with smoking, low salt diet and weight loss would also benefit in antihypertensive treatment # Hyperlipidemia: Only abnormal value found on the labs from 03/08 was an HDL cholesterol of 35. Patient is to continue with his current cholesterol medications that include atorvastatin 40 mg. Will continue to monitor patient and encourage healthier fats in the diet. # Peripheral vascular disease: Patient is to call the office if there are any significant changes to his legs bilaterally. Patient notes that his left lower leg the scar is slowly healing and he applies moisturizer on it daily # Nicotine abuse: Patient has no interest in smoking cessation today. He admits that he continues to smoke 1 pack daily. Will discuss lung cancer surveillance at follow-up as he has been educated on the benefits of performing a CT scan. # Screenings: Declines colon cancer screening Physical Men Patient seen and examined. Comprehensive discussion was done on the following. 1. Nutrition: It is important to follow a healthy diet based on lots of vegetables and legumes and good fat. Avoid processed food and processed carbohydrates. Learn to prepare your own meals. Learn to read labels and avoid high fructose corn syrup, processed chemicals added to increase shelf life and preprepared meals. Avoid fast foods. Learn to eat slowly and plan meals for a week. Try to count calories and be mindful off daily calorie intake. Get into the habit of keeping an eye on your weight by using an appropriate scale. Learn to log exercise and discussed fitness Apps like [employer] which can help keep log off calories taken versus calories burned. Local food should be preferred. Discussed [employer]. Discussed healthy supplements like fish oil, Tumeric, Curcumin, Melatonin, Resveratrol, Probiotics, Vitamin-D, Alpha-Lipoic acid, Vitamin-D and coconut oil. 2. It is important to exercise regularly. Is a good habit to walk at least 30-45 minutes a day. Gentle weightlifting with standard precautions to protect the back. Finding activity like cycling or hiking and get into the habit of engaging in it. Stretching before and after the exercises important. It is also important to contact me if there are any problems like shortness of breath, chest pain, back pain and joint or muscle pain associated with the exercise. 3. Discussed age appropriate screening guidelines. Colonoscopy needs to start at age 50 with stool for occult blood as appropriate. There is a new test that can test for genetic abnormalities in the stool sample. This would not replace a colonoscopy but could be used as a screening tool for patients who do not want a colonoscopy. We discussed the importance of early detection of colon cancer. 4. Discussed current PSA screening. PSA screening can be done in most patients between age 50 and 65. However early detection of prostate cancer needs to carefully be balanced with complications with treatment. These include incontinence, impotence etc. Each patient should decide if they would like to have this test. 5. Discussed safe driving and no use of smart phone while driving 6. Age-appropriate immunizations were discussed. A tetanus booster is needed every 10 years. Flu vaccine is recommended every year just before the start of the flu season. Shingles vaccine is recommended after age 50 but not all insurances cover it. Pneumonia vaccine is given after age 65 unless there are certain comorbidities for which it is started earlier. 7. Diagnostic labs were discussed. These could include CBC CMP and lipids with fasting blood glucose and insulin levels. Vitamin D and hemoglobin A1c testing might be appropriate. Patient is here for a Medicare wellness visit. Complete paperwork was reviewed and updated and has been filed and scan. Depression screen completed. Alcohol AUDIT SCREEN completed. Obesity screen completed. Cardiovascular risk stratification screen completed. Cognition assessed and within reasonable limits Fall risk assessed Discussed healthcare proxy. Discussed [place] order for life sustaining treatment, end-of-life issues, intubation and resuscitation dialysis artificial nutrition and hydration is appropriate. Case was discussed with Dr. Guanakito Reeder. Please note, that there may be dictation errors. All questions were answered to the patient's satisfaction. 04/21/2024 Heart failure, unspecified (ICD-10 - I50.9) Emir is a pleasant 74-year-old male who presents today for a 1 month follow-up, patient had a chronic cough at last visit, x-ray was clear of any abnormalities. States that he is overall feeling well, states that he coughs at baseline however is not interested in smoking cessation at this time. # Erythrocytosis: : CBC conducted in June 2023 that showed a red blood cell count of 6.65 and a hemoglobin of 20.9, hematocrit was 60.4 and platelet count of 45. Recent labs on 03/08 CBC showed RBC of 6.17, Hemoglobin of 19.6, hematocrit of 59.3 and platelet count of 70. Patient declined hematology referral placed. Suspect possible secondary polycythemia due to COPD. # Chronic A Fib. On NOAC , Eliquis 5 mg po BID. On Digoxin. Level not obtained. Dig level should be obtained. #Immunzation: Obtained the recommended obtaining the Prevnar 20 vaccine, flu vaccine and COVID booster # Chronic Cough: Suspect underlying COPD. Patient presents the office with a productive white sputum cough for the past month. Spoke to the patient about potential lung cancer surveillance with ordering a CT scan, patient admits he will think about this. At this time a chest x-ray is negative, potential respiratory infections, due to rhonci heard on exam. Patient is to continue to utilize his inhaler daily. # Essential HTN: Patient is to continue taking his losartan. May need to increase Losartan dose, or add on Ca channel ngoc. Cessation with smoking, low salt diet and weight loss would also benefit in antihypertensive treatment # Hyperlipidemia: Only abnormal value found on the labs from 03/08 was an HDL cholesterol of 35. Patient is to continue with his current cholesterol medications that include atorvastatin 40 mg. Will continue to monitor patient and encourage healthier fats in the diet. # Peripheral vascular disease: Patient is to call the office if there are any significant changes to his legs bilaterally. Patient notes that his left lower leg the scar is slowly healing and he applies moisturizer on it daily # Nicotine abuse: Patient has no interest in smoking cessation today. He admits that he continues to smoke 1 pack daily. Will discuss lung cancer surveillance at follow-up as he has been educated on the benefits of performing a CT scan. # Screenings: Declines colon cancer screening All questions have been answered to patient's satisfaction. Patient verbalized understanding of diagnosis and treatments explained. Advised to call sooner prior to next visit it any questions/concerns arise. Case discussed with Vick ALBA who reviewed the assessment and plan. Chart, medications, labs, vital signs reviewed. 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 #vascular surgery note from [facility]: Date of service 08/12/2020, plan stated [...] hematology note: Patient was last seen by [facility] hematology on 07/30/2019, this states that [...] switched to apixaban. 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 This are unintentional and the practitioner does try to identify and correct these, but some could still be present. Please do not hesitate to contact practitioner for clarification. 07/15/2024 Cough (ICD-10 - R05.9) Emir is a pleasant 74-year-old male who presents today for a follow up. #Diabetes: Metformin 500 BID added to regimen today #Recent hematology note: 74-year-old male with erythrocytosis last seen in our office in 2019. Patient states he used to have phlebotomy, stopped going for 5 years ago. Smokes a pack of cigarettes a day, has asthma, question COPD, has inhalers but does not use them. Patient did have a CT of the abdomen and pelvis with IV contrast on June 18, 2024 that demonstrated spleen is normal in size and appearance, possible aneurysmal dilation of the left circumflex coronary artery, correlation with cardiac imaging is suggested. The overall assessment was to order a carboxyhemoglobin, CBC with differential,'s citrated platelet count, JAK2, reticulocyte count. Plan is to obtain lab work, patient [facility], obtaining smear for further evaluation of thrombocytopenia. 3-month follow-up recommended. # Erythrocytosis: : CBC conducted in June 2023 that showed a red blood cell count of 6.65 and a hemoglobin of 20.9, hematocrit was 60.4 and platelet count of 45. Recent labs on 03/08 CBC showed RBC of 6.17, Hemoglobin of 19.6, hematocrit of 59.3 and platelet count of 70. # Chronic A Fib. On NOAC , Eliquis 5 mg po BID. On Digoxin, Digoxin level should be obtained. #Immunzation: Obtained the recommended obtaining the Prevnar 20 vaccine, flu vaccine and COVID booster # Chronic Cough: Suspect underlying COPD. Patient presents the office with a productive white sputum cough for the past month. Spoke to the patient about potential lung cancer surveillance with ordering a CT scan, patient admits he will think about this. At this time a chest x-ray is negative, potential respiratory infections, due to rhonci heard on exam. Patient is to continue to utilize his inhaler daily. # Essential HTN: Patient is to continue taking his losartan. May need to increase Losartan dose, or add on Ca channel ngoc. Cessation with smoking, low salt diet and weight loss would also benefit in antihypertensive treatment # Hyperlipidemia: Only abnormal value found on the labs from 03/08 was an HDL cholesterol of 35. Patient is to continue with his current cholesterol medications that include atorvastatin 40 mg. Will continue to monitor patient and encourage healthier fats in the diet. # Peripheral vascular disease: Patient is to call the office if there are any significant changes to his legs bilaterally. Patient notes that his left lower leg the scar is slowly healing and he applies moisturizer on it daily # Nicotine abuse: Patient has no interest in smoking cessation today. He admits that he continues to smoke 1 pack daily. Will discuss lung cancer surveillance at follow-up as he has been educated on the benefits of performing a CT scan. # Screenings: Declines colon cancer screening All questions have been answered to patient's satisfaction. Patient verbalized understanding of diagnosis and treatments explained. Advised to call sooner prior to next visit it any questions/concerns arise. Case discussed with Vick ALBA who reviewed the assessment and plan. Chart, medications, labs, vital signs reviewed. Dictation was accomplished with the use of [employer] voice recognition software, which is prone to medical misidentifications and grammatical errors. This are unintentional and the practitioner does try to identify and correct these, but some could still be present. Please do not hesitate to contact practitioner for clarification. 07/15/2024 Essential (primary) hypertension (ICD-10 - I10) Emir is a pleasant 74-year-old male who presents today for a follow up. #Diabetes: Metformin 500 BID added to regimen today #Recent hematology note: 74-year-old male with erythrocytosis last seen in our office in 2019. Patient states he used to have phlebotomy, stopped going for 5 years ago. Smokes a pack of cigarettes a day, has asthma, question COPD, has inhalers but does not use them. Patient did have a CT of the abdomen and pelvis with IV contrast on June 18, 2024 that demonstrated spleen is normal in size and appearance, possible aneurysmal dilation of the left circumflex coronary artery, correlation with cardiac imaging is suggested. The overall assessment was to order a carboxyhemoglobin, CBC with differential,'s citrated platelet count, JAK2, reticulocyte count. Plan is to obtain lab work, patient will start phlebotomy at [facility], obtaining smear for further evaluation of thrombocytopenia. 3-month follow-up recommended. # Erythrocytosis: : CBC conducted in June 2023 that showed a red blood cell count of 6.65 and a hemoglobin of 20.9, hematocrit was 60.4 and platelet count of 45. Recent labs on 03/08 CBC showed RBC of 6.17, Hemoglobin of 19.6, hematocrit of 59.3 and platelet count of 70. # Chronic A Fib. On NOAC , Eliquis 5 mg po BID. On Digoxin, Digoxin level should be obtained. #Immunzation: Obtained the recommended obtaining the Prevnar 20 vaccine, flu vaccine and COVID booster # Chronic Cough: Suspect underlying COPD. Patient presents the office with a productive white sputum cough for the past month. Spoke to the patient about potential lung cancer surveillance with ordering a CT scan, patient admits he will think about this. At this time a chest x-ray is negative, potential respiratory infections, due to rhonci heard on exam. Patient is to continue to utilize his inhaler daily. # Essential HTN: Patient is to continue taking his losartan. May need to increase Losartan dose, or add on Ca channel ngoc. Cessation with smoking, low salt diet and weight loss would also benefit in antihypertensive treatment # Hyperlipidemia: Only abnormal value found on the labs from 03/08 was an HDL cholesterol of 35. Patient is to continue with his current cholesterol medications that include atorvastatin 40 mg. Will continue to monitor patient and encourage healthier fats in the diet. # Peripheral vascular disease: Patient is to call the office if there are any significant changes to his legs bilaterally. Patient notes that his left lower leg the scar is slowly healing and he applies moisturizer on it daily # Nicotine abuse: Patient has no interest in smoking cessation today. He admits that he continues to smoke 1 pack daily. Will discuss lung cancer surveillance at follow-up as he has been educated on the benefits of performing a CT scan. # Screenings: Declines colon cancer screening All questions have been answered to patient's satisfaction. Patient verbalized understanding of diagnosis and treatments explained. Advised to call sooner prior to next visit it any questions/concerns arise. Case discussed with Vick ALBA who reviewed the assessment and plan. Chart, medications, labs, vital signs reviewed. 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 #vascular surgery note from [facility]: Date of service 08/12/2020, plan stated [...] hematology note: Patient was last seen by [facility] hematology on 07/30/2019, this states that [...] Dictation was accomplished with the use of [employer] voice recognition software, which is prone to medical misidentifications and grammatical errors. This are unintentional and the practitioner does try to identify and correct these, but some could still be present. Please do not hesitate to contact practitioner for clarification. 03/12/2024 Advance care planbritney gianna (ICD-10 - Z71.89) Wellness visit: # Erythrocytosis: : CBC conducted in June 2023 that showed a red blood cell count of 6.65 and a hemoglobin of 20.9, hematocrit was 60.4 and platelet count of 45. Recent labs on 03/08 CBC showed RBC of 6.17, Hemoglobin of 19.6, hematocrit of 59.3 and platelet count of 70. Patient declined hematology referral placed. Suspect possible secondary polycythemia due to COPD. # Chronic A Fib. On NOAC , Eliquis 5 mg po BID. On Digoxin. Level not obtained. Will obtain EKG at next visit. Dig level will also be checked. #Immunzation: In office recommended obtaining the Prevnar 20 vaccine, flu vaccine and COVID booster # Chronic Cough: Suspect underlying COPD. Patient presents the office with a productive white sputum cough for the past month. Spoke to the patient about potential lung cancer surveillance with ordering a CT scan, patient admits he will think about this and we will discuss this at follow-up visit in 1 month. At this time a chest x-ray has been ordered to rule out any potential respiratory infections, due to rhonci heard on exam. Will treat accordingly to the chest x-ray results. Patient is to continue to utilize his inhaler daily. # Essential HTN:Blood pressure in office today is 156/76. Patient is to continue taking his losartan, will recheck blood pressure at follow-up visit in 1 month. May need to increase Losartan dose, or add on Ca channel ngoc. Cessation with smoking, low salt diet and weight loss would also benefit in antihypertensive treatment # Hyperlipidemia: Only abnormal value found on the labs from 03/08 was an HDL cholesterol of 35. Patient is to continue with his current cholesterol medications that include atorvastatin 40 mg. Will continue to monitor patient and encourage healthier fats in the diet. # Peripheral vascular disease: Patient is to call the office if there are any significant changes to his legs bilaterally. Patient notes that his left lower leg the scar is slowly healing and he applies moisturizer on it daily # Nicotine abuse: Patient has no interest in smoking cessation today. He admits that he continues to smoke 1 pack daily. Will discuss lung cancer surveillance at follow-up as he has been educated on the benefits of performing a CT scan. # Screenings: Declines colon cancer screening Physical Men Patient seen and examined. Comprehensive discussion was done on the following. 1. Nutrition: It is important to follow a healthy diet based on lots of vegetables and legumes and good fat. Avoid processed food and processed carbohydrates. Learn to prepare your own meals. Learn to read labels and avoid high fructose corn syrup, processed chemicals added to increase shelf life and preprepared meals. Avoid fast foods. Learn to eat slowly and plan meals for a week. Try to count calories and be mindful off daily calorie intake. Get into the habit of keeping an eye on your weight by using an appropriate scale. Learn to log exercise and discussed fitness Apps like [employer] which can help keep log off calories taken versus calories burned. Local food should be preferred. Discussed Dirty Dozen Versus Clean Fifteen. Discussed healthy supplements like fish oil, Tumeric, Curcumin, Melatonin, Resveratrol, Probiotics, Vitamin-D, Alpha-Lipoic acid, Vitamin-D and coconut oil. 2. It is important to exercise regularly. Is a good habit to walk at least 30-45 minutes a day. Gentle weightlifting with standard precautions to protect the back. Finding activity like cycling or hiking and get into the habit of engaging in it. Stretching before and after the exercises important. It is also important to contact me if there are any problems like shortness of breath, chest pain, back pain and joint or muscle pain associated with the exercise. 3. Discussed age appropriate screening guidelines. Colonoscopy needs to start at age 50 with stool for occult blood as appropriate. There is a new test that can test for genetic abnormalities in the stool sample. This would not replace a colonoscopy but could be used as a screening tool for patients who do not want a colonoscopy. We discussed the importance of early detection of colon cancer. 4. Discussed current PSA screening. PSA screening can be done in most patients between age 50 and 65. However early detection of prostate cancer needs to carefully be balanced with complications with treatment. These include incontinence, impotence etc. Each patient should decide if they would like to have this test. 5. Discussed safe driving and no use of smart phone while driving 6. Age-appropriate immunizations were discussed. A tetanus booster is needed every 10 years. Flu vaccine is recommended every year just before the start of the flu season. Shingles vaccine is recommended after age 50 but not all insurances cover it. Pneumonia vaccine is given after age 65 unless there are certain comorbidities for which it is started earlier. 7. Diagnostic labs were discussed. These could include CBC CMP and lipids with fasting blood glucose and insulin levels. Vitamin D and hemoglobin A1c testing might be appropriate. Patient is here for a Medicare wellness visit. Complete paperwork was reviewed and updated and has been filed and scan. Depression screen completed. Alcohol AUDIT SCREEN completed. Obesity screen completed. Cardiovascular risk stratification screen completed. Cognition assessed and within reasonable limits Fall risk assessed Discussed healthcare proxy. Discussed [place] order for life sustaining treatment, end-of-life issues, intubation and resuscitation dialysis artificial nutrition and hydration is appropriate. Case was discussed with Dr. Guanakito Reeder. Please note, that there may be dictation errors. All questions were answered to the patient's satisfaction. 10/31/2023 Heart failure, unspecified (ICD-10 - I50.9) Discussed víctor peralta's labs from 06/2023 with him. For the most part labs are looking good however CBC is showing increased production of RBCs which could be due to primary or secondary polcythemia. We will continue to monitor these levels however should they consider to rise we may have to do more testing or have patient return to doing periodic phlebotomy. Will consult with Dr. Garcia who is a specialist regarding this. Patient states he is otherwise doing ok. We will send in a script for a Sildenafil refill to his pharmacy of choice. F/u in February of 2024. Patient aware and agreeable to assessment and plan. Patient given opportunity to ask any questions. All questions answered to patient's satisfaction. 03/12/2024 Paroxysmal atrial fibrillation (ICD-10 - I48.0) Wellness visit: # Erythrocytosis: : CBC conducted in June 2023 that showed a red blood cell count of 6.65 and a hemoglobin of 20.9, hematocrit was 60.4 and platelet count of 45. Recent labs on 03/08 CBC showed RBC of 6.17, Hemoglobin of 19.6, hematocrit of 59.3 and platelet count of 70. Patient declined hematology referral placed. Suspect possible secondary polycythemia due to COPD. # Chronic A Fib. On NOAC , Eliquis 5 mg po BID. On Digoxin. Level not obtained. Will obtain EKG at next visit. Dig level will also be checked. #Immunzation: In office recommended obtaining the Prevnar 20 vaccine, flu vaccine and COVID booster # Chronic Cough: Suspect underlying COPD. Patient presents the office with a productive white sputum cough for the past month. Spoke to the patient about potential lung cancer surveillance with ordering a CT scan, patient admits he will think about this and we will discuss this at follow-up visit in 1 month. At this time a chest x-ray has been ordered to rule out any potential respiratory infections, due to rhonci heard on exam. Will treat accordingly to the chest x-ray results. Patient is to continue to utilize his inhaler daily. # Essential HTN:Blood pressure in office today is 156/76. Patient is to continue taking his losartan, will recheck blood pressure at follow-up visit in 1 month. May need to increase Losartan dose, or add on Ca channel ngoc. Cessation with smoking, low salt diet and weight loss would also benefit in antihypertensive treatment # Hyperlipidemia: Only abnormal value found on the labs from 03/08 was an HDL cholesterol of 35. Patient is to continue with his current cholesterol medications that include atorvastatin 40 mg. Will continue to monitor patient and encourage healthier fats in the diet. # Peripheral vascular disease: Patient is to call the office if there are any significant changes to his legs bilaterally. Patient notes that his left lower leg the scar is slowly healing and he applies moisturizer on it daily # Nicotine abuse: Patient has no interest in smoking cessation today. He admits that he continues to smoke 1 pack daily. Will discuss lung cancer surveillance at follow-up as he has been educated on the benefits of performing a CT scan. # Screenings: Declines colon cancer screening Physical Men Patient seen and examined. Comprehensive discussion was done on the following. 1. Nutrition: It is important to follow a healthy diet based on lots of vegetables and legumes and good fat. Avoid processed food and processed carbohydrates. Learn to prepare your own meals. Learn to read labels and avoid high fructose corn syrup, processed chemicals added to increase shelf life and preprepared meals. Avoid fast foods. Learn to eat slowly and plan meals for a week. Try to count calories and be mindful off daily calorie intake. Get into the habit of keeping an eye on your weight by using an appropriate scale. Learn to log exercise and discussed fitness Apps like [employer] which can help keep log off calories taken versus calories burned. Local food should be preferred. Discussed Dirty Dozen Versus Clean Fifteen. Discussed healthy supplements like fish oil, Tumeric, Curcumin, Melatonin, Resveratrol, Probiotics, Vitamin-D, Alpha-Lipoic acid, Vitamin-D and coconut oil. 2. It is important to exercise regularly. Is a good habit to walk at least 30-45 minutes a day. Gentle weightlifting with standard precautions to protect the back. Finding activity like cycling or hiking and get into the habit of engaging in it. Stretching before and after the exercises important. It is also important to contact me if there are any problems like shortness of breath, chest pain, back pain and joint or muscle pain associated with the exercise. 3. Discussed age appropriate screening guidelines. Colonoscopy needs to start at age 50 with stool for occult blood as appropriate. There is a new test that can test for genetic abnormalities in the stool sample. This would not replace a colonoscopy but could be used as a screening tool for patients who do not want a colonoscopy. We discussed the importance of early detection of colon cancer. 4. Discussed current PSA screening. PSA screening can be done in most patients between age 50 and 65. However early detection of prostate cancer needs to carefully be balanced with complications with treatment. These include incontinence, impotence etc. Each patient should decide if they would like to have this test. 5. Discussed safe driving and no use of smart phone while driving 6. Age-appropriate immunizations were discussed. A tetanus booster is needed every 10 years. Flu vaccine is recommended every year just before the start of the flu season. Shingles vaccine is recommended after age 50 but not all insurances cover it. Pneumonia vaccine is given after age 65 unless there are certain comorbidities for which it is started earlier. 7. Diagnostic labs were discussed. These could include CBC CMP and lipids with fasting blood glucose and insulin levels. Vitamin D and hemoglobin A1c testing might be appropriate. Patient is here for a Medicare wellness visit. Complete paperwork was reviewed and updated and has been filed and scan. Depression screen completed. Alcohol AUDIT SCREEN completed. Obesity screen completed. Cardiovascular risk stratification screen completed. Cognition assessed and within reasonable limits Fall risk assessed Discussed healthcare proxy. Discussed [place] order for life sustaining treatment, end-of-life issues, intubation and resuscitation dialysis artificial nutrition and hydration is appropriate. Case was discussed with Dr. Guanakito Reeder. Please note, that there may be dictation errors. All questions were answered to the patient's satisfaction. 10/31/2023 Type 2 diabetes mellitus with complication, unspecified whether intermodal dispatcher insulin use (ICD-10 - E11.8) Discussed renay diann's labs from 06/2023 with him. For the most part labs are looking good however CBC is showing increased production of RBCs which could be due to primary or secondary polcythemia. We will continue to monitor these levels however should they consider to rise we may have to do more testing or have patient return to doing periodic phlebotomy. Will consult with Dr. Garcia who is a specialist regarding this. Patient states he is otherwise doing ok. We will send in a script for a Sildenafil refill to his pharmacy of choice. F/u in February of 2024. Patient aware and agreeable to assessment and plan. Patient given opportunity to ask any questions. All questions answered to patient's satisfaction. 05/15/2024 Erythrocytosis (ICD- 10 - D75.1) Emir is a pleasant 74-year-old medically complex male who presents via telehealth in regards to his abnormal lab results that were ordered by , a hand surgeon. #vascular surgery note from [facility]: Date of service 08/12/2020, plan stated [...] hematology note: Patient was last seen by [facility] hematology on 07/30/2019, this states that [...] Dictation was accomplished with the use of [employer] voice recognition software, which is prone to medical misidentifications and grammatical errors. This are unintentional and the practitioner does try to identify and correct these, but some could still be present. Please do not hesitate to contact practitioner for clarification. 07/15/2024 Heart failure, unspecified (ICD-10 - I50.9) Emir is a pleasant 74-year-old male who presents today for a follow up. #Diabetes: Metformin 500 BID added to regimen today #Recent hematology note: 74-year-old male with erythrocytosis last seen in our office in 2019. Patient states he used to have phlebotomy, stopped going for 5 years ago. Smokes a pack of cigarettes a day, has asthma, question COPD, has inhalers but does not use them. Patient did have a CT of the abdomen and pelvis with IV contrast on June 18, 2024 that demonstrated spleen is normal in size and appearance, possible aneurysmal dilation of the left circumflex coronary artery, correlation with cardiac imaging is suggested. The overall assessment was to order a carboxyhemoglobin, CBC with differential,'s citrated platelet count, JAK2, reticulocyte count. Plan is to obtain lab work, patient will start phlebotomy at point of hospital, obtaining smear for further evaluation of thrombocytopenia. 3-month follow-up recommended. # Erythrocytosis: : CBC conducted in June 2023 that showed a red blood cell count of 6.65 and a hemoglobin of 20.9, hematocrit was 60.4 and platelet count of 45. Recent labs on 03/08 CBC showed RBC of 6.17, Hemoglobin of 19.6, hematocrit of 59.3 and platelet count of 70. # Chronic A Fib. On NOAC , Eliquis 5 mg po BID. On Digoxin, Digoxin level should be obtained. #Immunzation: Obtained the recommended obtaining the Prevnar 20 vaccine, flu vaccine and COVID booster # Chronic Cough: Suspect underlying COPD. Patient presents the office with a productive white sputum cough for the past month. Spoke to the patient about potential lung cancer surveillance with ordering a CT scan, patient admits he will think about this. At this time a chest x-ray is negative, potential respiratory infections, due to rhonci heard on exam. Patient is to continue to utilize his inhaler daily. # Essential HTN: Patient is to continue taking his losartan. May need to increase Losartan dose, or add on Ca channel ngoc. Cessation with smoking, low salt diet and weight loss would also benefit in antihypertensive treatment # Hyperlipidemia: Only abnormal value found on the labs from 03/08 was an HDL cholesterol of 35. Patient is to continue with his current cholesterol medications that include atorvastatin 40 mg. Will continue to monitor patient and encourage healthier fats in the diet. # Peripheral vascular disease: Patient is to call the office if there are any significant changes to his legs bilaterally. Patient notes that his left lower leg the scar is slowly healing and he applies moisturizer on it daily # Nicotine abuse: Patient has no interest in smoking cessation today. He admits that he continues to smoke 1 pack daily. Will discuss lung cancer surveillance at follow-up as he has been educated on the benefits of performing a CT scan. # Screenings: Declines colon cancer screening All questions have been answered to patient's satisfaction. Patient verbalized understanding of diagnosis and treatments explained. Advised to call sooner prior to next visit it any questions/concerns arise. Case discussed with Vick ALBA who reviewed the assessment and plan. Chart, medications, labs, vital signs reviewed. Dictation was accomplished with the use of [employer] voice recognition software, which is prone to medical misidentifications and grammatical errors. This are unintentional and the practitioner does try to identify and correct these, but some could still be present. Please do not hesitate to contact practitioner for clarification. 05/15/2024 Mixed hyperlipidemia (ICD-10 - E78.2) Eimr is a pleasant 74-year-old medically complex male who presents via telehealth in regards to his abnormal lab results that were ordered by , a hand surgeon. #vascular surgery note from [facility]: Date of service 08/12/2020, plan stated [...] hematology note: Patient was last seen by [facility] hematology on 07/30/2019, this states that [...] Dictation was accomplished with the use of [employer] voice recognition software, which is prone to medical misidentifications and grammatical errors. This are unintentional and the practitioner does try to identify and correct these, but some could still be present. Please do not hesitate to contact practitioner for clarification. 03/12/2024 Essential (primary) hypertension (ICD-10 - I10) Wellness visit: # Erythrocytosis: : CBC conducted in June 2023 that showed a red blood cell count of 6.65 and a hemoglobin of 20.9, hematocrit was 60.4 and platelet count of 45. Recent labs on 03/08 CBC showed RBC of 6.17, Hemoglobin of 19.6, hematocrit of 59.3 and platelet count of 70. Patient declined hematology referral placed. Suspect possible secondary polycythemia due to COPD. # Chronic A Fib. On NOAC , Eliquis 5 mg po BID. On Digoxin. Level not obtained. Will obtain EKG at next visit. Dig level will also be checked. #Immunzation: In office recommended obtaining the Prevnar 20 vaccine, flu vaccine and COVID booster # Chronic Cough: Suspect underlying COPD. Patient presents the office with a productive white sputum cough for the past month. Spoke to the patient about potential lung cancer surveillance with ordering a CT scan, patient admits he will think about this and we will discuss this at follow-up visit in 1 month. At this time a chest x-ray has been ordered to rule out any potential respiratory infections, due to rhonci heard on exam. Will treat accordingly to the chest x-ray results. Patient is to continue to utilize his inhaler daily. # Essential HTN:Blood pressure in office today is 156/76. Patient is to continue taking his losartan, will recheck blood pressure at follow-up visit in 1 month. May need to increase Losartan dose, or add on Ca channel ngoc. Cessation with smoking, low salt diet and weight loss would also benefit in antihypertensive treatment # Hyperlipidemia: Only abnormal value found on the labs from 03/08 was an HDL cholesterol of 35. Patient is to continue with his current cholesterol medications that include atorvastatin 40 mg. Will continue to monitor patient and encourage healthier fats in the diet. # Peripheral vascular disease: Patient is to call the office if there are any significant changes to his legs bilaterally. Patient notes that his left lower leg the scar is slowly healing and he applies moisturizer on it daily # Nicotine abuse: Patient has no interest in smoking cessation today. He admits that he continues to smoke 1 pack daily. Will discuss lung cancer surveillance at follow-up as he has been educated on the benefits of performing a CT scan. # Screenings: Declines colon cancer screening Physical Men Patient seen and examined. Comprehensive discussion was done on the following. 1. Nutrition: It is important to follow a healthy diet based on lots of vegetables and legumes and good fat. Avoid processed food and processed carbohydrates. Learn to prepare your own meals. Learn to read labels and avoid high fructose corn syrup, processed chemicals added to increase shelf life and preprepared meals. Avoid fast foods. Learn to eat slowly and plan meals for a week. Try to count calories and be mindful off daily calorie intake. Get into the habit of keeping an eye on your weight by using an appropriate scale. Learn to log exercise and discussed fitness Apps like [employer] which can help keep log off calories taken versus calories burned. Local food should be preferred. Discussed Dirty Dozen Versus Clean Fifteen. Discussed healthy supplements like fish oil, Tumeric, Curcumin, Melatonin, Resveratrol, Probiotics, Vitamin-D, Alpha-Lipoic acid, Vitamin-D and coconut oil. 2. It is important to exercise regularly. Is a good habit to walk at least 30-45 minutes a day. Gentle weightlifting with standard precautions to protect the back. Finding activity like cycling or hiking and get into the habit of engaging in it. Stretching before and after the exercises important. It is also important to contact me if there are any problems like shortness of breath, chest pain, back pain and joint or muscle pain associated with the exercise. 3. Discussed age appropriate screening guidelines. Colonoscopy needs to start at age 50 with stool for occult blood as appropriate. There is a new test that can test for genetic abnormalities in the stool sample. This would not replace a colonoscopy but could be used as a screening tool for patients who do not want a colonoscopy. We discussed the importance of early detection of colon cancer. 4. Discussed current PSA screening. PSA screening can be done in most patients between age 50 and 65. However early detection of prostate cancer needs to carefully be balanced with complications with treatment. These include incontinence, impotence etc. Each patient should decide if they would like to have this test. 5. Discussed safe driving and no use of smart phone while driving 6. Age-appropriate immunizations were discussed. A tetanus booster is needed every 10 years. Flu vaccine is recommended every year just before the start of the flu season. Shingles vaccine is recommended after age 50 but not all insurances cover it. Pneumonia vaccine is given after age 65 unless there are certain comorbidities for which it is started earlier. 7. Diagnostic labs were discussed. These could include CBC CMP and lipids with fasting blood glucose and insulin levels. Vitamin D and hemoglobin A1c testing might be appropriate. Patient is here for a Medicare wellness visit. Complete paperwork was reviewed and updated and has been filed and scan. Depression screen completed. Alcohol AUDIT SCREEN completed. Obesity screen completed. Cardiovascular risk stratification screen completed. Cognition assessed and within reasonable limits Fall risk assessed Discussed healthcare proxy. Discussed [place] order for life sustaining treatment, end-of-life issues, intubation and resuscitation dialysis artificial nutrition and hydration is appropriate. Case was discussed with Dr. Guanakito Reeder. Please note, that there may be dictation errors. All questions were answered to the patient's satisfaction. 10/31/2023 Cough (ICD-10 - R05) Discussed patient's labs from 06/2023 with him. For the most part labs are looking good however CBC is showing increased production of RBCs which could be due to primary or secondary polcythemia. We will continue to monitor these levels however should they consider to rise we may have to do more testing or have patient return to doing periodic phlebotomy. Will consult with Dr. Garcia who is a specialist regarding this. Patient states he is otherwise doing ok. We will send in a script for a Sildenafil refill to his pharmacy of choice. F/u in February of 2024. Patient aware and agreeable to assessment and plan. Patient given opportunity to ask any questions. All questions answered to patient's satisfaction. 10/31/2023 Cigarette nicotine dependence with nicotine-induced disorder (ICD-10 - F17.219) Discussed patien t's labs from 06/2023 with him. For the most part labs are looking good however CBC is showing increased production of RBCs which could be due to primary or secondary polcythemia. We will continue to monitor these levels however should they consider to rise we may have to do more testing or have patient return to doing periodic phlebotomy. Will consult with Dr. Garcia who is a specialist regarding this. Patient states he is otherwise doing ok. We will send in a script for a Sildenafil refill to his pharmacy of choice. F/u in February of 2024. Patient aware and agreeable to assessment and plan. Patient given opportunity to ask any questions. All questions answered to patient's satisfaction. 03/12/2024 Heart failure, unspecified (ICD-10 - I50.9) Wellness visit: # Erythrocytosis: : CBC conducted in June 2023 that showed a red blood cell count of 6.65 and a hemoglobin of 20.9, hematocrit was 60.4 and platelet count of 45. Recent labs on 03/08 CBC showed RBC of 6.17, Hemoglobin of 19.6, hematocrit of 59.3 and platelet count of 70. Patient declined hematology referral placed. Suspect possible secondary polycythemia due to COPD. # Chronic A Fib. On NOAC , Eliquis 5 mg po BID. On Digoxin. Level not obtained. Will obtain EKG at next visit. Dig level will also be checked. #Immunzation: In office recommended obtaining the Prevnar 20 vaccine, flu vaccine and COVID booster # Chronic Cough: Suspect underlying COPD. Patient presents the office with a productive white sputum cough for the past month. Spoke to the patient about potential lung cancer surveillance with ordering a CT scan, patient admits he will think about this and we will discuss this at follow-up visit in 1 month. At this time a chest x-ray has been ordered to rule out any potential respiratory infections, due to rhonci heard on exam. Will treat accordingly to the chest x-ray results. Patient is to continue to utilize his inhaler daily. # Essential HTN:Blood pressure in office today is 156/76. Patient is to continue taking his losartan, will recheck blood pressure at follow-up visit in 1 month. May need to increase Losartan dose, or add on Ca channel ngoc. Cessation with smoking, low salt diet and weight loss would also benefit in antihypertensive treatment # Hyperlipidemia: Only abnormal value found on the labs from 03/08 was an HDL cholesterol of 35. Patient is to continue with his current cholesterol medications that include atorvastatin 40 mg. Will continue to monitor patient and encourage healthier fats in the diet. # Peripheral vascular disease: Patient is to call the office if there are any significant changes to his legs bilaterally. Patient notes that his left lower leg the scar is slowly healing and he applies moisturizer on it daily # Nicotine abuse: Patient has no interest in smoking cessation today. He admits that he continues to smoke 1 pack daily. Will discuss lung cancer surveillance at follow-up as he has been educated on the benefits of performing a CT scan. # Screenings: Declines colon cancer screening Physical Men Patient seen and examined. Comprehensive discussion was done on the following. 1. Nutrition: It is important to follow a healthy diet based on lots of vegetables and legumes and good fat. Avoid processed food and processed carbohydrates. Learn to prepare your own meals. Learn to read labels and avoid high fructose corn syrup, processed chemicals added to increase shelf life and preprepared meals. Avoid fast foods. Learn to eat slowly and plan meals for a week. Try to count calories and be mindful off daily calorie intake. Get into the habit of keeping an eye on your weight by using an appropriate scale. Learn to log exercise and discussed fitness Apps like [employer] which can help keep log off calories taken versus calories burned. Local food should be preferred. Discussed Dirty Dozen Versus Clean Fifteen. Discussed healthy supplements like fish oil, Tumeric, Curcumin, Melatonin, Resveratrol, Probiotics, Vitamin-D, Alpha-Lipoic acid, Vitamin-D and coconut oil. 2. It is important to exercise regularly. Is a good habit to walk at least 30-45 minutes a day. Gentle weightlifting with standard precautions to protect the back. Finding activity like cycling or hiking and get into the habit of engaging in it. Stretching before and after the exercises important. It is also important to contact me if there are any problems like shortness of breath, chest pain, back pain and joint or muscle pain associated with the exercise. 3. Discussed age appropriate screening guidelines. Colonoscopy needs to start at age 50 with stool for occult blood as appropriate. There is a new test that can test for genetic abnormalities in the stool sample. This would not replace a colonoscopy but could be used as a screening tool for patients who do not want a colonoscopy. We discussed the importance of early detection of colon cancer. 4. Discussed current PSA screening. PSA screening can be done in most patients between age 50 and 65. However early detection of prostate cancer needs to carefully be balanced with complications with treatment. These include incontinence, impotence etc. Each patient should decide if they would like to have this test. 5. Discussed safe driving and no use of smart phone while driving 6. Age-appropriate immunizations were discussed. A tetanus booster is needed every 10 years. Flu vaccine is recommended every year just before the start of the flu season. Shingles vaccine is recommended after age 50 but not all insurances cover it. Pneumonia vaccine is given after age 65 unless there are certain comorbidities for which it is started earlier. 7. Diagnostic labs were discussed. These could include CBC CMP and lipids with fasting blood glucose and insulin levels. Vitamin D and hemoglobin A1c testing might be appropriate. Patient is here for a Medicare wellness visit. Complete paperwork was reviewed and updated and has been filed and scan. Depression screen completed. Alcohol AUDIT SCREEN completed. Obesity screen completed. Cardiovascular risk stratification screen completed. Cognition assessed and within reasonable limits Fall risk assessed Discussed healthcare proxy. Discussed [place] order for life sustaining treatment, end-of-life issues, intubation and resuscitation dialysis artificial nutrition and hydration is appropriate. Case was discussed with Dr. Guanakito Reeder. Please note, that there may be dictation errors. All questions were answered to the patient's satisfaction. 05/15/2024 Essential hypertensi on (ICD-10 - I10) Emir is a pleasant 74-year-old medically complex male who presents via telehealth in regards to his abnormal lab results that were ordered by , a hand surgeon. #vascular surgery note from [facility]: Date of service 08/12/2020, plan stated [...] hematology note: Patient was last seen by [facility] hematology on 07/30/2019, this states that [...] Dictation was accomplished with the use of [employer] voice recognition software, which is prone to medical misidentifications and grammatical errors. This are unintentional and the practitioner does try to identify and correct these, but some could still be present. Please do not hesitate to contact practitioner for clarification. 03/12/2024 Cough (ICD-10 - R05.9) Wellness visit: # Erythrocytosis: : CBC conducted in June 2023 that showed a red blood cell count of 6.65 and a hemoglobin of 20.9, hematocrit was 60.4 and platelet count of 45. Recent labs on 03/08 CBC showed RBC of 6.17, Hemoglobin of 19.6, hematocrit of 59.3 and platelet count of 70. Patient declined hematology referral placed. Suspect possible secondary polycythemia due to COPD. # Chronic A Fib. On NOAC , Eliquis 5 mg po BID. On Digoxin. Level not obtained. Will obtain EKG at next visit. Dig level will also be checked. #Immunzation: In office recommended obtaining the Prevnar 20 vaccine, flu vaccine and COVID booster # Chronic Cough: Suspect underlying COPD. Patient presents the office with a productive white sputum cough for the past month. Spoke to the patient about potential lung cancer surveillance with ordering a CT scan, patient admits he will think about this and we will discuss this at follow-up visit in 1 month. At this time a chest x-ray has been ordered to rule out any potential respiratory infections, due to rhonci heard on exam. Will treat accordingly to the chest x-ray results. Patient is to continue to utilize his inhaler daily. # Essential HTN:Blood pressure in office today is 156/76. Patient is to continue taking his losartan, will recheck blood pressure at follow-up visit in 1 month. May need to increase Losartan dose, or add on Ca channel ngoc. Cessation with smoking, low salt diet and weight loss would also benefit in antihypertensive treatment # Hyperlipidemia: Only abnormal value found on the labs from 03/08 was an HDL cholesterol of 35. Patient is to continue with his current cholesterol medications that include atorvastatin 40 mg. Will continue to monitor patient and encourage healthier fats in the diet. # Peripheral vascular disease: Patient is to call the office if there are any significant changes to his legs bilaterally. Patient notes that his left lower leg the scar is slowly healing and he applies moisturizer on it daily # Nicotine abuse: Patient has no interest in smoking cessation today. He admits that he continues to smoke 1 pack daily. Will discuss lung cancer surveillance at follow-up as he has been educated on the benefits of performing a CT scan. # Screenings: Declines colon cancer screening Physical Men Patient seen and examined. Comprehensive discussion was done on the following. 1. Nutrition: It is important to follow a healthy diet based on lots of vegetables and legumes and good fat. Avoid processed food and processed carbohydrates. Learn to prepare your own meals. Learn to read labels and avoid high fructose corn syrup, processed chemicals added to increase shelf life and preprepared meals. Avoid fast foods. Learn to eat slowly and plan meals for a week. Try to count calories and be mindful off daily calorie intake. Get into the habit of keeping an eye on your weight by using an appropriate scale. Learn to log exercise and discussed fitness Apps like [employer] which can help keep log off calories taken versus calories burned. Local food should be preferred. Discussed Dirty Dozen Versus Clean Fifteen. Discussed healthy supplements like fish oil, Tumeric, Curcumin, Melatonin, Resveratrol, Probiotics, Vitamin-D, Alpha-Lipoic acid, Vitamin-D and coconut oil. 2. It is important to exercise regularly. Is a good habit to walk at least 30-45 minutes a day. Gentle weightlifting with standard precautions to protect the back. Finding activity like cycling or hiking and get into the habit of engaging in it. Stretching before and after the exercises important. It is also important to contact me if there are any problems like shortness of breath, chest pain, back pain and joint or muscle pain associated with the exercise. 3. Discussed age appropriate screening guidelines. Colonoscopy needs to start at age 50 with stool for occult blood as appropriate. There is a new test that can test for genetic abnormalities in the stool sample. This would not replace a colonoscopy but could be used as a screening tool for patients who do not want a colonoscopy. We discussed the importance of early detection of colon cancer. 4. Discussed current PSA screening. PSA screening can be done in most patients between age 50 and 65. However early detection of prostate cancer needs to carefully be balanced with complications with treatment. These include incontinence, impotence etc. Each patient should decide if they would like to have this test. 5. Discussed safe driving and no use of smart phone while driving 6. Age-appropriate immunizations were discussed. A tetanus booster is needed every 10 years. Flu vaccine is recommended every year just before the start of the flu season. Shingles vaccine is recommended after age 50 but not all insurances cover it. Pneumonia vaccine is given after age 65 unless there are certain comorbidities for which it is started earlier. 7. Diagnostic labs were discussed. These could include CBC CMP and lipids with fasting blood glucose and insulin levels. Vitamin D and hemoglobin A1c testing might be appropriate. Patient is here for a Medicare wellness visit. Complete paperwork was reviewed and updated and has been filed and scan. Depression screen completed. Alcohol AUDIT SCREEN completed. Obesity screen completed. Cardiovascular risk stratification screen completed. Cognition assessed and within reasonable limits Fall risk assessed Discussed healthcare proxy. Discussed [place] order for life sustaining treatment, end-of-life issues, intubation and resuscitation dialysis artificial nutrition and hydration is appropriate. Case was discussed with Dr. Guanakito Reeder. Please note, that there may be dictation errors. All questions were answered to the patient's satisfaction. PLAN OF TREATMENT Pending Test Test Name Order Date DEXA 08/29/2024 X ray : Chest with 2 views 03/12/2024 CBC (COMPLETE BLOOD COUNT) 11/04/2020 COMPREHENSIVE METABOLIC PANEL 11/04/2020 HEMOGLOBIN A1C 11/04/2020 LIPID PANEL 11/04/2020 PSA, SCREEN 11/04/2020 TSH 11/04/2020 URINALYSIS, COMPLETE 11/04/2020 URINE CULTURE 03/06/2022 Cologuard 06/13/2018 LIPID PANEL, STANDARD 10/31/2021 LIPID PANEL, STANDARD 10/31/2023 LIPID PANEL, STANDARD 05/15/2024 LIPID PANEL, STANDARD 08/28/2022 LIPID PANEL, STANDARD 03/26/2023 COMPREHENSIVE METABOLIC PANEL 10/31/2023 COMPREHENSIVE METABOLIC PANEL 03/26/2023 COMPREHENSIVE METABOLIC PANEL 08/28/2022 COMPREHENSIVE METABOLIC PANEL 05/15/2024 COMPREHENSIVE METABOLIC PANEL 10/31/2021 COMPREHENSIVE METABOLIC PANEL 03/03/2021 BASIC METABOLIC PANEL 05/15/2024 CBC (INCLUDES DIFF/PLT) 05/15/2024 CBC (INCLUDES DIFF/PLT) 10/31/2021 CBC (INCLUDES DIFF/PLT) 08/28/2022 CBC (INCLUDES DIFF/PLT) 03/26/2023 CBC (INCLUDES DIFF/PLT) 10/31/2023 CBC (INCLUDES DIFF/PLT) 03/03/2021 URINALYSIS, COMPLETE 08/28/2022 URINALYSIS, COMPLETE 10/31/2023 URINALYSIS, COMPLETE 03/26/2023 URINALYSIS, COMPLETE 03/06/2022 URINALYSIS, COMPLETE 10/31/2021 URINALYSIS, COMPLETE 03/03/2021 C-REACTIVE PROTEIN 05/15/2024 HEMOGLOBIN A1c 03/03/2021 HEMOGLOBIN A1c 08/28/2022 HEMOGLOBIN A1c 10/31/2023 HEMOGLOBIN A1c 10/31/2021 VITAMIN B12 05/15/2024 VITAMIN D,25-OH,TOTAL,IA 05/15/2024 DIGOXIN 05/15/2024 Next Appt Details Provider Name:THANIA BAILEY, 01:45:00 PM, [address], [place], [address], Provider Name:THANAI BAILEY, 01:00:00 PM, [address], [place], [address], Insurance Providers Payer Name Payer Address Payer Phone Subscriber Number Group Number Insured Name Patient Relationship to Insured Coverage Start Date Coverage End Date Medicare Part B J14 [address] [place] [phone] [id number] ISABELLA HENDERSON Self - patient is the insured [facility] [address] [place] [address] [id number] ISABELLA HENDERSON Self - patient is the insured MEDICAL (GENERAL) HISTORY Medical History History ICD Code Unspecified atrial fibrillation I48.91 Essential (primary) hypertension I10 Hyperlipidemia, unspecified E78.5 GERD without esophagitis K21.9 Asthma J45.909 Heart failure, unspecified I50.9 Prediabetes R73.03 Obesity (BMI 30-39.9) E66.9 PVD (peripheral vascular disease) I73.9 Nicotine abuse Z72.0 Surgical History Surgery Date(Month/Year) shoulder arthroscopy appendectomy left eye Endartectomy Hospitalization History Reason Date(Month/Year) 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
--- OUTSIDE RECORDS SUMMARY | 2024-10-09 13:44 | XMS_ITS ---
Author Organization [facility] Address [address] [place] [address] Care Team Providers Care Curator Of Manuscripts Name Role Phone Guanakito Reeder Primary Care Provider Cedric wade Sujit Main Unavailable [phone] REASON FOR VISIT At Risk Footcare, Painful [...] tobacco user? No Vital Signs Height 5ft 10 in in 05/05/2024 Weight 260 lbs 05/05/2024 BMI 37.3 kg/m2 05/05/2024 Procedures Procedure Date Ordered Date Performed Result Body Sit e 34427-ROHPJEU NAIL, 6 OR MORE 05/05/2024 N/A 49538-EFRR SKIN LESIONS, OVER 4 05/05/2024 N/A Encounters Encounter Location Date Provider Diagnosis [facility] [place] [address] [place] [id number] 05/05/2024 Sujittrudi Liier Atherosclerosis of [place] artery of both lower extremities, with unspecified presence of clinical manifestation I70.203 ; Tinea unguium B35.1 ; Pain in right toe(s) M79.674 and Pain in left toe(s) M79.675 Assessments Encounter Date Diagnosis (ICD Code) Assessment Notes Treatment Notes Treatment Clinical Notes Section Notes 05/05/2024 Atherosclerosis of [place] artery of both lower extremities, with unspecified presence of clinical manifestation (ICD-10 - I70.203) Q7(A), Q8(2B), Q9(1B,2C) 05/05/2024 Tinea unguium (ICD-10 - B35.1) 05/05/2024 Pain in right toe(s) (ICD-10 - M79.674) 05/05/2024 Pain in left toe(s) (ICD-10 - M79.675) Plan Of Treatment Pending Test Test Name Order Date 28557-CIXATKX NAIL, 6 OR MORE 05/05/2024 22863-PREF SKIN LESIONS, OVER 4 05/05/20 24 Next Appt Details Follow Up: prn, Reason: Provider Name:Sujittrudi Main , 11/13/2024 01:00:00 PM, [address] [facility], [place] [address], [place], [address], Procedure Notes * Category Sub-Category Detail Notes [...] use of a nail nipper and/or dremel-type cutlery grinder, to a more viable healthy nail [...] to maintain effectiveness in symptomatic relief - 95720 Keratoma Treatment Parring or Cutting o f Benign Hyperkeratotic Lesion(s) (-57) More than 4 Lesions - The Benign hyperkeratotic lesions, ( 6) in total, locations as stated and described in exam, were pared, and/or cut utilizing a sterile 15 blade, tissue nippers, and/or power dremel instrumentation - 22842, Q8 Progress Notes * Willie HENDERSON LDOB:[birth year] (74 yo M)Acc No.[id number]:05/05/2024 Progress Note Patient:?Willie HENDERSON L Provider:?Sujit Main DPM :1950???Age:74 Y???Sex:Male Antonino e:05/05/2024 Address:[address] [place] [phone] Pcp:Guanakito Reeder Subjective: * Chief Complaints: * [...] and time.? Assessment: * Assessment: 1.?Atherosclerosis of [place] artery of both lower extremities, with unspecified presence of clinical manifestation - I70.203 (Primary)???Notes :Q7(A), Q8(2B), Q9(1B,2C)???2.?Tinea unguium - B35.1???3.?Pain in right toe(s) - M79.674???4.?Pain in left toe(s) - M79.675??? Plan: * Treatment: 2.?Tinea unguium?Procedure: 53657-HKTFSFF NAIL, 6 OR MORE * Procedures:?Debride Nail [...] use of a nail nipper and/or dremel-type cutlery grinder, to a more viable healthy nail [...] to maintain effectiveness in symptomatic relief - 17881.?Keratoma Treatment:?Parring or Cutting of Benign Hyperkeratotic Lesion(s)?(-57) More than 4 Lesions - The Benign hyperkeratotic lesions, ( 6) in total, locations as stated and described in exam, were pared, and/or cut utilizing a sterile 15 blade, tissue nippers, and/or power dremel instrumentation - 17988, Q8.? * Procedure Codes:?70922 DEBRI DE NAIL, 6 OR MORE, Modifiers: XS 66509 TRIM SKIN LESIONS, OVER 4, Modifiers: XS , Q8 * Preventive Medicine:? ??Counseling:?Tobacco use:?Type of Tobacco Use Cessation Counseling provided?Smoking effects education I gotta have something. My 2 years ago and I don't drink * Follow Up:?prn * Images: * Sign off status: Completed true * Provider:?Sujit Main DPM Date:?2023 Generated for Ayaka parrish/Kimberly/Sumaya on:?10/09/2024 01:43 PM EDT History and Physical Notes * [...] visit today ORIENTED: person, place, and t ryder Vascular DP PULSES (B): 0/4, B/L PT [...]
--- OUTSIDE RECORDS SUMMARY | 2024-10-09 13:44 | XMS_ITS | Patient Health Record ---
[facility] Organization [facility] Address [address] [place] [address] Care Team Providers Care Story Analyst Name Role Phone Reeder, Guanakito Primary Care Provider Sujit Abdul Unavailable [phone] Vaibhav Gordon Unavailable [phone] Allergies No Known Allergies Results Component Value Reference Range Notes HEMOGLOBIN A1C (GLYCOHEMOGLO BIN) Reviewed date:08/13/2024 01:13:33 PM Interpretation: Performing Lab: Notes/Report: HEMOGLOBIN A1C % (HH) 7.0 Reason For Referral No Information Medications Medication SIG (Take, Route, Frequency, Duration) Notes Start Date End Date Status Montelukast Sodium 10 MG 1 tablet Orally Once a day for 30 day(s) Active Acetaminophen 2 capsules at bedtime Active Probiotic Active Amiodarone HCl 200 MG 1 tablet Orally Once a day Active Tamsulosin HCl Activ e Aspirin 81 MG 1 tablet Orally Once a day for 30 day(s) Active Vitamin D3 2000 [place] A ctive Eliquis 5 MG Orally Active Furosemide 20 [...] Once a day for 30 day(s) Active metFORMIN HCl ER 500 MG TAKE 2 TABLETS B Y MOUTH DAILY IN THE EVENING Oral for 90 Days Active Digoxin 125 MCG Orally Acti ve Doxycycline Calcium Active Immunizations Vaccine Route Administration Date Status [...] Problem Status W/U Status Risk Notes Problem Acquired hammer toe of right foot (3283429009364 105) Other hammer toe(s) (acquired), right foot (M20.41) Active confirmed Problem Type 2 diabetes mellitus with peripheral angiopathy (276379046) Type 2 diabetes mellitus with diabetic peripheral angiopathy without gangrene (E11.51) Active confirmed Q7(A), Q8(2B), Q9(1B,2C) Problem Acquired hammer toe of left foot (5127265405433 103) Other hammer toe(s) (acquired), left foot (M20.42) Active confirmed Vital Signs Blood pressure diastolic 65 mm Hg 08/13/2024 Height 5ft 10in in 08/13/2024 Blood pressure systolic 133 mm Hg 08/13/2024 Weight 260 lbs 08/13/2024 BMI 37.3 kg/m2 08/13/2024 Procedures Procedure Date Ordered Date Performed Result Body Sit e 81213, J0702- INJECT or DRAI N, JOINT/BURSA 11/09/2023 N/A 68488-GMPPHLJ NAIL, 6 OR MORE 05/05/2024 N/A 10742-EQVE SKIN LESIONS, OVER 4 05/05/2024 N/A 98565-NGOIWFK NAIL, 6 OR MORE 08/13/2024 N/A 90135-PCRD SKIN LESIONS, OVER 4 08/13/2024 N/A Encounters Encounter Location Date Provider Diagnosis [address] [address] 11/09/2023 Vaibhav Gordon Pain in left foot M79.672 ; Pain in right foot M79.671 ; Ingrowing nail L60.0 ; Primary osteoarthritis, right ankle and foot M19.071 ; Tinea unguium B35.1 ; Pain in right toe(s) M79.674 ; Pain in left toe(s) M79.675 ; Other hammer toe(s) (acquired), left foot M20.42 and Atherosclerosis of artery of both lower extremities I70.[address] [address] 02/08/2024 Vaibhav Gordon Pain in left foot M79.672 ; Pain in right foot M79.671 ; Ingrowing nail L60.0 ; Primary osteoarthritis, right ankle and foot M19.071 ; Tinea unguium B35.1 ; Pain in right toe(s) M79.674 ; Pain in left toe(s) M79.675 ; Other hammer toe(s) (acquired), left foot M20.42 and Atherosclerosis of artery of both lower extremities I70.[address] [address] 05/05/2024 Sujit Main Atherosclerosis of lower [place] artery of both lower extremities, with unspecified presence of clinical manifestation I70.203 ; Tinea unguium B35.1 ; Pain in right toe(s) M79.674 and Pain in left toe(s) M79.675 [facility] [place] [address] [facility] [address] [place] [address] 08/13/2024 Sujit Etelvina Type 2 diabetes mellitus with diabetic peripheral angiopathy without gangrene E11.51 ; Tinea unguium B35.1 ; Pain in right toe(s) M79.674 ; Pain in left toe(s) M79.675 ; Other hammer toe(s) (acquired), left foot M20.42 and Other hammer toe(s) (acquired), right foot M20.41 [facility] [place] [address] [place] [address] 05/05/2024 Sujit Hernandezunier Assessments Encounter Date Diagnosis (ICD Code) Assessment Notes Treatment Notes Treatment Clinical Notes Section Notes 11/09/2023 Pain in left foot (ICD-10 - M79.672) 02/08/2024 Pain in left foot (ICD-10 - M79.672) 05/05/2024 Atherosclerosis of [place] artery of both lower extremities, with unspecified presence of clinical manifestation (ICD-10 - I70.203) Q7(A), Q8(2B), Q9(1B,2C) 08/13/2024 Type 2 diabetes mellitus with diabetic peripheral angiopathy without gangrene (ICD-10 - E11.51) Q7(A), Q8(2B), Q9(1B,2C) 08/13/2024 Tinea unguium (ICD-10 - B35.1) 05/05/2024 Tinea unguium (ICD-10 - B35.1) 02/08/2024 Pain in right foot (ICD-10 - M79.671) 11/09/2023 Pain in right foot (ICD-10 - M79.671) 11/09/2023 Ingrowing nail (ICD-10 - L60.0) 02/08/2024 Ingrowing nail (ICD-10 - L60.0) 05/05/2024 Pain in right toe(s) (ICD-10 - M79.674) 02/08/2024 Primary osteoarthritis, right ankle and foot (ICD-10 - M19.071) 08/13/2024 Pain in right toe(s) (ICD-10 - M79.674) 08/13/2024 Pain in left toe(s) (ICD-10 - M79.675) 05/05/2024 Pain in left toe(s) (ICD-10 - M79.675) 02/08/2024 Tinea unguium (ICD-10 - B35.1) 11/09/2023 Primary osteoarthritis, right ankle and foot (ICD-10 - M19.071) 02/08/2024 Pain in right toe(s) (ICD-10 - M79.674) 11/09/2023 Tinea unguium (ICD-10 - B35.1) 08/13/2024 Other hammer toe(s) (acquired), left foot (ICD-10 - M20.42) 08/13/2024 Other hammer toe(s) (acquired), right foot (ICD-10 - M20.41) Patient Educated with: DIABETIC FOOT CARE INSTRUCTIONS. pdf (DIABETIC FOOT CARE INSTRUCTIONS. pdf) 11/09/2023 Pain in right toe(s) (ICD-10 - [...] X ray : Foot, left 3V 07/22/2021 51592-ZVMRHBI NAIL, 6 OR MORE 05/05/2024 39887-ARTHOBX NAIL, 6 OR MORE 08/13/2024, J0702- INJECT or DRAIN, JOINT/BUR SA 05/11/2023, J0702- INJECT or DRAIN, JOINT/BUR SA 11/09/2023, J0702- INJECT or DRAIN, JOINT/BUR SA 11/04/2021, J0702- INJECT or DRAIN, JOINT/BUR SA 07/05/2021 85209-YCYU SKIN LESIONS, OVER 4 05/05/20 24 39946-TLXJ SKIN LESIONS, OVER 4 08/14/19 86005-UEUC SKIN LESIONS, 2 TO 4 02/03/20 23 X ray : Ankle, right 3V 11/25/2019 Next Appt Details Provider Name:Sujit Main , 11/13/2024 01:00:00 PM, [address] [facility], [address], [place], [address], Insurance Providers Payer Name Payer Address Payer Phone Subscriber Number Group Number Insured Name Patient Relationship to Insured Coverage Start Date Coverage End Date Medicare National Govt [employer] [address] [place] [address] [id number] Willie Morrison Self - patient is the insured [employer] [address] [place] [address] [id number] Willie Morrison Self - patient is the insured Medical (General) History Medical History History ICD Code Arthritis Back,Hip,and Knee pain CAD (Cholesterol) Heart disease Vascular phlebitis (clots) Chicken pox Transfusions AFib Right Coroted Artey 75% Sm 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
--- OUTSIDE RECORDS SUMMARY | 2024-10-09 13:45 | XMS_ITS ---
Author Organization [facility] Address [address] [place] [address] Care Team Providers Care Flap Lining Binder Name Role Phone LYNN, THANIA Unavailable [phone] REASON FOR VISIT DM shoes Encounters Encounter Location Date Provider Diagnosis [facility] [address] [place] [address] 09/18/2024 THANIA BAILEY PLAN OF TREATMENT Next Appt Details Provider Name:THANIA BAILEY, 01:45:00 PM, [address], [place], [address], Provider Name:THANIA BAILEY, 01:00:00 PM, [address], [place], [address], Progress Notes * ISABELLA HENDERSON LDOB:[birth year] (74 yo M)Acc No.[id number]:09/18/2024 Patient:??ISABELLA HENDERSON :1950?Age:74 Y?Sex:Kristen springer Address:[address], [place] [address] * true * Date:??
--- OUTSIDE RECORDS SUMMARY | 2024-10-09 13:45 | XMS_ITS ---
Author Organization [facility] Address [address] [place] [address] Care Team Providers Care Marketing Planning Manager Name Role Phone LYNNTHANIA Rosa Unavailable [phone] ALLERGIES No Known Allergies REASON FOR VISIT Patient is here for 3 month in person follow up. Labs done for review. Patient is a little upset that Rhematology has not reach out to him, His arthritis has been bothering him. He saw hematology on 07/03. Overall, He is doing well. Patient needs a refill on Losartan, digoxin, atorvastatin and tamsulosin. MEDICATIONS Medication SIG (Take, Route, Frequency, Duration) Notes Start Date End Date Status Digoxin 125 MCG TAKE 1 TABLET BY BANDAR TH EVERY DAY Orally Once a day for 90 days Active Losartan Potassium 25 MG TAKE 1 TABLET B Y MOUTH EVERY DAY Orally Once a day for 90 days Active Tamsulosin HCl 0.4 MG TAKE 1 CAPSULE BY MOUTH EVERY DAY Orally Once a day for 90 days Active Atorvastatin Calcium 40 MG TAKE 1 TABLET BY MOUTH EVERY DAY Orally Once a day for 90 days Active metFORMIN HCl ER 500 MG 2 tablets in the evening Orally Once a day for 30 days 07/15/2024 Active Montelukast Sodium 10 MG TAKE 1 TABLET B Y MOUTH EVERY EVENING for 90 Active Breo Ellipta 100-25 MCG/INH 1 Puff inhal ation once daily for 30 days PRN Active Metoprolol Tartrate 50 MG 1 tablet with food Orally Twice a day for 90 days Active Eliquis 5 MG TAKE 1 TABLET BY BANDAR TH TWICE DAILY for 90 Active Albuterol Sulfate HFA 108 (90 Base) MCG/ACT 1-2 puff as needed for sob Inhalation every 6 hrs for 30 days Active Pantoprazole Sodium 40 MG TAKE 1 TABLET BY MOUTH EVERY DAY for 90 Active Sildenafil Citrate 100 MG 1 tablet as ne eded for sex Orally Once a day for 30 days 10/31/2023 Active SOCIAL HISTORY Tobacco Use: Social History Observation Description Date Details (start date - stop date) Current Smoker NA - NA Sex Assigned At : Social History Observation Description Sex Assigned At Unknown Tobacco Use/Smoking Question Answer Notes Are you a current smoker How often do you smoke cigarettes? every day How many cigarettes a day do you smoke? 6-10 VITAL SIGNS Blood pressure systolic 128 mm Hg 07/15/19 25 Blood pressure diastolic 80 mm Hg 025 Heart Rate 76 /min 07/15/2024 Height 67 in 07/15/2024 Weight 271.4 lbs 07/15/2024 BMI 42.5 kg/m2 07/15/2024 Oximetry 98 % 07/15/2024 Encounters Encounter Location Date Provider Diagnosis [facility] [address] [place] [address] 07/15/2024 THANIA ROMANR Type 2 diabetes janey itus with unspecified complications E11.8 ; Paroxysmal atrial fibrillation I48.0 ; Cough R05.9 ; Essential (primary) hypertension I10 and Heart failure, unspecified I50.9 ASSESSMENTS Encounter Date Diagnosis Assessment Notes Treatment Notes Treatment Clinical Notes Section Notes 07/15/2024 Type 2 diabetes mellitus with unspecified [...] Dictation was accomplished with the use of [employer] voice recognition software, which is prone to medical misidentifications and grammatical errors. This are unintentional and the practitioner does try to identify and correct these, but some could still be present. Please do not hesitate to contact practitioner for clarification. 07/15/2024 Paroxysmal atrial fibrillation (ICD-10 - I48.0) [...] Dictation was accomplished with the use of [employer] voice recognition software, which is prone to [...] Dictation was accomplished with the use of [employer] voice recognition software, which is prone to [...] work, patient will start phlebotomy at [facility], obtaining smear for further evaluation of thrombocytopenia. [...] Dictation was accomplished with the use of [employer] voice recognition software, which is prone to [...] Dictation was accomplished with the use of [employer] voice recognition software, which is prone to medical misidentifications and grammatical errors. This are unintentional and the practitioner does try to identify and correct these, but some could still be present. Please do not hesitate to contact practitioner for clarification. PLAN OF TREATMENT Medication Medication Name Sig Start Date Stop Date Notes Digoxin 125 MCG TAKE 1 TABLET BY BANDAR TH EVERY DAY Orally Once a day for 90 days Losartan Potassium 25 MG TAKE 1 TABLET B Y MOUTH EVERY DAY Orally Once a day for 90 days Tamsulosin HCl 0.4 MG TAKE 1 CAPSULE BY MOUTH EVERY DAY Orally Once a day for 90 days Atorvastatin Calcium 40 MG TAKE 1 TABLET BY MOUTH EVERY DAY Orally Once a day for 90 days metFORMIN HCl ER 500 MG 2 tablets in the evening Orally Once a day for 30 days 07/15/2024 Next Appt Details Follow Up: 3 Months, Reason: ha1c Provider Name:THANIA BAILEY, 01:45:00 PM, [address] [facility], [place], [address], Provider Name:THANIA BAILEY, 01:00:00 PM, [address] [facility], [place], [address], Procedure Notes * Category Sub-Category Detail Notes POC Hemoglobin A1C in office A1C 6.8 Progress Notes * ISABELLA HENDERSON LDOB:[birth year] (74 yo M)Acc No.[id number]:07/15/2024 Progress Notes Patient:??SANTIAGO ISABELLA Lopez Provider:??THANIA BAILEY PA-C :1950?Age:74 Y?Sex:Ma le Date:07/15/2024 Address:[address] , [place], [place]-[address] Pcp:BRIDGET BENITEZ Subjective: * Chief Complaints: * ?1. Patient is here for 3 month in person follow up. Labs done for review. Patient is a little upset that Rhematology has not reach out to him, His arthritis has been bothering him. He saw hematology on 07/03. Overall, He is doing well. Patient needs a refill on Losartan, digoxin, atorvastatin and tamsulosin.. * HPI: ?Constitutional:? Isabella is a pleasant 74-year-old male with a past medical history of type 2 diabetes, A-fib, essential hypertension, hyperlipidemia, GERD, asthma, heart failure, obesity and PVD who presents to the office today for routine follow-up. Patient states that he has not yet heard back from rheumatology and is eliciting frustration at this time. Patient recently did see hematology on 08/31/2024. States that the appointment overall went well notes are as follows. ?#Recent hematology note: 74-year-old male with erythrocytosis last [...] further evaluation of thrombocytopenia. 3-month follow-up recommended. ?#Hemoglobin A1c: Patient's previous hemoglobin A1c conducted in 2023 demonstrated a value of 7.2, patient states that he was never alerted that he was a diabetic. Hemoglobin A1c within the office today demonstrates a value of 6.8. * ROS:?Constitutional: Patient denies any excessive fatigue [...] PND, no orthopnea, no irregular pulse ???Respiratory: +chronic cough, no hemoptysis, no sputum, no wheezing ???GI, no diarrhea, no constipation no blood in the stools, no pain associated with eating, no indigestion ???Genitourinary: No painful urination no hesitancy no blood in the urine ???Musculoskeletal, +Intermittent joint stiffness within the bilateral hands,no limitations to walking and running, no joint deformity, no joint stiffness, no chronic back pain, no noise with joint [...] bruising or Lymph node swelling. * Medical History:??Unspecifie d atrial fibrillation, Essential (primary) hypertension, Hyperlipidemia, unspecified, GERD without esophagitis, Asthma, Heart failure, unspecified, Prediabetes, Obesity (BMI 30-39.9), PVD (peripheral vascular disease), Nicotine abuse. * Surgical History:??shoulder arthroscopy , appendectomy , left eye , Endartectomy . * Hospitalization/Major Diagno stic Procedure:??Arterial Embolism and Thrombosis 04/15/2019, Sepsis due to PNA, resultant thrombocytopenia 02/2022. * Family History:??Father: dec eased, diagnosed with Unspecified essential hypertension.??Spouse: .??Mother: .??1 brother(s) , 2 sister(s) . 3 son(s) , 1 daughter(s) . .?? daughter dx with cirrosis of the liver father passed of heart attack mother old age. * Social History:?Tobacco Use:??Tobacco Use/Smoking??Are you a??current smoker,??How often do you smoke cigarettes???every day,??How many cigarettes a day do you smoke???6-10.?? * Medications:??Taking Eliquis 5 MG Tablet TAKE 1 TABLET BY MOUTH TWICE DAILY , Taking Pantoprazole Sodium 40 MG Tablet [...] food Orally Twice a day , Taking Montelukast Sodium 10 MG Tablet TAKE 1 TABLET BY MOUTH EVERY EVENING , Taking Breo Ellipta 100-25 MCG/INH Aerosol Powder Breath Activated 1 Puff inhalation once daily , Notes to Pharmacist: PRN, Taking Tamsulosin HCl 0.4 MG Capsule TAKE 1 CAPSULE BY MOUTH EVERY DAY , Taking Atorvastatin Calcium 40 MG Tablet TAKE 1 TABLET BY MOUTH EVERY DAY , Taking Digoxin 125 MCG Tablet TAKE 1 TABLET BY MOUTH EVERY DAY , Taking Losartan Potassium 25 MG Tablet TAKE 1 TABLET BY MOUTH EVERY DAY , Discontinued traMADol HCl 50 MG Tablet 1 tablet as needed Orally twice a day , Notes to Pharmacist: PRN, Discontinued Gabapentin 300 MG Capsule TAKE 1 CAPSULE BY MOUTH EVERY DAY AT BEDTIME , Medication List reviewed and reconciled with the patient * Allergies:??N.K.D.A. Objective: * Vitals:??HR:76/min, BP:128/8 0mm Hg, Wt:271.4lbs, BMI:42.5Index, Ht: 67 in, Oxygen sat %:98%. * Physical Examination:?General: Age appropriate male, well appearing, no acute distress, speaking in full sentences without respiratory compromise. Well groomed, well developed. ?Skin:+Scalp has multiple sun spots throughout. Warm, dry and intact. ?HEENT: Normocephalic/atraumatic. EOMI intact. PERRLA. Vision intact. No ptosis or lid lag. Nares without discharge or inflammation. Dentition poorly maintained. No pharyngeal erythema. ?Bilateral external ear canals are with cerumen ?Neck/Thyroid: Supple, with no lymphadenopathy. ?Lung: +Rhonci present in the bilateral upper lobes. ?Cardiac: S1 and S2 appreciated. No murmurs/rubs or gallops. ?Abdomen: Soft, nontender, normoactive bowel sounds. No rebound/guarding. No CVA tenderness. ?Extremities: Bilateral lower extremities with no edema or rubor. No evidence of varicose veins. ?MSK: +Venous stasis present in the lower legs bilaterally ?Neuro: CN II-XI grossly intact. Steady gait with ambulation observed. ?Psych: Stable mood and affect. Assessment: * Assessment: 1.??Type 2 diabetes mellitus with unspecified complications - E11.8 (Primary)??2.??Paroxysmal atrial fibrillation - I48.0??3.??Cough - R05.9??4.??Essential (primary) hypertension - I10??5.??Heart failure, unspecified - I50.9?? Emir is a pleasant 74-ye ar-old male who presents today for a follow [...] Dictation was accomplished with the use of [employer] voice recognition software, which is prone to medical misidentifications and grammatical errors. This are unintentional and the practitioner does try to identify and correct these, but some could still be present. Please do not hesitate to contact practitioner for clarification. Plan: * Treatment: * Procedures:?POC Hemoglobin A1C:?in office A1C??6.8.? * Procedure Codes:??40345 GLYC ATED HEMOGLOBIN TEST, Modifiers: QW * Follow Up:??3 Months (Reason : ha1c) * Images: Billing Information: * Visit Code:?? 17153 Office Visit, Est Pt., Level 4. * Procedure Codes:?? 28828 GLYCATED HEMOGLOBIN TEST. Modifiers: QW Care Plan Details* * Sign off status: Completed true * Provider:??THANIA BAILEY PA-C Date:??07/15 History and Physical Notes * HPI (History of Present Illness) Category Sub-Category Detail Notes Category Not es Constitutional Isabella is a pleasant 74-year-old male with a past medical history of type 2 diabetes, A-fib, essential hypertension, hyperlipidemia, GERD, asthma, heart failure, obesity and PVD who presents to the office today for routine follow-up. Patient states that he has not yet heard back from rheumatology and is eliciting frustration at this time. Patient recently did see hematology on 08/31/2024. States that the appointment overall went well notes are as follows. #Recent hematology note: 74-year-old male with erythrocytosis [...] further evaluation of thrombocytopenia. 3-month follow-up recommended. #Hemoglobin A1c: Patient's previous hemoglobin A1c conducted in 2023 demonstrated a value of 7.2, patient states that he was never alerted that he was a diabetic. Hemoglobin A1c within the office today demonstrates a value of 6.8. Physical Examination Category Sub-Category Detail Notes Section Note s General: Age appropriate male, well appearing, no acute distress, speaking in full sentences without respiratory compromise. Well groomed, well developed. Skin:+Scalp has multiple sun spots throughout. Warm, dry and intact. HEENT: Normocephalic/atraumatic. EOMI intact. PERRLA. Vision intact. No ptosis or lid lag. Nares without discharge or inflammation. Dentition poorly maintained. No pharyngeal erythema. Bilateral external ear canals are with cerumen Neck/Thyroid: Supple, with no lymphadenopathy. Lung: +Rhonci present in the bilateral upper lobes. Cardiac: S1 and S2 appreciated. No murmurs/rubs or gallops. Abdomen: Soft, nontender, normoactive bowel sounds. No rebound/guarding. No CVA tenderness. Extremities: Bilateral lower extremities with no edema or rubor. No evidence of varicose veins. MSK: +Venous stasis present in the lower legs bilaterally Neuro: CN II-XI grossly intact. Steady gait with ambulation observed. Psych: Stable mood and affect
== END 2024-10-09 11:33 | disposition home or self-care (01) ==
LOC: HO.BBR 11:32
PROVIDERS: PCP Internal Medicine; Visit Provider Physician Assistant Medical
DX: D75.1 Secondary polycythemia (principal)
CPT/HCPCS: 85014; 85018; 99195